=== PATIENT | male | born 1955 | race Caucasian/White ===

== ENCOUNTER 2019-12-06 22:35 | Emergency (ER) | payer MEDICARE, SELFPAY ==
[2019-12-06 22:43] VITALS: BP 150/79; PULSE 103; RESP 18; TEMP 36.8; O2SAT 95; BMI 44.3
--- NOTE | 2019-12-06 22:45 | ED_ITS ---
Entered by Melissa Carranza, acting as scribe for Jackie Chery HPI - General Adult General: Chief complaint: Recheck/Abnormal Lab/Rx Stated complaint: abnormal lab values Time Seen by Provider: 12/06/19 22:44 History of Present Illness: HPI narrative: 64 yo m came to the er for abd blood levels per doctor at a [facility]. Onset was today. Pt was went to go get his blood drawn at his clinic for an er follow and his labs came back abnormal per clinic Doc and she told him to come down to the er to get checked out. MD complaint: abnormal labs Onset (ago): day(s) (today) Associated symptoms: Reports no associated symptoms; Deny chest pain, confusion, diaphoresis, dyspnea, headache(s), malaise, nausea, rash, palpitations, syncope or vomiting Review of Systems General: Reports: other (negative unless marked) Const: Denies: fever, chills, body aches, fatigue, malaise or diaphoresis Eyes: Denies: change in vision or blurry vision ENMT: Denies: throat pain, painful swallowing, hoarseness, ear pain, ear discharge, Change in hearing or nasal discharge Card: Denies: chest pain, palpitations, irregular heart rhythm, syncope, pre- syncope, shortness of breath on exertion or shortness of breath when lying down Resp: Denies: shortness of breath, productive cough, non-productive cough, wheezing, coughing up blood or chest congestion GI: Denies: abdominal pain, nausea, vomiting, vomiting blood, coffee grounds in vomit, diarrhea, constipation, cramping, blood in stool or black tarry stool : Denies: flank pain, difficulty urinating, painful urination, urinary frequency, urinary urgency, decreased urine ouput, urinary incontinence or blood in urine Musc: Denies: neck pain, back pain, extremity pain, extremity swelling, joint pain, joint swelling, joint warmth or joint stiffness Skin/Breast: Denies: rash, skin tenderness or yellow skin Neuro: Denies: headache, numbness in extremities, weakness in extremities, changes in sensation, lack of coordination, difficulty walking, dizziness, vertigo or confusion Endo: Denies: excessive thirst, tired all the time, cold intolerance, excessive sweating, flushing or hot flashes Corey/Lymph: Denies: easy bruising, easy bleeding, petechiae or enlarged lymph nodes All/Imm: Denies: hives, throat swelling, tongue swelling, facial swelling or acute wheezing PFSH ED PFSH: Statuses (acute, chronic, etc) shown below reflect problem list status as previously entered and may not be historically accurate Medical History (Updated 12/06/19 @ 23:40 by Jackie Chery) Anemia (Acute) Arrhythmia (Acute) Arthritis (Acute) Atrial fibrillation (Acute) Atrial flutter (Acute) CAD (coronary artery disease) (Acute) Cellulitis (Acute) CHF (congestive heart failure) (Acute) COPD (chronic obstructive pulmonary disease) (Acute) Diabetes mellitus (Acute) DVT (deep venous thrombosis) (Acute) Hyperlipemia (Acute) Hypertension (Acute) Lung disease (Acute) Polycythemia (Acute) PVD (peripheral vascular disease) (Acute) Thyroid disease (Acute) Surgical History (Updated 12/06/19 @ 23:04 by Melissa Carranza) History of shoulder surgery (Acute) Social History Smoking and tobacco status: former smoker Physical Exam Const: COMMON NORMALS: no apparent distress, oriented x3, no limitations, healthy appearing and well nourished EXAM LIMITATIONS: no altered mental status GENERAL APPEARANCE: cooperative, well kempt and well developed ORIENTATION/CONSCIOUSNESS: Yes awake HENMT: COMMON NORMALS: normocephalic, head/scalp atraumatic, hearing grossly normal bilaterally, external ears normal, EAC's normal, external nose normal and moist oral mucous membranes HEAD & SCALP: normal to inspection, normocephalic and atraumatic FACE & SINUS: normal facial exam and face symmetric NOSE: external nose normal and nares normal EXTERNAL EAR: Yes external ears normal EXTERNAL AUDITORY CANAL: EAC's normal MOUTH: oral and palatal mucosa normal and tongue normal Eye: COMMON NORMALS: PERRL, EOMs intact bilaterally, conjunctivae normal and no scleral icterus GENERAL EYE: normal appearance of both eyes and normal light reflex CONJUNCTIVA: Yes conjunctivae normal SCLERA: sclerae normal CORNEA: Yes corneas normal PUPIL: Yes PERRL DIRECT OPHTHALMOSCOPY: Yes normal light reflex Neck/C-Spine: COMMON NORMALS: full ROM, no lymphadenopathy, supple, no meningeal signs and no JVD GENERAL: Yes normal visual inspection and Yes trachea midline CERVICAL SPINE: Yes cervical ROM normal Chest: COMMONS NORMALS: inspection of chest normal and palpation of chest normal Resp: COMMON NORMALS: normal respiratory effort, no retractions, no use of acc essory muscles and clear to auscultation bilaterally EFFORT & INSPECTION: Yes able to speak in complete sentences AUSCULTATION: clear to auscultation bilaterally Cardio: COMMON NORMALS: no JVD, regular rate, regular rhythm, S1 normal heart sound, S2 normal heart sound, no gallops, no clicks, no murmurs and no rub JUGULAR VENOUS DISTENTION: no JVD RATE: regular rate RHYTHM: regular rhy thm HEART SOUNDS: S1 normal and S2 normal GI: COMMON NORMALS: soft to palpation, non-tender, no hepatosplenomegaly and no masses INSPECTION: Yes normal to inspection PALPATION: Yes soft and Yes no hepatosplenomegaly : COMMON NORMALS: Yes no CVA tenderness BLADDER/KIDNEY EXAM: Yes no CVA tenderness Back/Pelvis: COMMON NORMALS: no CVA tenderness, thoracic and lumbar spine normal to inspection, no thoracic nor lumbar tenderness and thoraco-lumbar ROM normal Extremity: COMMON NORMALS: normal to inspection, full ROM, normal capillary refill, no joint enlargement, no clubbing, cyanosis or edema and no calf tenderness Neuro: COMMON NORMALS: oriented x3, CN's II-XII intact bilaterally, moves all extremities, no focal motor deficits and no sensory deficits noted MENINGEAL SIGNS: Yes no meningeal signs Psych: COMMON NORMALS: mental status grossly normal, thought process normal, cooperative, affect normal, speech normal and activity/motor behavior normal APPEARANCE: Yes well kempt SPEECH: Yes normal speech THOUGHT PROCESS: normal thought process Skin: COMMON NORMALS: no rashes or lesions noted, skin turgor normal, no jaundice, no petechiae and no mottling GENERAL SKIN EXAM: no rashes or lesions noted and turgor normal Course Vital Signs: Vital signs: Vital Signs Temperature 98.2 F 12/06/19 22:43 Pulse Rate 103 H 12/06/19 22:43 Respiratory Rate 18 12/06/19 22:43 Blood Pressure 150/79 12/06/19 22:43 Pulse Oximetry 95 12/06/19 22:43 MDM - General Adult MDM Narrative: Medical decision making narrative: The patient has no chest pain, shortness of breath or other complaints. He is here solely because he was told he had a potassium of 6 something. His potassium is slightly elevated at 5.3 which could even be from hemolysis still but his creatinine is also slightly elevated at 1.3. He has none of his medications with him so I am uncertain if this is a medication effect but I believe he may have been slightly over diuresed recently. He has no symptoms from this and his hyperkalemia is minimal. He wants to go home. He declines any further evaluation or care here. Because this is more complicated and I will need to review his medications he agrees to follow-up tomorrow with his primary care doctor. I did call Dr. Solano who is agreed to see the patient in his office for recheck and will be certain he is fit and to the schedule by him or 1 of his partners tomorrow. I reviewed this with the patient and he is in agreement. Lab Data: Attestation: I reviewed the patient's lab results. Labs: Lab Results 12/06/19 12/06/19 12/06/19 Range/Units 22:54 22:54 23:15 WBC 9.5 (4.0-10.0) 10^3/ uL RBC 7.64 H (4.1-5.3) 10^6/u L Hgb 15.0 (11.7-16.6) g/dL Hct 55.5 H (42.0-52.0) % MCV 72.6 L (80-94) fL MCH 19.6 L (28.0-34.0) pg MCHC 27.0 L (30.0-36.0) g/dL RDW 22.1 H (12.1-15.1) % Plt Count 252 (130-400) 10^3/c mm MPV 10.7 H (7.4-10.4) fL Neut % (Auto) 70.2 % Lymph % (Auto) 15.4 % Trinity % (Auto) 10.2 % Eos % (Auto) 2.7 % Baso % (Auto) 0.8 % Neut # (Auto) 6.6 (1.8-7.7) 10^3/u L Lymph # (Auto) 1.5 (0.8-4.8) 10^3/u L Trinity # (Auto) 1.0 H (0.2-0.9) 10^3/u L Eos # (Auto) 0.3 (0.0-0.8) 10^3/u L Baso # (Auto) 0.1 (0.0-0.1) 10^3/u L Nucleated RBC % (a uto) 0.2 % Nucleated RBCs # 0.0 /100WBC Sodium 131 L (136-145) mmol/L Potassium 5.3 H (3.5-5.1) mmol/L Chloride 92 L (98-107) mmol/L Carbon Dioxide 27 (22-29) mmol/L Anion Gap 17.3 (5-19) BUN 30 H (8-23) mg/dL Creatinine 1.3 H (0.7-1.2) mg/dL GFR Calculation 55.6 L (90-130) mL/min Glucose 252 H (74-106) mg/dL Calcium 9.7 (8.5-10.5) mg/dL Total Bilirubin 0.9 (0.15-1.2) mg/dL AST 21 (0-40) U/L ALT 23 (0-41) U/L Alkaline Phosphata se 66 (40-130) IU/L Total Protein 7.5 (6.6-8.7) g/dL Albumin 4.5 (3.5-5.2) g/dL Globulin 3.0 (1.3-4.6) g/dL Urine Color Yellow (Yellow) Urine Appearance Clear (CLEAR) Urine pH 5 (5-7) Ur Specific Gravit y 1.010 (1.005-1.030) Urine Protein Neg (Negative) Urine Glucose (UA) 4+ H (Normal) Urine Ketones Negative (Negative) Urine Occult Blood Neg (Negative) Urine Nitrate Negative (Negative) Urine Bilirubin Neg (NEGATIVE) Urine Urobilinogen Norm (Negative) mg/dL Ur Leukocyte Mari ase Negative (Negative) Urine RBC None (0-2) /hpf Urine WBC None (0-5) /hpf Ur Squamous Epith Cells None (0-5) Urine Bacteria None (NONE) Discharge Plan Discharge Patient Disposition: Home, Self-Care Clinical Impression: Acute hyperkalemia, Acute renal insufficiency Condition: Stable Discharge Orders: Discharge Order (Routine); Ordered 12/06/19 Ordered By: Jackie Chery Referrals: Hayden Solano Jr, MD [Staff Physician] - 12/07/19 (Be certain to call first thing in the morning is Dr. Solano has assured me he will see you in the office for recheck) Kelsey Burgos, [Primary Care Provider] - Discharge Diet: Advance as tolerated Discharge Activity: Increase activity as tolerated Patient Instructions: Hyperkalemia (ED), Impaired Kidney Function (ED) Activity Restrictions/Additional Instructions: Please return to the ER immediately for any of the signs or symptoms listed on your discharge instruction sheets, worsening/changing of your symptoms, you are not getting better as quickly as expected, or for ANY other cause or concerns. Be certain to follow-up with your doctors at your clinic tomorrow to review all of your blood pressure medications and diuretics. Continue oral fluids but hold off any of your diuretics or blood pressure medications until you see and review those with them. If for any reason you cannot be seen by your doctors tomorrow bring all of your medications with you to the ER and we will review them with you and recheck your potassium and kidney function. I have reviewed your case with Dr. Solano and he has assured me he or 1 of his partners will see you in the office tomorrow for recheck so be certain to call first thing in the morning and bring all of your medications with you so they can review this with you in the office. 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
[2019-12-06 23:04] LABS: Basophils # 0.1 10^3/uL (0.0-0.1); Basophils % 0.8 %; Eosinophils # 0.3 10^3/uL (0.0-0.8); Eosinophils % 2.7 %; Hematocrit 55.5 % (42.0-52.0); Lymphocytes # 1.5 10^3/uL (0.8-4.8); Lymphocytes % 15.4 %; Mean Corpuscular Hemoglobin 19.6 pg (28.0-34.0); Mean Corpuscular Volume 72.6 fL (80-94); Mean Platelet Volume 10.7 fL (7.4-10.4); Monocytes % 10.2 %; Neutrophils # 6.6 10^3/uL (1.8-7.7); Neutrophils % 70.2 %; Nucleated Red Blood Cells % 0.2 %; Platelet Count 252 10^3/cmm (130-400); Red Blood Count 7.64 10^6/uL (4.1-5.3); Red Cell Distribution Width 22.1 % (12.1-15.1); White Blood Count 9.5 10^3/uL (4.0-10.0)
[2019-12-06 23:14] LABS: Slide Review Slide Review Perform
[2019-12-06 23:23] LABS: Alanine Aminotransferase 23 U/L (0-41); Albumin Level 4.5 g/dL (3.5-5.2); Alkaline Phosphatase 66 IU/L (40-130); Anion Gap 17.3 (5-19); Aspartate Amino Transferase 21 U/L (0-40); Blood Urea Nitrogen 30 mg/dL (8-23); Calcium 9.7 mg/dL (8.5-10.5); Carbon Dioxide 27 mmol/L (22-29); Chloride 92 mmol/L (98-107); Glomerular Filtration Rate 55.6 mL/min (90-130); Glucose 252 mg/dL (74-106); Potassium 5.3 mmol/L (3.5-5.1); Sodium 131 mmol/L (136-145); Total Bilirubin 0.9 mg/dL (0.15-1.2); Total Protein 7.5 g/dL (6.6-8.7)
[2019-12-06 23:39] LABS: Bilirubin Urine Neg (NEGATIVE); Blood Urine Neg (Negative); Glucose Urine UA 4+ (Normal); Ketones Urine Negative (Negative); Leukocyte Esterase Urine Negative (Negative); Nitrate Urine Negative (Negative); Protein Urine Neg (Negative); Urine Appearance Clear (CLEAR); Urine Color Yellow (Yellow); Urobilinogen Urine Norm (Negative); pH Urine 5 (5-7)
[2019-12-06 23:49] VITALS: BP 118/72; PULSE 90; RESP 16; O2SAT 93
== END 2019-12-06 23:56 | disposition home or self-care (01) ==
PROVIDERS: Emergency Provider Emergency Medicine; Family Provider Family Medicine; PCP Family Medicine
DX: E87.5 Hyperkalemia (principal); N28.9 Disorder of kidney and ureter, unspecified; I48.91 Unspecified atrial fibrillation; I25.10 Atherosclerotic heart disease of native coronary artery without angina pectoris; I11.0 Hypertensive heart disease with heart failure; I50.9 Heart failure, unspecified; J44.9 Chronic obstructive pulmonary disease, unspecified; E11.9 Type 2 diabetes mellitus without complications; E78.5 Hyperlipidemia, unspecified; I73.9 Peripheral vascular disease, unspecified; Z87.891 Personal history of nicotine dependence
CPT/HCPCS: 80053; 81001; 85025; 99281

== ENCOUNTER 2020-02-29 09:26 | Outpatient (CLI) | payer MEDICARE, SELFPAY | END 2020-02-29 09:27 | disposition home or self-care (01) | LOC: ONCMED 09:32 | PROVIDERS: Family Provider Family Medicine; PCP Family Medicine; Visit Provider Internal Medicine Hematology & Oncology | DX: D75.1 Secondary polycythemia (principal) | CPT/HCPCS: 99195 ==

== ENCOUNTER 2020-03-31 08:03 | Emergency (ER) | payer MEDICARE, SELFPAY ==
[2020-03-31 08:07] VITALS: BP 153/74; PULSE 74; RESP 14; TEMP 36.4; O2SAT 96; BMI 42.7
--- NOTE | 2020-03-31 08:19 | XR_ITS ---
WS: [id number] Right hand, 3 views, 03/31/2020 Clinical Data: trauma Comparison: None. Findings: No new fractures or dislocations are seen. 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 Flexion deformity at the PIP joints of the right fourth and fifth finge rs is seen. There is an old fracture of the right fifth metacarpal. The soft tissues are unremarkabl e. The joint spaces are normal XR/XR hand RT min 3V* [id number] Impression: Negative for new fracture or dislocation.
--- NOTE | 2020-03-31 08:20 | ED_ITS ---
HPI - Extremity Problem General: Chief complaint: Extremity Injury, Upper Stated complaint: right hand injury Time Seen by Provider: 03/31/20 08:06 History of Present Illness: HPI Narrative: Patient comes in complaining about pain in his right hand and fever in it. Patient fell on Tuesday morning landing on the right hand on his concrete floor. Patient said it started hurting more yesterday and swelled up more during the night and began a fever. He did have some abrasions up by his elbow from when he got scratched. Has limited range of motion #4 and 5 fingers. MD Complaint: extremity pain and extremity swelling Onset (ago): day(s) Pain Consistency: constant Location: right and upper extremity Severity scale (1-10): 5 Quality: aching and dull Radiation: proximal Relieving factors: immobilization Exacerbating factors: range of motion Associated symptoms: Reports no associated symptoms; Deny chest pain, fever(s) or rash Review of Systems Const: Denies: fever(s), chills or body aches Eyes: Denies: change in vision or blurry vision ENMT: Denies: throat pain or nasal congestion Card: Denies: chest pain or dyspnea on exertion Resp: Denies: dyspnea, productive cough or non-productive cough GI: Denies: abdominal pain, nausea or vomiting : Denies: difficulty urinating Musc: Reports: extremity pain (Since Tuesday) and extremity swelling (Right hand since Tuesday) Skin/Breast: Reports: other (Fever and right hand); Denies: rash Neuro: Denies: headache(s) Psych: Denies: anxiety or depression Corey/Lymph: Denies: easy bruising [facility] ED PFSH: Medical History (Updated 12/14/19 @ 00:00 by ) Anemia Arrhythmia Arthritis Atrial fibrillation Atrial flutter CAD (coronary artery disease) Cellulitis CHF (congestive heart failure) COPD (chronic obstructive pulmonary disease) Diabetes mellitus DVT (deep venous thrombosis) Hyperlipemia Hypertension Lung disease Polycythemia PVD (peripheral vascular disease) Thyroid disease Surgical History (Updated 12/06/19 @ 23:04 by Melissa Carranza) History of shoulder surgery Social History Smoking and tobacco status: former smoker Physical Exam Const: COMMON NORMALS: no acute distress, average body habitus and patient oriented x3 HENMT: COMMON NORMALS: normocephalic HEAD & SCALP: normal to inspection and normocephalic FACE & SINUS: normal facial exam Eye: COMMON NORMALS: conjunctivae normal GENERAL EYE: appearance normal, both eyes and all related structures CONJUNCTIVA: Yes conjunctivae normal Neck/C-Spine: COMMON NORMALS: no JVD Chest: COMMONS NORMALS: normal inspection of the chest Resp: COMMON NORMALS: normal respiratory effort and clear to auscultation bilaterally AUSCULTATION: clear to auscultation bilaterally Cardio: COMMON NORMALS: no JVD, regular rate and regular rhythm RATE: regular rate RHYTHM: regular rhythm GI: COMMON NORMALS: Normal to inspection, nondistended, normoactive bowel sounds present Extremity: RIGHT UPPER EXTREMITY: Yes lower arm (There are abrasion present right near the elbow and slightly distal of it but there is no redness or swelling noted around these abrasions), Yes wrist (Tender) and Yes hand & digits (Right #4 and 5 digits are swelled has redness from those fingers up to about middle of the forearm has limited range of motion neurovascular status intact 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
--- NOTE | 2020-03-31 08:20 | XR_ITS ---
WS: [id number] Right wrist, 3 views, 03/31/2020 Clinical Data: trauma Comparison: None. Findings: No new fractures or dislocations are seen. The carpal bones are intact. There is no soft tissue swell ing. The distal radius and ulna are not remarkable. There is an old fracture of the right fifth metacarpal XR/XR wrist RT min 3V* [id number] Impression: Negative right wrist.
[2020-03-31 08:30] LABS: Basophils # 0.1 10^3/uL (0.0-0.1); Basophils % 0.7 %; Eosinophils # 0.2 10^3/uL (0.0-0.8); Eosinophils % 2.5 %; Hematocrit 50.5 % (42.0-52.0); Hemoglobin 13.5 g/dL (11.7-16.6); Lymphocytes # 0.8 10^3/uL (0.8-4.8); Lymphocytes % 11.3 %; Mean Corpuscular HGB Conc 26.7 g/dL (30.0-36.0); Mean Corpuscular Hemoglobin 19.7 pg (28.0-34.0); Mean Corpuscular Volume 73.5 fL (80-94); Mean Platelet Volume 9.5 fL (7.4-10.4); Monocytes # 0.7 10^3/uL (0.2-0.9); Neutrophils # 5.3 10^3/uL (1.8-7.7); Neutrophils % 75.1 %; Nucleated Red Blood Cells % 0 %; Platelet Count 218 10^3/cmm (130-400); Red Blood Count 6.87 10^6/uL (4.1-5.3); Red Cell Distribution Width 23.5 % (12.1-15.1); White Blood Count 7.1 10^3/uL (4.0-10.0)
[2020-03-31 08:48] LABS: Blood Urea Nitrogen 21 mg/dL (8-23); Calcium 9.4 mg/dL (8.5-10.5); Carbon Dioxide 27 mmol/L (22-29); Chloride 99 mmol/L (98-107); Glomerular Filtration Rate 67.4 mL/min (90-130); Glucose 249 mg/dL (65-115); Osmolality Calculated 287 mOsm/kg (285-295); Sodium 136 mmol/L (136-145); Uric Acid 6.1 mg/dL (3.4-7.0)
[2020-03-31] MEDS: tetanus-dipt-pertussis 0.5 mL SDV IM (08:55)
[2020-03-31 09:09] VITALS: BP 141/68; PULSE 82; RESP 18; O2SAT 98
== END 2020-03-31 09:10 | disposition home or self-care (01) ==
PROVIDERS: Emergency Provider Nurse Practitioner Family; PCP Family Medicine
DX: M79.641 Pain in right hand (principal); I48.91 Unspecified atrial fibrillation; I25.10 Atherosclerotic heart disease of native coronary artery without angina pectoris; I11.0 Hypertensive heart disease with heart failure; I50.9 Heart failure, unspecified; J44.9 Chronic obstructive pulmonary disease, unspecified; E11.9 Type 2 diabetes mellitus without complications; E78.5 Hyperlipidemia, unspecified; Z87.891 Personal history of nicotine dependence; Z23 Encounter for immunization; S50.311A Abrasion of right elbow, initial encounter; W22.09XA Striking against other stationary object, initial encounter
CPT/HCPCS: 12345; 36415; 73110; 73130; 80048; 84550; 85025; 90471; 90715; 99281; 99283

== ENCOUNTER 2020-04-03 11:46 | Outpatient (CLI) | payer MEDICARE, SELFPAY ==
[2020-04-03 12:13] LABS: Basophils # 0.1 10^3/uL (0.0-0.1); Basophils % 0.6 %; Eosinophils # 0.2 10^3/uL (0.0-0.8); Eosinophils % 2.3 %; Hematocrit 51.2 % (42.0-52.0); Hemoglobin 13.6 g/dL (11.7-16.6); Lymphocytes # 0.9 10^3/uL (0.8-4.8); Mean Corpuscular HGB Conc 26.6 g/dL (30.0-36.0); Mean Corpuscular Hemoglobin 19.6 pg (28.0-34.0); Mean Corpuscular Volume 73.7 fL (80-94); Mean Platelet Volume 9.2 fL (7.4-10.4); Monocytes # 0.8 10^3/uL (0.2-0.9); Monocytes % 10.7 %; Neutrophils # 5.9 10^3/uL (1.8-7.7); Nucleated Red Blood Cells % 0 %; Platelet Count 246 10^3/cmm (130-400); Red Blood Count 6.95 10^6/uL (4.1-5.3); Red Cell Distribution Width 23.9 % (12.1-15.1); White Blood Count 7.9 10^3/uL (4.0-10.0)
== END 2020-04-03 11:47 | disposition home or self-care (01) ==
LOC: ONCMED 11:50
PROVIDERS: PCP Family Medicine; Visit Provider Internal Medicine Medical Oncology
DX: D75.1 Secondary polycythemia (principal); E78.5 Hyperlipidemia, unspecified; I10 Essential (primary) hypertension; E03.9 Hypothyroidism, unspecified; J84.10 Pulmonary fibrosis, unspecified; E66.01 Morbid (severe) obesity due to excess calories; G47.33 Obstructive sleep apnea (adult) (pediatric); E11.42 Type 2 diabetes mellitus with diabetic polyneuropathy
CPT/HCPCS: 36415; 85025; 99195; 99211

== ENCOUNTER 2020-05-05 14:36 | Outpatient (CLI) | payer MEDICARE, SELFPAY ==
[2020-05-05 15:28] LABS: Basophils # 0.1 10^3/uL (0.0-0.1); Basophils % 0.7 %; Eosinophils # 0.2 10^3/uL (0.0-0.8); Eosinophils % 2.5 %; Hematocrit 52.1 % (42.0-52.0); Hemoglobin 14.1 g/dL (11.7-16.6); Lymphocytes # 1.1 10^3/uL (0.8-4.8); Lymphocytes % 12.5 %; Mean Corpuscular HGB Conc 27.1 g/dL (30.0-36.0); Mean Corpuscular Hemoglobin 19.7 pg (28.0-34.0); Mean Corpuscular Volume 72.7 fL (80-94); Mean Platelet Volume 9.8 fL (7.4-10.4); Monocytes # 0.9 10^3/uL (0.2-0.9); Monocytes % 10.3 %; Neutrophils # 6.3 10^3/uL (1.8-7.7); Neutrophils % 73.3 %; Nucleated Red Blood Cells # 0.1 /100WBC; Nucleated Red Blood Cells % 0.7 %; Platelet Count 274 10^3/cmm (130-400); Red Blood Count 7.17 10^6/uL (4.1-5.3); White Blood Count 8.5 10^3/uL (4.0-10.0)
[2020-05-05 15:57] LABS: Slide Review Slide Review Perform
== END 2020-05-05 14:37 | disposition home or self-care (01) ==
LOC: ONCMED 14:40
PROVIDERS: PCP Family Medicine; Visit Provider Internal Medicine Medical Oncology
DX: D75.1 Secondary polycythemia (principal)
CPT/HCPCS: 36415; 85025; 99195

== ENCOUNTER 2020-06-05 13:29 | Outpatient (CLI) | payer MEDICARE, SELFPAY ==
[2020-06-05 14:03] LABS: Basophils # 0.1 10^3/uL (0.0-0.1); Basophils % 0.9 %; Eosinophils # 0.2 10^3/uL (0.0-0.8); Eosinophils % 2.6 %; Hematocrit 45.7 % (42.0-52.0); Hemoglobin 11.8 g/dL (11.7-16.6); Lymphocytes # 0.8 10^3/uL (0.8-4.8); Lymphocytes % 10.4 %; Mean Corpuscular HGB Conc 25.8 g/dL (30.0-36.0); Mean Corpuscular Hemoglobin 18.5 pg (28.0-34.0); Mean Corpuscular Volume 71.6 fL (80-94); Monocytes # 0.7 10^3/uL (0.2-0.9); Monocytes % 9.1 %; Neutrophils # 5.83 10^3/uL (1.8-7.7); Neutrophils % 76.6 %; Nucleated Red Blood Cells % 0.3 %; Platelet Count 243 10^3/cmm (130-400); Red Blood Count 6.38 10^6/uL (4.1-5.3); Red Cell Distribution Width 22.2 % (12.1-15.1); White Blood Count 7.6 10^3/uL (4.0-10.0)
[2020-06-05 14:15] LABS: Slide Review Slide Review Perform
--- NOTE | 2020-06-06 07:18 | ONC FU_ITS ---
Dr. Petty Patient Follow-Up Note Patient: Everardo Londono Unit #: [id number]: 1955 Dicatated By: Landon Petty M.D.Date of Visit:Jun 05, 2020 Onc Med Follow-up/Prog Note Chief Complaint: Secondary polycythemia. History of Present Illness: This is a 64 year-old man with significantly elevated hemoglobin/hematocrit levels. His evaluation was consistent with secondary polycythemia. I had seen him initially on 12/02/2016 in regard to an elevated blood count. The available records included a CBC from 07/09/2016 which showed an elevated hemoglobin level at 17.9 g with hematocrit 58.8%. The WBC was 8200, and the platelet count was 145,000. The red cell indices were normal. A more recent CBC, from 10/15/2016 showed further increase in the hemoglobin to 19.2 g with hematocrit 61.7%. The WBC remained normal at 8700 with platelet count slightly low at 124,000. In reviewing his records in [facility], there were at least several previous blood counts which dated back to 2008. Most of these showed borderline high hemoglobin/hematocrit levels. However, in 2010 he actually was mildly anemic. In March 2011 he had an admission to the hospital for acute on chronic respiratory failure with hypoxia and hypercapnia. It was felt that he had a combination of obesity/hypoventilation syndrome and some restrictive airway disease. The record indicated a history of congestive heart failure. A CT pulmonary angiogram in April 2016 showed mild generalized pulmonary fibrosis. His subsequent evaluation revealed an erythropoietin level in the normal range at 38 mIU/mL. His serum iron studies show slightly low transferrin saturation at 18.9% with ferritin normal at 113 ng/mL. The JAK2 V617F and the LB 2 exon 12 mutation is were not detected. As such, he did appeared to have secondary polycythemia. At that time he had been receiving testosterone injections for androgen deficiency, and those were subsequently stopped. He had initially failed to return for followup. He then had admissions to the hospital for chest pain on 12/25/2016 and on 03/22/2017. With the latter admission his CBC showed hemoglobin 20.3 g with hematocrit 63%. The white blood cell count was 10,600 and the platelet count was 136,000. His chem profile showed BUN 17 and creatinine 1.2 mg/dL. Liver enzymes were normal. His echocardiogram showed moderate left ventricular hypertrophy with estimated left ventricular ejection fraction at 55%. The right atrial pressure was estimated at 5 mmHg. He has multiple medical illnesses including hypertension, hyperlipidemia, type II diabetes, hypothyroidism, peripheral neuropathy, pulmonary fibrosis, obesity/hypoventilation, and obstructive sleep apnea. He is on CPAP at home. He has had chronic back pain following a back injury about 15 years ago. He also has androgen deficiency. He has history of smoking 2 packs of cigarettes daily for 20 years, but he quit smoking approximately 2004. INTERIM HISTORY: I had seen him for a follow-up visit on 03/28/2017, and at that point he did start phlebotomies, initially at a weekly interval, later reduced to every 2 weeks. Those were stopped following his phlebotomy on 05/03/2017, as his hematocrit had subsequently had come down to under 50%. He is seen for a scheduled followup visit. He has limited activity. He is able to do some light work. ECOG is 1. He has good appetite, but he has lost weight. He has not had fever. He does report having bad night sweating. He has shortness of breath. He has cough in the mornings. He does not complain of chest pain. He has no GI complaints. He has urinary frequency and nocturia. He has pain in his shoulders and knees. He also has some pain in his neck and back. He has some staggering, but not as bad now. Medications: Atorvastatin Calcium 1 Tablet (of 40 mg) Oral daily, B Complex 1 Tablet Oral daily, Bydureon Subcutaneous q 1 week, CeleXA 1 (10 mg) Tablet Oral daily, Cetirizine HCl 1 (10 mg) Tablet Oral daily, [facility] Fish Oil 1 Capsule (of 1200 mg) Oral daily, [facility] Vitamin E 1 (400 Units) Capsule Oral daily, Furosemide 1 Tablet (of 40 mg) Oral daily, GlipiZIDE 1 Tablet (of 10 mg) Oral b.i.d., Glyxambi 1 Tablet (of 25-5 mg) Oral daily, Hydrocodone-Acetaminophen 1 Tablet (of 7.5-325 mg) Oral q 4 hours PRN, Klor-Con M20 1 Tablet (of 20 meq) Tablet, controlled release Oral b.i.d., Levo-T 1 Tablet (of 125 mcg) Oral daily, Lisinopril 1 Tablet (of 10 mg) Oral daily, MetFORMIN HCl 1 (1000 mg) Tablet Oral b.i.d., Metoprolol Tartrate 1 (50 mg) Tablet Oral daily, Mexiletine HCl 1 Capsule (of 150 mg) Oral t.i.d., Xarelto 1 (20 mg) Tablet Oral daily Allergies: Bactrim, Penicillins, and Tetracycline HCl. Review of Systems: Constitutional - He has limited activity but he is able to do some light work. His appetite is good. He has lost weight. No fever. He has bad night sweating. ECOG score is 1, ENMT - He has some alleregy related sinus symptoms. No mouth sores. No sore throat or difficulty swallowing, Hematologic/Lymphatic - He has easy bruising, Respiratory - He has shortness of breath. He has cough in the mornings. No pleuritic pain or hemoptysis, Cardiovascular - No angina pain. No palpitations, Gastrointestinal - He has nausea when it is really hot. No heartburn or acid reflux. No diarrhea or constipation. No blood in the stool or black stools, Genitourinary (M) - No dysuria or hematuria. He has urinary frequency and nocturia. No urgency or incontinence, Musculoskeletal - He has pain in his shoulders and knees. He has some pain in his neck and back, Integumentary - No skin complications, Neurologic - He has occasional headache. He was staggering a lot, but not as bad now. He has numbness in the index of middle fingers of his left hand, Psychiatric - He has anxiety and depression. No insomnia. Vital Signs: Performed on Jun 05, 2020 14:31 Height - 72.00 in Weight - 326.6 lbs (LOW) BSA - 2.62 sq.m BMI - 44.30 (HIGH) Temperature - 97.8 F (LOW) Pulse - 77 /min Respiration - 24 /min BP - 120/74 mm(hg) O2 Sat - 93 % (LOW) Pain - 0 Physical Examination: Constitutional - He looks pretty good generally, Eyes - Sclerae nonicteric. Conjunctivae clear, ENMT - No lesions noted in the oral cavity, Hematologic/Lymphatic - No cervical, clavicular, or axillary adenopathy, Respiratory - Lungs are clear with diminished air movement bilaterally, Cardiovascular - Heart rhythm is irregular. There is no murmur, gallop or rub noted, Abdomen - Distended. Liver and spleen are not enlarged. There is no abdominal mass or ascites noted and there is no inguinal adenopathy, Extremities - There are chronic venous stasis changes bilaterally. There is mild edema, Neurologic - No focal neurologic deficits noted. Lab/Imaging: Test performed on Jun 05, 2020 13:43 WBC 7.6 10 3/uL RBC 6.38 10 6/uL HGB 11.8 g/dL HCT 45.7 % MCV 71.6 fL MCH 18.5 pg MCHC 25.8 g/dL RDW 22.2 % Platelet Count 243 10 3/cmm MPV 10.0 fL Neutrophils 5.83 10 3/uL Lymphocytes 0.8 10 3/uL Monocytes 0.7 10 3/uL Eosinophils 0.2 10 3/uL Basophils 0.1 10 3/uL Neutrophil % 76.6 % Lymphocyte % 10.4 % Monocyte % 9.1 % Eosinophil % 2.6 % Basophils % 0.9 % NRBC % 0.3 % CBC Slide Review Slide Review Perform SLIDE REVIEW AGREES WITH AUTOMATED RESULTS Impression: 1. Patient with moderately elevated hemoglobin/hematocrit levels. His laboratory evaluation in November 2016 was consistent with secondary polycythemia. 2. He has a borderline low to mildly decreased platelet count. The cause/clinical significance is uncertain. His other medical illnesses include: 3. Hypertension. 4. Hyperlipidemia. 5. Type II diabetes with peripheral neuropathy. 6. Hypothyroidism. 7. Obesity/hypoventilation. 8. Obstructive sleep apnea. 9. There is CT evidence of mild, generalized pulmonary fibrosis. 10. Chronic back pain. 11. Androgen deficiency, previously on replacement therapy. As of his hospital admission in March 2017 his hemoglobin/hematocrit levels had become significantly elevated, to 20.3 g and 63%. I had seen him for a follow-up visit on 03/28/2017, and at that point he did start weekly phlebotomies. His blood counts then came down gradually, and the phlebotomies were reduced to every 2 weeks. During that time he had been showing some improvement in his activity tolerance. He was last phlebotomized on 05/03/2017, as his subsequent blood counts had shown his hematocrit level down to under 50%. During follow-up he had opted to resume his testosterone injections, and he subsequently did require some additional phlebotomies. His CBC now shows mild anemia, undoubtedly due to iron deficiency. Plan: He will be scheduled for a follow-up visit in 3 months. I will not plan any further phlebotomies unless his hematocrit increases to at least 53%. Signed By: Landon Petty M.D. <<Signature on File>>
== END 2020-06-05 13:30 | disposition home or self-care (01) ==
LOC: ONCMED 13:29
PROVIDERS: PCP Family Medicine; Visit Provider Internal Medicine Medical Oncology
DX: D75.1 Secondary polycythemia (principal); D50.9 Iron deficiency anemia, unspecified; I10 Essential (primary) hypertension; E78.5 Hyperlipidemia, unspecified; E11.42 Type 2 diabetes mellitus with diabetic polyneuropathy; E03.9 Hypothyroidism, unspecified; E66.9 Obesity, unspecified; G47.33 Obstructive sleep apnea (adult) (pediatric); Z68.41 Body mass index [BMI] 40.0-44.9, adult; J84.10 Pulmonary fibrosis, unspecified; G89.29 Other chronic pain; E29.1 Testicular hypofunction
CPT/HCPCS: 85025; 99214

== ENCOUNTER 2020-06-24 15:13 | Inpatient (IN) | payer MEDICARE, MEDICAID, SELFPAY ==
[2020-06-24] VITALS (7 sets, daily range): BP systolic 145–186; BP diastolic 79–103; PULSE 93–120; RESP 16–20; TEMP 36.2–36.6; O2SAT 87–98; BMI 43.5
--- NOTE | 2020-06-24 16:21 | ECG_ITS ---
[facility] Test Date: 2020-06-24 Pat Name: Everardo Londono Department: Room: Gender: Male [employer]: : 1955 Requested By: Harrison Parrish Order Number: [id number] Hipolito MD: John Rodney M.D. Measurements Intervals [place] Rate: 82 P: OR: -1 QRS: -64 QRSD: 110 T: 52 QT: 359 QTc: 420 Interpretive Statements ATRIAL FIBRILLATION LEFT ANTERIOR FASCICULAR BLOCK [QRS AXIS <= -45, QR IN I, RS IN II] POSSIBLE ANTERIOR MYOCARDIAL INFARCTION , OF INDETERMINATE AGE [30 ms Q WAVE IN V3/V4, OR R < 0.2 mV IN V4] Compared to ECG 11/07/2019 04:55:07 No significant changes Electronically Signed On 06-25-2020 0:30:24 CDT by John Rodney M.D. [email or web address].[address] [id number]
--- NOTE | 2020-06-24 16:21 | XRR_ITS ---
PROCEDURE INFORMATION: Exam: XR Chest, 1 View Exam date and time: 06/24/2020 4:22 PM Age: 64 years old Clinical indication: Cough and dyspnea; Smoker's cough; Additional info: Dyspnea/cough TECHNIQUE: Imaging protocol: XR of the chest Views: 1 view. COMPARISON: CR Chest 1 [place] [id number] 11/07/2019 3:24 AM FINDINGS: Lungs: There is unchanged bibasilar interstitial prominence and mild ground-glass opacity compatible with fibrosis or recurrent mild pneumonitis. No dense lobar consolidation. Pleural space: There is unchanged small right pleural effusion versus pleural thickening. No left pleural effusion. No pneumothorax. Heart/Mediastinum: The heart is enlarged. Bones/joints: No acute abnormality. XR/XR chest 1V portable [id number] IMPRESSION: There is unchanged bibasilar interstitial prominence and mild ground-glass opacity compatible with fibrosis or recurrent mild pneumonitis. Unchanged exam.
[2020-06-24 17:00] LABS: Basophils # 0.1 10^3/uL (0.0-0.1); Eosinophils # 0.2 10^3/uL (0.0-0.8); Eosinophils % 2.3 %; Hematocrit 47.9 % (42.0-52.0); Hemoglobin 12.3 g/dL (11.7-16.6); Lymphocytes # 0.9 10^3/uL (0.8-4.8); Lymphocytes % 10.5 %; Mean Corpuscular HGB Conc 25.7 g/dL (30.0-36.0); Mean Corpuscular Hemoglobin 18.2 pg (28.0-34.0); Monocytes # 0.8 10^3/uL (0.2-0.9); Neutrophils # 6.23 10^3/uL (1.8-7.7); Neutrophils % 75.7 %; Nucleated Red Blood Cells % 0.2 %; Platelet Count 214 10^3/cmm (130-400); Red Blood Count 6.75 10^6/uL (4.1-5.3); Red Cell Distribution Width 22.8 % (12.1-15.1); White Blood Count 8.2 10^3/uL (4.0-10.0)
[2020-06-24 17:12] LABS: Alanine Aminotransferase 13 U/L (0-41); Albumin Level 4.4 g/dL (3.5-5.2); Alkaline Phosphatase 57 IU/L (40-130); Anion Gap 13.7 (5-19); Aspartate Amino Transferase 19 U/L (0-40); Blood Urea Nitrogen 14 mg/dL (8-23); Carbon Dioxide 30 mmol/L (22-29); Chloride 97 mmol/L (98-107); Glucose 201 mg/dL (65-115); NT Pro B Type Natriuretic Pept 1072 pg/mL (0-125); Osmolality Calculated 284 mOsm/kg (285-295); Potassium 4.7 mmol/L (3.5-5.1); Sodium 136 mmol/L (136-145); Total Bilirubin 1.2 mg/dL (0.15-1.2); Total Protein 7.4 g/dL (6.6-8.7)
--- NOTE | 2020-06-24 17:12 | W.ED.GENADLT ---
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 instructed Patient Instructions: Carvedilol (By mouth), Heart Failure (DC), Atrial Fibrillation (DC), CHF Stoplight, Post Angiogram Home Care Instructions Additional Instructions: Please continue to wear your CPAP anytime you are asleep. Wear oxygen during the day at 2 L as instructed by respiratory therapy. Please follow-up with your primary care doctor with regards to multiple pulmonary conditions, please discuss referral for pulmonary function testing due to concern for possible pulmonary fibrosis, or other interstitial lung disease, to try to diagnose it early. Discussed also referral to a records and tape recordings engineer with a pulmonary function test results. Due to nonischemic cardiomyopathy leading to heart failure, continue Lasix 40 mg in the morning, 20 mg in the afternoon for now until reassessed by her primary care doctor, and boiler washer in office. If you experience worsening shortness of breath, significant weight gain, lower extremity swelling, more shortness of breath when lying flat, or other symptoms, please contact your primary care doctor or boiler washer office. If you experience severe shortness of breath, chest pain, fainting, or other abnormal symptoms, please seek medical attention without delay. Avandia (rosiglitazone), 1 of your diabetes medications, is discontinued as in some uncommon instances it can lead to heart failure, and other cardiac complications. Please consider and discuss with your doctor discontinuation of testosterone as it can sometimes worsen heart failure as well, and in your case also consider discontinuing it due to elevated red blood cell counts. Continue follow-up with Dr. Petty with regards to polycythemia (elevated red blood cell counts). Discussed also with him with regards to testosterone therapy. As your A1c is 9.6, your diabetes needs better control. Please discuss with your primary care doctor and again revisit starting on insulin to bring your A1c closer to 8 to avoid long-term complications associated with diabetes. Due to intermittently slow heart rates noted before metoprolol was discontinued, you are referred to be set up for an event monitor on Tuesday. Please follow-up with Dr. Elena in office regarding the results. At this time metoprolol has been discontinued, and instead carvedilol is started. Consider obtaining a blood pressure or pulse oximetry measuring device which can also measure your pulse if you are unable to measure it on your wrist. In case your pulse is persistently low, below 60 bpm, or persistently high above 110 bpm even at rest, please contact your doctor. Continue follow-up with your eye doctor after you recover to resume preparations for the other cataract surgery. DR ELENA'S (TERMITE CONTROL SERVICER)OFFICE SHOULD BE CALLING YOU WITH AN APPOINTMENT TO SCHEDULE THE INVESTOR RELATIONS COORDINATOR PLACEMENT AND AN APPOINTMENT WITH HIM.IF YOU HAVE NOT HEARD FROM THEM BY Tuesday..CALL [phone] Discharge Date/Time: 06/24/20 21:31 Sign Out Sign Out Data: Patient Sign Out occurred on 06/24/20 at 18:05. Patient's care was discussed, and care was transferred from to Jackie Gray Miri. Coding Level of Care Code ED Stationary Boiler Fireman for Talha Fwd Exam Comprehensive
[2020-06-24 17:17] LABS: Troponin(5th) Baseline 17 ng/L (0-15)
--- NOTE | 2020-06-24 17:31 | CTR_ITS ---
PROCEDURE INFORMATION: Exam: CT Angiography Chest With Contrast Exam date and time: 06/24/2020 5:54 PM Age: 64 years old Clinical indication: Shortness of breath; Additional info: Dyspnea/hypoxia TECHNIQUE: Imaging protocol: Computed tomographic angiography of the chest with intravenous contrast. 3D rendering: MIP and/or 3D reconstructed images were created by the technologist. Radiation optimization: All CT scans at this facility use at least one of these dose optimization techniques: automated exposure control; mA and/or kV adjustment per patient size (includes targeted exams where dose is matched to clinical indication); or iterative reconstruction. Contrast material: OMNI 350; Contrast volume: 83 ml; Contrast route: INTRAVENOUS (IV); COMPARISON: CTA Chest-Pulmonary Emb [id number] 02/08/2019 1:04 AM RADIATION DOSE METRICS: Total DLP (mGy-cm): 673.09 FINDINGS: Pulmonary arteries: There is no pulmonary embolus. A impression. Aorta: Unremarkable. No aortic aneurysm. No aortic dissection. Lungs: There is mild ground-glass opacity in the lungs compatible with mild pneumonitis and/or atelectasis greatest in the right lower lobe. No dense consolidation. Pleural space: There is a small right pleural effusion. Heart: The heart is enlarged. Mediastinal space: A small hiatal hernia is present. Lymph nodes: Unremarkable. No enlarged lymph nodes. Bones/joints: Unremarkable. No acute fracture. Soft tissues: Unremarkable. CT/CT angio chest PE protcl [id number] IMPRESSION: There is mild ground-glass opacity in the lungs compatible with mild pneumonitis and/or atelectasis greatest in the right lower lobe. There is a pleural effusion. Radiation Dose CTDIVOL = (mGy): DLP = 673.09 (mGy-cm)
[2020-06-24] MEDS: FUROsemide 10 mg/mL SDV 10mL 80 MG IVP (17:37)
--- NOTE | 2020-06-24 17:56 | ECG_ITS ---
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 Measurements Intervals [place] Rate: 83 P: LA: -1 QRS: -69 QRSD: 106 T: 65 QT: 353 QTc: 417 Interpretive Statements ATRIAL FIBRILLATION LEFT ANTERIOR FASCICULAR BLOCK [QRS AXIS <= -45, QR IN I, RS IN II] POSSIBLE ANTERIOR MYOCARDIAL INFARCTION , OF INDETERMINATE AGE [30 ms Q WAVE IN V3/V4, OR R < 0.2 mV IN V4] Compared to ECG 06/24/2020 18:16:16 No significant changes Electronically Signed On 06-25-2020 0:30:56 CDT by John Rodney M.D. [id number]
[2020-06-24] MEDS: iohexol 350 mg/mL 100 mL Btl IV (18:05)
--- NOTE | 2020-06-24 18:21 | ECG_ITS ---
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 Measurements Intervals [place] Rate: 91 P: IN: -1 QRS: -67 QRSD: 112 T: 73 QT: 355 QTc: 438 Interpretive Statements ATRIAL FIBRILLATION LEFT ANTERIOR FASCICULAR BLOCK [QRS AXIS <= -45, QR IN I, RS IN II] POSSIBLE ANTERIOR MYOCARDIAL INFARCTION , OF INDETERMINATE AGE [30 ms Q WAVE IN V3/V4, OR R < 0.2 mV IN V4] Compared to ECG 06/24/2020 16:36:07 No significant changes Electronically Signed On 06-25-2020 0:40:15 CDT by John Rodney M.D. [id number]
[2020-06-24 18:37] LABS: Slide Review Slide Review Perform
--- NOTE | 2020-06-24 18:51 | PC.NURSE ---
Covid-19 swab collected
[2020-06-24 18:53] LABS: Troponin 5 2HR 18.68 ng/L (0-15); Troponin 5 2HR Delta 1.68 ABS# (0-10)
[2020-06-24 19:14] LABS: SARS Covid-2 Antigen Negative (Negative)
[2020-06-24] MEDS: nitroglycerin 1 gm/inch oint Pkt 1 INCH TOPICAL (19:22)
[2020-06-24] MEDS: dilTIAZem 60 mg Tablet 30 MG PO (20:07)
[2020-06-24] MEDS: acetaminophen 500 mg Tablet 1000 MG PO (20:12)
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
--- NOTE | 2020-06-24 22:21 | ECG_ITS ---
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 Measurements Intervals [place] Rate: 102 P: [place]: -1 QRS: -80 QRSD: 100 T: 72 QT: 339 QTc: 442 Interpretive Statements ATRIAL FIBRILLATION WITH RAPID VENTRICULAR RESPONSE WITH ABERRANT CONDUCTION OR VENTRICULAR PREMATURE COMPLEXES MARKED LEFT AXIS DEVIATION [QRS AXIS < -30] LOW QRS VOLTAGE IN PRECORDIAL LEADS [QRS DEFLECTION < 1.0 mV IN CHEST LEADS] POSSIBLE ANTERIOR MYOCARDIAL INFARCTION [30 ms Q WAVE IN V3/V4, OR R < 0.2 mV IN V4], PROBABLY OLD Compared to ECG 06/24/2020 19:39:29 Ventricular premature complex(es) now present Aberrant conduction of supraventricular beat(s) now present Left-axis deviation now present Low QRS voltage now present Left anterior fascicular block no longer present Myocardial infarct finding still present Electronically Signed On 06-25-2020 0:42:14 CDT by John Rodney M.D. [id number]
[2020-06-24] MEDS: trazodone 50 mg Tablet PO (22:46)
[2020-06-24 23:12] LABS: Troponin 5 6HR 19.79 ng/L (0-15); Troponin 5 6HR Delta 2.79 ng/L (0-12)
[2020-06-25] VITALS (13 sets, daily range): BP systolic 112–160; BP diastolic 58–84; PULSE 74–115; RESP 16–20; TEMP 36.4–36.9; O2SAT 87–98
--- NOTE | 2020-06-25 06:00 | USCV_ITS ---
Everardo Londono Age: 64 Gender: M : 1955 Exam Date: 06/25/2020 05:58 Ordering Phys: Seema Frye MD Technologist: Bradly Garzon Exam Location: [facility] [place] Indication: ACUTE CFV BP: 131 / 75 HR: 47 Rhythm: Atrial fibrillation Technical Quality: Very technically difficult study MEASUREMENTS (Male / Female) Normal Values 2D ECHO LV Diastolic Diameter PLAX 4.6 cm 4.2 - 5.9 / 3.9 - 5.3 cm LV Systolic Diameter PLAX 2.9 cm IVS Diastolic Thickness 1.0 cm 0.6 - 1.0 / 0.6 - 0.9 cm IVS Systolic Thickness 1.6 cm LVPW Diastolic Thickness 1.0 cm 0.6 - 1.0 / 0.6 - 0.9 cm LVPW Systolic Thickness 1.3 cm LVOT Diameter 2.0 cm LV Ejection Fraction 2D Teich 66.4 % LV Ejection Fraction MOD 2C 52.0 % LV Ejection Fraction 2C AL 52.3 % LA Diameter 5.1 cm LA Width 5.4 cm LA Height 7.0 cm RA Width 4.1 cm RA Height 6.1 cm Aorta at Sinotubular Diameter 1.2 cm M-MODE LV Diastolic Diameter MM 5.3 cm 4.2 - 5.9 / 3.9 - 5.3 cm LV Systolic Diameter MM 2.9 cm LV Ejection Fraction MM Teich 75.2 % IVS Diastolic Thickness MM 1.3 cm 0.6 - 1.0 / 0.6 - 0.9 cm IVS Systolic Thickness MM 1.7 cm LVPW Diastolic Thickness MM 1.4 cm 0.6 - 1.0 / 0.6 - 0.9 cm LVPW Systolic Thickness MM 1.8 cm RV Diastolic Diameter MM 2.7 cm Aortic Annulus Diameter 3.9 cm LA Ao Ratio MM 1.3 MV E Point Septal Separation 0.8 cm DOPPLER AV Peak Velocity 166.0 cm/s LVOT Peak Velocity 94.0 cm/s AV Area Cont Eq vti 1.5 cm squared AV Area Cont Eq pk 1.8 cm squared MV Area PHT 5.0 cm squared Mitral E to A Ratio 2.5 MV E' Velocity 11.0 cm/s Mitral E to MV E' Ratio 13.3 Mitral E to LV E' Lateral Ratio 12.5 Mitral E to LV E' Septal Ratio 14.1 TR Peak Velocity 186.0 cm/s TR Peak Gradient 13.8 mmHg TV Peak E Velocity 104.0 cm/s Right Atrial Pressure 3.0 mmHg Pulmonary Artery Systolic Pressu 16.8 mmHg PV Peak Velocity 127.0 cm/s FINDINGS Left Ventricle Left ventricular cavity not well visualized. Probably mildly increased left ventricular cavity. Probably mildly decreased left ventricle systolic function. Left ventricular ejection fraction is estimated at 45-50 %. This study is inadequate for estimation of regional wall motion abnormality. Abnormal septal motion. Right Ventricle Right ventricle not well visualized. Probably mildly decreased right ventricular systolic function. Right ventricular systolic pressure 16.8 mmHg. Right Atrium Right atrium not well visualized. Left Atrium Probably mildly increased left atrial size. Mitral Valve Moderately thickened mitral valve. Aortic Valve Aortic valve not well visualized. No aortic valve stenosis. Tricuspid Valve Tricuspid valve not well visualized. Pulmonic Valve Pulmonic valve not well visualized. Pericardium No pericardial effusion. Aorta Normal-sized aortic root CONCLUSIONS 1. This is a technically very difficult study. 2. Probably mildly increased left ventricular cavity. Probably mildly decreased left ventricle systolic function. Left ventricular ejection fraction is estimated at 45-50 %. This study is inadequate for estimation of regional wall motion abnormality. Abnormal septal motion. 3. Repeat study with ultrasound enhancing agent is recommended. 4. Direct comparison to previous echocardiogram dated 03/24/2017 is not possible given technically difficult study., Kathryn Rich MD (Electronically Signed) Final Date: 25 June 2020 16:45 S
[2020-06-25 06:33] LABS: Glucose Point of Care 185 mg/dL (70-110)
[2020-06-25] MEDS: FUROsemide 10 mg/mL SDV 4mL 40 MG IVP ×2 (06:39→17:33)
[2020-06-25 06:48] LABS: Basophils # 0.1 10^3/uL (0.0-0.1); Eosinophils # 0.2 10^3/uL (0.0-0.8); Eosinophils % 2.9 %; Hematocrit 44.7 % (42.0-52.0); Hemoglobin 11.4 g/dL (11.7-16.6); Lymphocytes # 0.7 10^3/uL (0.8-4.8); Lymphocytes % 8.5 %; Mean Corpuscular HGB Conc 25.5 g/dL (30.0-36.0); Mean Corpuscular Hemoglobin 18.4 pg (28.0-34.0); Mean Platelet Volume 10.2 fL (7.4-10.4); Monocytes # 0.8 10^3/uL (0.2-0.9); Monocytes % 9.6 %; Neutrophils # 6.25 10^3/uL (1.8-7.7); Neutrophils % 77.6 %; Nucleated Red Blood Cells % 0.2 %; Platelet Count 189 10^3/cmm (130-400); Red Blood Count 6.21 10^6/uL (4.1-5.3); Red Cell Distribution Width 22.5 % (12.1-15.1)
[2020-06-25 06:51] LABS: Blood Urea Nitrogen 13 mg/dL (8-23); Calcium 9.5 mg/dL (8.5-10.5); Carbon Dioxide 32 mmol/L (22-29); Chloride 98 mmol/L (98-107); Glomerular Filtration Rate 75.2 mL/min (90-130); Glucose 200 mg/dL (65-115); Osmolality Calculated 286 mOsm/kg (285-295); Sodium 137 mmol/L (136-145)
[2020-06-25 06:58] LABS: Magnesium 1.8 mg/dL (1.7-2.3); Phosphorus 3.5 mg/dL (2.5-4.5)
[2020-06-25 06:59] LABS: Chol HDL Ratio 2.83 mg/dL (1.0-5.00); Cholesterol 85 mg/dL (0-200); HDL Cholesterol 30 mg/dL (60-100); LDL Cholesterol Calculated 42 mg/dL (50-129); Triglycerides 67 mg/dL (0-150)
[2020-06-25 07:13] LABS: Estmated Average Glucose 229; Hemoglobin A1C 9.6 % (4.0-6.0); Slide Review Slide Review Perform
[2020-06-25] MEDS: metoprolol succinate ER (24 HR) 100 mg Tablet PO (08:09)
[2020-06-25] MEDS: cetirizine 10 mg Tablet PO (08:09)
[2020-06-25] MEDS: atorvastatin 40 mg Tablet PO (08:09)
[2020-06-25] MEDS: rivaroxaban 10 mg Tablet 20 MG PO (08:09)
[2020-06-25] MEDS: potassium chloride ER 10 mEq Tablet 20 MEQ PO ×2 (08:09→18:24)
[2020-06-25] MEDS: pantoprazole DR 40 mg Tablet PO (08:09)
[2020-06-25] MEDS: lisinopril 10 mg Tablet PO (08:10)
[2020-06-25] MEDS: dicyclomine 10 mg Capsule PO (08:55)
[2020-06-25] MEDS: prednisoLONE 1% Op Susp 5 mL Btl 1 DROP EYE-LEFT ×2 (09:44→18:25)
[2020-06-25] MEDS: bisacodyl 5 mg Tablet 10 MG PO (09:45)
--- NOTE | 2020-06-25 10:56 | PC.CHAP ---
Pastoral Care Encounter/Spiritual Assessment Type of Contact [] Declined sexual abuse counsellor visit [] Patient/Family/Request visit [] Outpatient visit [] Follow-up visit [] Physician referral [] Code/Alert [x] Routine visit [] Staff referral [] Actively dying [x] Patient sleeping [] Family support [] [] Out of room [] Palliative care [] [] Receiving care in room [] Pre-surgical visit [] Trauma [] Long length of stay [] ICU visit [] Other: Relational/Emotional Strength [] Patient feels connected with others/family/visitors/staff [] Distress [] Loneliness/isolation [] Abandonment Spirituality of Patient [] Person of Keisha [] Attends Moravian of their Keisha [] Believes in Prayer [] Reads Bible or Yarsani materials [] There are Spiritual issues to be addressed Medical Records Manager Interventions [x] Prayer [] Active listening [] Non-anxious presence [] Spiritual/emotional support [] Crisis/trauma care [] Spiritual counseling [] Bereavement support [] Provided bereavement packet [] Provided Bible/devotional materials [] Provided toy/stuffed animal, coloring book to patient or family member [] Provided Communion [] Anointing/[place] [] Salvation [] Completed spiritual assessment [] Other: Impact on Illness or Injury [] Angry [] Fearful [] Anxious [] Often cries [] Exhaustion [] Unable to work [] Unable to attend sikhism [] Unable to walk/stand [] Unable to read [] Unable to drive [] Unable to eat/drink [] Unable to sleep [] Unable to be with family [] Patient intubated [] Other: Summary Time spent with patient
--- NOTE | 2020-06-25 11:07 | PC.NURSE ---
IV start Attempted IV start in right AC space without success x1 Attempted with 20G Jelco No bleeding at site at this time Primary care nurse notified of the unsuccessful attempt
[2020-06-25 11:09] LABS: Glucose Point of Care 201 mg/dL (70-110)
--- NOTE | 2020-06-25 14:28 | PC.RESP ---
Pulmonary Rehab information sent to patient.
--- NOTE | 2020-06-25 15:57 | P.PN_ITS ---
Subjective Subjective: Interval history: Compared to yesterday he is feeling better. He had not been wearing his CPAP at home since 06/19 after cataract surgery. Endorses orthopnea. [place] has been needing to sleep on at least several pillows. Vitals/I&O/Wt Last Vital Signs Temp 97.9 F 06/25/20 15:35 Pulse 76 06/25/20 15:35 Resp 18 06/25/20 15:35 BP 114/69 06/25/20 15:35 Pulse Ox 93 06/25/20 15:35 06/25/20 06/25/20 06/25/20 06:59 14:59 22:59 Intake Total 976 / 976 Output Total 400 / 750 1275 / 1275 Balance -400 / -750 -299 / -299 Weight last 48 hrs Weight 151.67 kg Weight 149.685 kg Physical Exam Const: COMMON NORMALS: no acute distress and patient oriented x3 GENERAL APPEARANCE: cooperative and comfortable NUTRITIONAL APPEARANCE: obese HENMT: COMMON NORMALS: oropharynx normal Neck/C-Spine: COMMON NORMALS: no JVD Resp: COMMON NORMALS: normal respiratory effort AUSCULTATION: diminished lung sounds Cardio: COMMON NORMALS: no JVD, regular rhythm, S1 normal heart sound present, S2 normal heart sound present and No murmurs present (Cardio) RHYTHM: regular rhythm HEART SOUNDS: S1 normal heart sound present and S2 normal heart sound present GI: COMMON NORMALS: Normal to inspection, nondistended, normoactive bowel sounds present, Soft to palpation and non-tender PALPATION: Yes Soft to palpation Extremity: COMMON NORMALS: no joint enlargement GENERAL: Yes edema Neuro: COMMON NORMALS: patient oriented x3 and moves all extremities Skin: COMMON NORMALS: no rashes or lesions noted GENERAL SKIN EXAM: no rash es or lesions noted Data : 06/25/20 05:10 06/25/20 05:10 A&P Assessment and plan (1) Acute exacerbation of CHF (congestive heart failure): Continue IV Lasix at this time. He is in negative balance. He reports th at he is feeling better than yesterday. Does endorse orthopnea. Peripheral edema. Follow-up echocardiogram. Previously grade 2 diastolic dysfunction. EF 55%. Study from 2017. Previously known coronary disease and thousand 11, not requiring intervention. Currently without chest pain. Troponin with mild elevation, without peak. EKG with atrial fibrillation, without markers of acute cardiac ischemia. Mild troponin elevation may be secondary to arrhythmia, CHF, hypoxia. Renal function so far is allowing for diuresis. Heart rates with atrial fibrillation for the most part appear to be controlled currently. Appreciate cardiology recommendations with regards to inpatient versus outpatient stress testing. Status: Acute Qualifiers: Heart failure type: diastolic Qualified Code(s): I50.33 - Acute on chronic diastolic (congestive) heart failure (2) Hypoxemia: Multifactorial from CHF, baseline hypoxemia from obesity hypoventilation, recently untreated sleep apnea and possibly impact pulmonary fibrosis/COPD related to former tobacco use. Doing well on 2 L currently. Continue attempt wean oxygen. Was recommended in the past apparently to wear oxygen. May require oxygen on discharge. No evidence of PE on CTA of the chest. COVID negative antigen testing in the emergency room. Status: Acute (3) Atrial fibrillation with RVR: Appreciate cardiology assessment with regards to atrial fibrillation and mexiletine. Continue metoprolol. Heart rates for the most part appear to be controlled, apart from this morning having several episodes of tachycardia. He does not remember whether he was getting up and about at that time, but thinks he was mostly just staying in bed. Continue telemetry monitoring. Has chronic atrial fibrillation that has been treated with beta-blockade and mexiletine in the past Appreciate cardiology recommendations with regards to mexiletine alternatives. Status: Acute (4) Chronic anticoagulation: Cont Xarelto Status: Chronic (5) Hypertension: Some hypertensive episodes last night, but subsequently mostly at goal. Status: Chronic Qualifiers: Hypertension type: other secondary hypertension Qualified Code(s): I15.8 - Other secondary hypertension (6) Obstructive sleep apnea: Appreciate social and political studies professor assistance. He states would like to switch provider company of his CPAP. While recovering from surgery may need full facemask to ensure compliance with CPAP therapy. Reports that he is typically compliant with CPAP but has not been able to wear his mask since his cataract surgery last week Status: Acute (7) Obesity hypoventilation syndrome: As above. Follow-up with PCP with regards to weight loss options. Status: Acute (8) Pulmonary fibrosis determined by high resolution computed tomography: Noted. Consider outpatient assessment by pulmonology. Status: Acute (9) Allergy to alpha-gal: Notated in primary care provider notes that were available within [employer]. He did not mention this but he has been instructed to avoid mammalian products. I am not sure about the details around this. Status: Acute (10) Hypothyroidism: Continue levothyroxine Status: Acute (11) Androgen deficiency: Continue testosterone replacement Status: Acute (12) Diabetes mellitus: Consider discontinuing rosiglitazone given cardiac history. With CHF may have to reevaluate home medications such as Avandia. Continue Jardiance and Ozempic. Consistent carbohydrate diet. Sliding scale insulin. Needs better control. A1c is 9.6. 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 Petty. Currently not polycythemic but that may be in part due to volume overload. He is typically phlebotomized if hematocrit is greater than 53 from what I can gather from Jovanny's notes. Status: Chronic (15) History of cataract surgery: Follow-up with ophthalmology. Had surgery last week on the left with a plan to have cataract surgery in a few weeks on the right. Status: Acute Qualifiers: Laterality: left Qualified Code(s): Z98.42 - Cataract extraction status, left eye Attestations Medical Necessity Statement*: Continue admission for assessment management of CHF, hypoxia in the setting of multiple respiratory chronic illnesses, recently inability to use CPAP following cataract surgery, optimization of medical treatment of atrial fibrillation, and other medical problems as above. Coding Level of Care Code Acute [facility] [employer] Helper for [facility] Fwd Diagnoses Acute exacerbation of CHF (congestive heart failure) I50.33 Heart failure type: diastolic Hypoxemia R09.02 Atrial fibrillation with RVR I48.91 Chronic anticoagulation Z79.01 Hypertension I15.8 Hypertension type: other secondary hypertension Obstructive sleep apnea G47.33 Obesity hypoventilation syndrome E66.2 Pulmonary fibrosis determined by high resolution computed tomography J84.10 Allergy to alpha-gal Z91.018 Hypothyroidism E03.9 Androgen deficiency E29.1 Diabetes mellitus E11.42 Diabetes mellitus type: type 2 Diabetes mellitus superintendent [employer] insulin use: without superintendent [employer] use Diabetes mellitus complication status: with neurologic complications Diabetes mellitus complication detail: with polyneuropathy Hyperlipemia E78.5 Polycythemia D75.1 History of cataract surgery Z98.42 Laterality: left
[2020-06-25 17:07] LABS: Glucose Point of Care 143 mg/dL (70-110)
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
[2020-06-25 20:53] LABS: Glucose Point of Care 184 mg/dL (70-110)
[2020-06-25] MEDS: trazodone 50 mg Tablet PO (21:05)
[2020-06-26] VITALS (7 sets, daily range): BP systolic 106–147; BP diastolic 63–82; PULSE 72–84; RESP 16–19; TEMP 36.4–36.9; O2SAT 92–96
[2020-06-26 03:58] LABS: Basophils # 0.1 10^3/uL (0.0-0.1); Basophils % 0.9 %; Eosinophils # 0.2 10^3/uL (0.0-0.8); Eosinophils % 2.9 %; Hematocrit 45.1 % (42.0-52.0); Hemoglobin 11.6 g/dL (11.7-16.6); Lymphocytes # 0.9 10^3/uL (0.8-4.8); Lymphocytes % 12.5 %; Mean Corpuscular HGB Conc 25.7 g/dL (30.0-36.0); Mean Corpuscular Hemoglobin 18.5 pg (28.0-34.0); Mean Platelet Volume 9.7 fL (7.4-10.4); Monocytes # 0.7 10^3/uL (0.2-0.9); Monocytes % 9.5 %; Neutrophils # 5.52 10^3/uL (1.8-7.7); Neutrophils % 73.7 %; Nucleated Red Blood Cells % 0.3 %; Platelet Count 198 10^3/cmm (130-400); Red Blood Count 6.26 10^6/uL (4.1-5.3); Red Cell Distribution Width 22.9 % (12.1-15.1); White Blood Count 7.5 10^3/uL (4.0-10.0)
[2020-06-26 04:11] LABS: Alanine Aminotransferase 13 U/L (0-41); Albumin Level 3.4 g/dL (3.5-5.2); Alkaline Phosphatase 51 IU/L (40-130); Blood Urea Nitrogen 20 mg/dL (8-23); Calcium 9.1 mg/dL (8.5-10.5); Carbon Dioxide 30 mmol/L (22-29); Chloride 98 mmol/L (98-107); Globulin 2.8 g/dL (1.3-4.6); Glomerular Filtration Rate 75.2 mL/min (90-130); Glucose 175 mg/dL (65-115); Osmolality Calculated 279 mOsm/kg (285-295); Sodium 134 mmol/L (136-145); Total Protein 6.2 g/dL (6.6-8.7)
[2020-06-26 04:24] LABS: Anion Gap 10.7 (5-19); Aspartate Amino Transferase 28 U/L (0-40); Potassium 4.7 mmol/L (3.5-5.1)
[2020-06-26 04:41] LABS: Slide Review Slide Review Perform
[2020-06-26] MEDS: FUROsemide 10 mg/mL SDV 4mL 40 MG IVP (05:47)
[2020-06-26 07:22] LABS: Glucose Point of Care 167 mg/dL (70-110)
[2020-06-26] MEDS: cetirizine 10 mg Tablet PO (08:32)
[2020-06-26] MEDS: bisacodyl 5 mg Tablet 10 MG PO (08:32)
[2020-06-26] MEDS: atorvastatin 40 mg Tablet PO (08:32)
[2020-06-26] MEDS: pantoprazole DR 40 mg Tablet PO (08:32)
[2020-06-26] MEDS: rivaroxaban 10 mg Tablet 20 MG PO (08:33)
[2020-06-26] MEDS: lisinopril 10 mg Tablet PO (08:33)
[2020-06-26] MEDS: potassium chloride ER 10 mEq Tablet 20 MEQ PO (08:34)
[2020-06-26] MEDS: metoprolol succinate ER (24 HR) 100 mg Tablet PO (08:34)
[2020-06-26] MEDS: dicyclomine 10 mg Capsule PO (08:52)
[2020-06-26] MEDS: prednisoLONE 1% Op Susp 5 mL Btl 1 DROP EYE-LEFT ×2 (08:54→18:20)
[2020-06-26 10:52] LABS: Glucose Point of Care 223 mg/dL (70-110)
--- NOTE | 2020-06-26 11:47 | PM.PN ---
Subjective Subjective: Interval history: Patient is feeling better he is less short of breath. He has -1 L out. Echocardiogram suggestive of mildly reduced LV function. Medications: Reviewed: Yes Vitals/I&O/Wt Last Vital Signs Temp 97.8 F 06/26/20 11:27 Pulse 84 06/26/20 11:27 Resp 17 06/26/20 11:27 BP 112/74 06/26/20 11:27 Pulse Ox 94 06/26/20 11:27 06/25/20 06/26/20 06/26/20 22:59 06:59 14:59 Intake Total 270 / 1246 200 / 1446 360 / 360 Output Total 700 / 1975 325 / 2300 625 / 625 Balance -430 / -729 -125 / -854 -265 / -265 Weight last 48 hrs Weight 307 lb 5 oz Weight 334 lb 6 oz Weight 330 lb Physical Exam Narrative: EXAM NARRATIVE: GENERAL: Patient is alert, awake and oriented x3. NECK: No jugular vein distension. HEENT: No cyanosis. No icterus. No pallor. HEART: Regular S1 and S2. No murmur, rub or gallop. LUNGS: Clear to auscultate bilaterally. ABDOMEN: Soft, nontender and nondistended. Positive bowel sounds. No guarding, rebound or tenderness. CENTRAL NERVOUS SYSTEM: Grossly nonfocal. EXTREMITIES: Lower extremities without edema bilaterally. Right groin wound looks good mild bruising no hematoma. Data : 06/26/20 03:09 06/26/20 03:09 A&P Assessment and plan (1) Acute exacerbation of CHF (congestive heart failure): Patient is in acute decompensated diastolic heart failure. He has started diuresing well we will increase IV diuresis with 60 mg of IV Lasix twice daily with a goal to achieve -1 to 1.5 L/day. Continue to reduce salt intake less than 2 g a day. Once euvolemic may require coronary angiogram per worsening of heart failure and history of nonobstructive coronary artery disease including 40% left main few years ago which may have worsen. Echocardiogram showed ejection fraction has mildly reduced 50%. We will schedule patient for left heart catheter tomorrow. I have spoken to the patient he agrees with it. Patient understand all risk benefit and alternative for the procedure. Status: Acute Qualifiers: Heart failure type: diastolic Qualified Code(s): I50.33 - Acute on chronic diastolic (congestive) heart failure (2) Hypertension: Well-controlled. Continue current regimen Status: Chronic Qualifiers: Hypertension type: other secondary hypertension Qualified Code(s): I15.8 - Other secondary hypertension (3) CAD (coronary artery disease): Patient has history of nonobstructive coronary disease including 40% left main 7 years ago. Due to worsening of heart failure shortness of breath may require coronary angiogram. We will proceed with left heart cath tomorrow. We will hold Xarelto he will be n.p.o. after midnight Status: Chronic (4) Atrial fibrillation with RVR: Rate controlled continue medicine but hold Xarelto for cath tomorrow Status: Acute (5) Pulmonary fibrosis determined by high resolution computed tomography: As per medicine. Status: Acute Attestations Medical Necessity Statement*: Patient require continuation hospitalization for above defined care Coding Level of Care Code Established Pt Acute Eight Arm Operator for Chg Fwd Patient Type Established History Detailed Exam Detailed Medical Decision Making Moderate Complexity Diagnoses Acute exacerbation of CHF (congestive heart failure) I50.33 Heart failure type: diastolic Hypertension I15.8 Hypertension type: other secondary hypertension CAD (coronary artery disease) I25.10 Atrial fibrillation with RVR I48.91 Pulmonary fibrosis determined by high resolution computed tomography J84.10
--- NOTE | 2020-06-26 13:17 | PM.PN ---
Subjective Subjective: Interval history: Overall he is improving. He is subjectively noticing that he has been losing quite a bit of water weight, especially around his pelvis/lower abdomen. He reports that he does occasionally urinate without output being recorded leg during a bowel movement, or when he went in the shower. He tolerated CPAP mask overnight. He reports that he did well with that. He denies chest pain or pressure. He has been adhering to fluid restriction. Vitals/I&O/Wt Last Vital Signs Temp 97.8 F 06/26/20 11:27 Pulse 84 06/26/20 11:27 Resp 17 06/26/20 11:27 BP 112/74 06/26/20 11:27 Pulse Ox 94 06/26/20 11:27 06/25/20 06/26/20 06/26/20 22:59 06:59 14:59 Intake Total 270 / 1246 200 / 1446 360 / 360 Output Total 700 / 1975 325 / 2300 625 / 625 Balance -430 / -729 -125 / -854 -265 / -265 Weight last 48 hrs Weight 139.395 kg Weight 151.67 kg Weight 149.685 kg Physical Exam Const: COMMON NORMALS: no acute distress and patient oriented x3 GENERAL APPEARANCE: cooperative and comfortable NUTRITIONAL APPEARANCE: obese OTHER: He is sitting up in chair. He is comfortable. He is in good spirits today. Happy with his improvement. HENMT: COMMON NORMALS: oropharynx normal Neck/C-Spine: COMMON NORMALS: no JVD Resp: COMMON NORMALS: normal respiratory effort AUSCULTATION: diminished lung sounds Cardio: COMMON NORMALS: no JVD, regular rhythm, S1 normal heart sound present, S2 normal heart sound present and No murmurs present (Cardio) RHYTHM: regular rhythm HEART SOUNDS: S1 normal heart sound present and S2 normal heart sound present GI: COMMON NORMALS: Normal to inspection, nondistended, normoactive bowel sounds present, Soft to palpation and non-tender PALPATION: Yes Soft to palpation Extremity: COMMON NORMALS: no joint enlargement GENERAL: Yes edema (1+) Neuro: COMMON NORMALS: patient oriented x3 and moves all extremities Skin: COMMON NORMALS: no rashes or lesions noted GENERAL SKIN EXAM: no rashes or lesions noted Data : 06/26/20 03:09 06/26/20 03:09 A&P Assessment and plan (1) Acute exacerbation of CHF (congestive heart failure): This is gradually improving. -800 mL over 24 hours, however, does report some unrecorded output. We did increase Lasix up to 60 mg IV as per cardiology recommendations. He is happy subjectively appears to be improving, losing water weight. He did tolerate CPAP overnight, and so hopefully should be able to continue this at home. He is working with discharge planners to see about switching providing company. Continue Lasix. Continue monitoring of intake and output. Due to prior known coronary disease, CHF, he is planned for coronary geography to exclude coronary artery disease progression as the contributing factor in his CHF. Echocardiogram with somewhat decreased ejection fraction, worse than prior at 45-50%. Technically difficult study. Previously grade 2 diastolic dysfunction. EF 55%. Study from 2017. Previously known coronary disease 2010, not requiring intervention. Currently without chest pain. Troponin with mild elevation, without peak. EKG with atrial fibrillation, without markers of acute cardiac ischemia. Mild troponin elevation may be secondary to arrhythmia, CHF, hypoxia. Renal function so far is allowing for diuresis. Heart rates with atrial fibrillation for the most part appear to be controlled currently. Appreciate cardiology recommendations. Status: Acute Qualifiers: Heart failure type: diastolic Qualified Code(s): I50.33 - Acute on chronic diastolic (congestive) heart failure (2) Hypoxemia: Improving. Multifactorial from CHF, baseline hypoxemia from obesity hypoventilation, recently untreated sleep apnea and possibly impact pulmonary fibrosis/COPD related to former tobacco use. He did tolerate CPAP overnight. Subjectively is feeling better. Evaluation for home oxygen on discharge. No evidence of PE on CTA of the chest. COVID negative antigen testing in the emergency room. Status: Acute (3) Atrial fibrillation with RVR: Appreciate cardiology assessment with regards to atrial fibrillation and mexiletine. Continue metoprolol. Heart rates for the most part appear to be controlled, apart from this morning having several episodes of tachycardia. He does not remember whether he was getting up and about at that time, but thinks he was mostly just staying in bed. Continue telemetry monitoring. Status: Acute (4) Chronic anticoagulation: Cont Xarelto. Currently held for coronary angiogram. Resume after it is safe. Status: Chronic (5) Hypertension: Some hypertensive episodes last night, but subsequently mostly at goal. Status: Chronic Qualifiers: Hypertension type: other secondary hypertension Qualified Code(s): I15.8 - Other secondary hypertension (6) Obstructive sleep apnea: Appreciate social service liaison assistance with CPAP provider company as he has been wanting to switch providers. Continue CPAP at home. Tolerated CPAP last night. Reports that he is typically compliant with CPAP but has not been able to wear his mask since his cataract surgery last week Status: Acute (7) Obesity hypoventilation syndrome: As above. Follow-up with PCP with regards to weight loss options. Status: Acute (8) Pulmonary fibrosis determined by high resolution computed tomography: Noted. Consider outpatient assessment by pulmonology. Status: Acute (9) Allergy to alpha-gal: Notated in primary care provider notes that were available within [facility]. Discussed this with him, he reports he kept having upset stomach, and so blood work was sent for allergy testing among other work-up, and was found to have allergy to beef products. Says that he has cut those out of his diet and has had no further issues. Status: Acute (10) Hypothyroidism: Continue levothyroxine Status: Acute (11) Androgen deficiency: Continue testosterone replacement Status: Acute (12) Diabetes mellitus: Consider discontinuing rosiglitazone given cardiac history. With CHF may have to reevaluate home medications such as Avandia. Continue Jardiance and Ozempic. Consistent carbohydrate diet. Sliding scale insulin. Needs better control. A1c is 9.6. Status: Chronic Qualifiers: Diabetes mellitus complication detail: with polyneuropathy Diabetes mellitus complication status: with neurologic complications Diabetes mellitus senior care insulin use: without terminal worker use Diabetes mellitus type: type 2 Qualified Code(s): E11.42 - Type 2 diabetes mellitus with diabetic polyneuropathy (13) Hyperlipemia: Continue statin Status: Chronic (14) Polycythemia: Continue follow-up with Dr. Petty. Currently not polycythemic but that may be in part due to volume overload. He is typically phlebotomized if hematocrit is greater than 53 from what I can gather from Jovanny's notes. Status: Chronic (15) History of cataract surgery: Follow-up with ophthalmology. Had surgery last week on the left with a plan to have cataract surgery in a few weeks on the right. Status: Acute Qualifiers: Laterality: left Qualified Code(s): Z98.42 - Cataract extraction status, left eye Attestations Medical Necessity Statement*: Continue admission for assessment of management of congestive heart failure with progression and exacerbation, coronary artery disease, and optimization of medical therapy for atrial fibrillation with RVR, in the setting of multiple respiratory problems including SHEYLA, and not tolerating CPAP at home. Coding Level of Care Code Acute Bank Operations Officer for Chg Fwd Exam Comprehensive Diagnoses Acute exacerbation of CHF (congestive heart failure) I50.33 Heart failure type: diastolic Hypoxemia R09.02 Atrial fibrillation with RVR I48.91 Chronic anticoagulation Z79.01 Hypertension I15.8 Hypertension type: other secondary hypertension Obstructive sleep apnea G47.33 Obesity hypoventilation syndrome E66.2 Pulmonary fibrosis determined by high resolution computed tomography J84.10 Allergy to alpha-gal Z91.018 Hypothyroidism E03.9 Androgen deficiency E29.1 Diabetes mellitus E11.42 Diabetes mellitus complication detail: with polyneuropathy Diabetes mellitus complication status: with neurologic complications Diabetes mellitus senior care insulin use: without senior care use Diabetes mellitus type: type 2 Hyperlipemia E78.5 Polycythemia D75.1 History of cataract surgery Z98.42 Laterality: left
[2020-06-26] MEDS: FUROsemide 10 mg/mL SDV 10mL 60 MG IVP (16:10)
[2020-06-26 16:56] LABS: Glucose Point of Care 141 mg/dL (70-110)
[2020-06-26] MEDS: potassium chloride ER 10 mEq Tablet 30 MEQ PO (18:17)
[2020-06-26 21:00] LABS: Glucose Point of Care 167 mg/dL (70-110)
[2020-06-26] MEDS: trazodone 50 mg Tablet PO (22:03)
[2020-06-27] VITALS (24 sets, daily range): BP systolic 97–152; BP diastolic 55–89; PULSE 56–81; RESP 13–26; TEMP 36.4–36.5; O2SAT 85–98
[2020-06-27 04:04] LABS: Basophils # 0.1 10^3/uL (0.0-0.1); Eosinophils # 0.2 10^3/uL (0.0-0.8); Eosinophils % 2.6 %; Hematocrit 46.4 % (42.0-52.0); Hemoglobin 11.9 g/dL (11.7-16.6); Lymphocytes # 1.1 10^3/uL (0.8-4.8); Lymphocytes % 13.5 %; Mean Corpuscular HGB Conc 25.6 g/dL (30.0-36.0); Mean Corpuscular Hemoglobin 18.3 pg (28.0-34.0); Mean Corpuscular Volume 71.4 fL (80-94); Mean Platelet Volume 9.8 fL (7.4-10.4); Monocytes # 0.9 10^3/uL (0.2-0.9); Monocytes % 10.2 %; Neutrophils # 6.05 10^3/uL (1.8-7.7); Neutrophils % 72.2 %; Nucleated Red Blood Cells % 0.4 %; Platelet Count 207 10^3/cmm (130-400); Red Cell Distribution Width 22.9 % (12.1-15.1); White Blood Count 8.4 10^3/uL (4.0-10.0)
[2020-06-27 04:28] LABS: Alanine Aminotransferase 14 U/L (0-41); Albumin Level 3.9 g/dL (3.5-5.2); Alkaline Phosphatase 49 IU/L (40-130); Anion Gap 9.3 (5-19); Aspartate Amino Transferase 18 U/L (0-40); Blood Urea Nitrogen 25 mg/dL (8-23); Calcium 8.9 mg/dL (8.5-10.5); Carbon Dioxide 33 mmol/L (22-29); Chloride 97 mmol/L (98-107); Glomerular Filtration Rate 75.2 mL/min (90-130); Glucose 173 mg/dL (65-115); Osmolality Calculated 281 mOsm/kg (285-295); Potassium 4.3 mmol/L (3.5-5.1); Sodium 135 mmol/L (136-145); Total Bilirubin 1.1 mg/dL (0.15-1.2); Total Protein 6.9 g/dL (6.6-8.7)
[2020-06-27] MEDS: FUROsemide 10 mg/mL SDV 10mL 60 MG IVP ×2 (04:46→17:44)
[2020-06-27 05:06] LABS: Slide Review Slide Review Perform
[2020-06-27 06:47] LABS: Glucose Point of Care 153 mg/dL (70-110)
--- NOTE | 2020-06-27 08:25 | PC.SOCIAL ---
IMM Page 2 of IMM explained to and signed by patient. Initialed, dated, and timed and placed in chart. Copy provided to patient.
[2020-06-27] MEDS: dicyclomine 10 mg Capsule PO (08:47)
[2020-06-27] MEDS: pantoprazole DR 40 mg Tablet PO (08:47)
[2020-06-27] MEDS: cetirizine 10 mg Tablet PO (08:47)
[2020-06-27] MEDS: atorvastatin 40 mg Tablet PO (08:47)
[2020-06-27] MEDS: metoprolol succinate ER (24 HR) 100 mg Tablet PO (08:48)
[2020-06-27] MEDS: prednisoLONE 1% Op Susp 5 mL Btl 1 DROP EYE-LEFT (08:48)
[2020-06-27] MEDS: sodium chloride 0.9% 1,000 ML 50 ML IV (08:48)
[2020-06-27] MEDS: lisinopril 10 mg Tablet PO (08:48)
[2020-06-27] MEDS: potassium chloride ER 10 mEq Tablet 30 MEQ PO ×2 (08:48→17:45)
[2020-06-27] MEDS: diphenhydrAMINE 50 mg Capsule PO (10:58)
[2020-06-27 11:01] LABS: Glucose Point of Care 156 mg/dL (70-110)
--- NOTE | 2020-06-27 11:45 | XACV_ITS ---
Exam Room: [facility] Ht: 180 cm Wt: 142 kg BSA: 2.73 m2 Gender: Male : 1955 Any Known Allergies: Other Exam Priority: Routine Procedure(s): Procedure Description: Diagnostic procedure Procedure Description: Left Heart Catheterization Diagnostic Cath Status: Elective Diagnostic Findings LM has 0% stenosis. LAD has 0% stenosis. CX has 0% stenosis. RCA has 0% stenosis. 1st Diag: Mild 30% stenosis, ELIDIA: 3 flow. Coronary angiography shows co-dominance. Conclusions No significant disease noted in the Left Main, LAD, Circumflex, or RCA coronary arteries. Indication: New onset of heart failure /worsening of her heart failure/decompensated heart failure. Recommendations Continue current medical management and risk factor modification. Diagnostic RX Recommendation: medical therapy and/or counseling Pressures Phase:Rest AO : 115 mmHg / 65 mmHg ( 80 mmHg ) @ 7:28:00 AM LV : 112 mmHg / 56 mmHg / @ 7:28:00 AM Clinical Evaluation EBL: 5mL-10mL Procedural Details Procedure Consent Obtained. Admit Source: In Patient. Pre-Procedure Time Out. Identified patient by full name and date of as verbalized by the patient/guarantor. Does the consent match the physician's order: Yes. Accurate & Complete Informed Consent: Yes. Inpatient/Outpatient History & Physical on Chart: Yes. If H&P is completed, is and addenduem needed: No; If yes, is the addendum complete: N /A. Visualize and Verify Site with Patient/Guarantor: N/A. Relevant Radiology Images available: N/A. Pre-op teaching completed and patient verbalized understanding. The risks, benefits, and alternatives of sedation and/or procedure were discussed by physician. The patient agrees to continue. Procedure started. Correct patient, site and procedure confirmed by cath team. PERRLA. Strong, equal hand picker/puller bilaterally. Lungs clear x 5 lobes. IV Site on Arrival: 20 gauge in the left wrist. Oxygen started at 2liters/min via nasal canula. bilateral groins was prepped with chloroprep then draped in the usual sterile fashion. right radial was prepped with chloroprep then draped in the usual sterile fashion. Physician notified. Baseline sample Acquired. HR: 60 BPM. Physician arrived. Physician scrubbed in. Immediate Pre-Procedure Time Out. Correct Patient: Yes; Correct Procedure: Yes; Correct Site: Yes; Correct Patient Position: Yes; Correct Supplies: Yes; Dried Flammable Prep: Yes; Blood Products Available: N/A;. Lidocaine 1% infiltrated to the right radial. Arterial access obtained with micropuncture set. A 5 libyan TIG catheter in over wire. Catheter out. EDP Sample taken: LV 112/56,51; HR: 66 BPM; SpO2: 91%. Pullback taken: LV Off; AO Off; Mean: , Peak to Peak: , SEP: ; HR: 67 BPM; SpO2: 92%. Multiple views taken of left coronary artery. Catheter redirected to the RCA. Multiple views taken of right coronary artery. TR band placed. Hemostasis obtained. Post Procedure: Pulses reassessed and unchanged. PERRLA. Strong, equal hand picker/puller bilaterally. No VTE prophylaxis required. Total IV fluids: 20 mL. Contrast type used: Omnipaque 300 mgI/mL, 500 mL bottle. Contrast Material : Omnipaque 53 ml. Medication's Wasted: Lidocaine 1% = 18 mL. Medication's Wasted: Nitro = 49.8 mg. Medication's Wasted: Heparin = 1000 units. Medication's Wasted: Other = versed 1 mg. Medication's Wasted: Other = fentanyl 50 mg. [facility] Clinical Fraility Score: 3: Managing Well. Kayaking Instructor Indications: Cardiomyopathy. Kayaking Instructor Indications: LV Dysfunction. Chest Pain Symptom Assessment: Atypical Angina. Cardiovascular Instability: no. Post-op diagnosis: non obstructive CAD. Complications: none. A TR Band was successful obtaining hemostatsis at the Right Radial artery insertion site. Estimated blood loss: 5mL-10mL. Procedure completed. Patient transferred by bed to ICU. Vital chart was stopped. Site: Right Radial artery Sheath Size: 6 Fr Hemostasis Method: TR Band Hemostasis Success: Successful Procedure Medications Start: 12:12 PM Stop: 12:12 PM Medication: Versed Amount: 1 mg Route: I.V. Start: 12:12 PM Stop: 12:12 PM Medication: Fentanyl Amount: 50 mcg Route: I.V. Start: 12:24 PM Stop: 12:24 PM Medication: Nitrogylcerin Amount: 200 mcg Route: I.A. Start: 12:29 PM Stop: 12:29 PM Medication: Heparin Amount: 5000 units Route: I.V. I, the attending physician, have reviewed and verified all procedure medications. Yes, all medications given per verbal order History/Risk Factors Hypertension: Yes Dyslipidemia: No Diabetic Therapy: Insulin Peripheral Arterial Disease (PAD): No Myocardial Infarction (AR): No Obesity: No Renal Disease: No Tobacco Use: Former Prior Interventions PCI: No CABG: No Valve Surgery: No Report Signatures Finalized by:Davin Elena MD on 07/12/2020 2:14:30 PM
--- NOTE | 2020-06-27 12:03 | PC.NURSE ---
pt left unit to go to wood preserving plant laborer at 1203
[2020-06-27 17:29] LABS: Glucose Point of Care 224 mg/dL (70-110)
--- NOTE | 2020-06-27 18:49 | P.PN_ITS ---
Subjective Subjective: Interval history: S/p coronary angiography, he states he is doing well. Denies any chest pain or pressure. Reports overall he has been improving. He is currently monitored in ICU, heart rates on the slow side in the 50s, occasional 2-second pauses on the monitor. He denies any symptoms. Vitals/I&O/Wt Last Vital Signs Temp 97.7 F 06/27/20 11:01 Pulse 59 L 06/27/20 15:48 Resp 18 06/27/20 15:48 BP 118/68 06/27/20 15:48 Pulse Ox 96 06/27/20 15:48 06/27/20 06/27/20 06/27/20 06:59 14:59 22:59 Intake Total 480 / 1680 360 / 360 Output Total 900 / 3475 2150 / 2150 Balance -420 / -1795 -2150 / -2150 360 / -1790 Weight last 48 hrs Weight 142.059 kg Weight 139.395 kg Physical Exam Const: COMMON NORMALS: no acute distress and patient oriented x3 GENERAL APPEARANCE: cooperative and comfortable NUTRITIONAL APPEARANCE: obese OTHER: Reclined in bed. Comfortable. HENMT: COMMON NORMALS: oropharynx normal Neck/C-Spine: COMMON NORMALS: no JVD Resp: COMMON NORMALS: normal respiratory effort AUSCULTATION: diminished lung sounds (But with improvement) Cardio: COMMON NORMALS: no JVD, regular rhythm, S1 normal heart sound present, S2 normal heart sound present and No murmurs present (Cardio) RHYTHM: regular rhythm HEART SOUNDS: S1 normal heart sound present and S2 normal heart sound present GI: COMMON NORMALS: Normal to inspection, nondistended, normoactive bowel sounds present, Soft to palpation and non-tender PALPATION: Yes Soft to palpation Extremity: COMMON NORMALS: no joint enlargement GENERAL: Yes edema (1+) Neuro: COMMON NORMALS: patient oriented x3 and moves all extremities Skin: COMMON NORMALS: no rashes or lesions noted GENERAL SKIN EXAM: no rashes or lesions noted Data : 06/27/20 03:47 06/27/20 03:47 A&P Assessment and plan (1) Bradycardia: Monitor heart rates. Currently in the 50s. Noted some recurrent 2-second pauses on telemetry. He is not symptomatic. Blood pressure is holding well. Discussed with cardiology, will decrease metoprolol dose down to 25 mg daily. Monitor on telemetry. No obstructive coronary disease noted on coronary angiogram. TSH Status: Acute (2) Acute exacerbation of CHF (congestive heart failure): He is responding well to diuresis. Weight appears to be coming down, although this is somewhat variable, not sure how reliable the measurements are. Decreasing edema. Subjectively he is feeling better. Less orthopnea. Monitor NONA, renal function. Coronary angiography today without obstructive CAD. He did tolerate CPAP so far, and so hopefully should be able to continue this at home. He is working with discharge planners to see about switching providing company. Continue Lasix. Continue monitoring of intake and output. Due to prior known coronary disease, CHF, he is planned for coronary geography to exclude coronary artery disease progression as the contributing factor in his CHF. Echocardiogram with somewhat decreased ejection fraction, worse than prior at 45-50%. Technically difficult study. Previously grade 2 diastolic dysfunction. EF 55%. Study from 2017. Previously known coronary disease 2010, not requiring intervention. Currently without chest pain. Troponin with mild elevation, without peak. EKG with atrial fibrillation, without markers of acute cardiac ischemia. Mild troponin elevation may be secondary to arrhythmia, CHF, hypoxia. Renal function so far is allowing for diuresis. Heart rates with atrial fibrillation for the most part appear to be controlled currently. Appreciate cardiology recommendations. Status: Acute Qualifiers: Heart failure type: diastolic Qualified Code(s): I50.33 - Acute on chronic diastolic (congestive) heart failure (3) Hypoxemia: Improving. Currently is down to room air at rest. Multifactorial from CHF, baseline hypoxemia from obesity hypoventilation, recently untreated sleep apnea and possibly impact pulmonary fibrosis/COPD related to former tobacco use. He did tolerate CPAP overnight. Subjectively is feeling better. Evaluation for home oxygen on discharge. No evidence of PE on CTA of the chest. COVID negative antigen testing in the emergency room. Status: Acute (4) Atrial fibrillation with RVR: For now metoprolol dose decreased down to 25 mg due to bradycardia. Pauses. Some of this may be related to sedation medications. Monitor. Appreciate cardiology assessment with regards to atrial fibrillation and mexiletine. Continue metoprolol. Heart rates for the most part appear to be controlled, apart from this morning having several episodes of tachycardia. He does not remember whether he was getting up and about at that time, but thinks he was mostly just staying in bed. Continue telemetry monitoring. Status: Acute (5) Chronic anticoagulation: Per discussion with cardiology safe to resume Xarelto. Status: Chronic (6) Hypertension: Some hypertensive episodes last night, but subsequently mostly at goal. Status: Chronic Qualifiers: Hypertension type: other secondary hypertension Qualified Code(s): I15.8 - Other secondary hypertension (7) Obstructive sleep apnea: Appreciate older adult social work specialist assistance with CPAP provider company as he has been wanting to switch providers. Continue CPAP at home. Tolerated CPAP so far. Reports that he is typically compliant with CPAP but has not been able to wear his mask since his cataract surgery last week Status: Acute (8) Obesity hypoventilation syndrome: As above. Follow-up with PCP with regards to weight loss options. Status: Acute (9) Pulmonary fibrosis determined by high resolution computed tomography: Noted. Consider outpatient assessment by pulmonology. Status: Acute (10) Allergy to alpha-gal: Notated in primary care provider notes that were available within [facility]. Discussed this with him, he reports he kept having upset stomach, and so blood work was sent for allergy testing among other work-up, and was found to have allergy to beef products. Says that he has cut those out of his diet and has had no further issues. Status: Acute (11) Hypothyroidism: Continue levothyroxine Status: Acute (12) Androgen deficiency: Continue testosterone replacement Status: Acute (13) Diabetes mellitus: Consider discontinuing rosiglitazone given cardiac history. With CHF may have to reevaluate home medications such as Avandia. Continue Jardiance and Ozempic. Consistent carbohydrate diet. Sliding scale insulin. Needs better control. A1c is 9.6. Status: Chronic Qualifiers: Diabetes mellitus complication detail: with polyneuropathy Diabetes mellitus complication status: with neurologic complications Diabetes mellitus termination clerk insulin use: without senior care use Diabetes mellitus type: type 2 Qualified Code(s): E11.42 - Type 2 diabetes mellitus with diabetic polyneuropathy (14) Hyperlipemia: Continue statin Status: Chronic (15) Polycythemia: Continue follow-up with Dr. Petty. Currently not polycythemic but that may be in part due to volume overload. He is typically phlebotomized if hematocrit is greater than 53 from what I can gather from Jovanny's notes. Status: Chronic (16) History of cataract surgery: Follow-up with ophthalmology. Had surgery last week on the left with a plan to have cataract surgery in a few weeks on the right. Status: Acute Qualifiers: Laterality: left Qualified Code(s): Z98.42 - Cataract extraction status, left eye Attestations Medical Necessity Statement*: Continue admission for assessment management of CHF exacerbation, optimization of medical treatment of atrial fibrillation, assessment and monitoring of bradycardia, pauses. Coding Level of Care Code Acute Oracle Database Manager for g Fwd Exam Comprehensive Diagnoses Bradycardia R00.1 Acute exacerbation of CHF (congestive heart failure) I50.33 Heart failure type: diastolic Hypoxemia R09.02 Atrial fibrillation with RVR I48.91 Chronic anticoagulation Z79.01 Hypertension I15.8 Hypertension type: other secondary hypertension Obstructive sleep apnea G47.33 Obesity hypoventilation syndrome E66.2 Pulmonary fibrosis determined by high resolution computed tomography J84.10 Allergy to alpha-gal Z91.018 Hypothyroidism E03.9 Androgen deficiency E29.1 Diabetes mellitus E11.42 Diabetes mellitus complication detail: with polyneuropathy Diabetes mellitus complication status: with neurologic complications Diabetes mellitus termination clerk insulin use: without senior care use Diabetes mellitus type: type 2 Hyperlipemia E78.5 Polycythemia D75.1 History of cataract surgery Z98.42 Laterality: left
--- NOTE | 2020-06-27 19:02 | PC.NURSE ---
RECEIVED PT FROM BRAKE LINING MAKER S/P RIGHT RADIAL. NO HEMATOMA, 16ML IN BAND. C/O HAND BEING NUMB 1ML AIR REMOVED. UP TO BSC. TOLERATED WELL. PLEASANT & TALKATIVE.
[2020-06-27 20:07] LABS: Thyroid Stimulating Hormone 1.79 uIU/mL (0.27-4.20)
--- NOTE | 2020-06-27 20:15 | PM.PN ---
Subjective Subjective: Interval history: Patient is status post coronary angiogram did not show any significant obstructive disease. Medications: Reviewed: Yes Vitals/I&O/Wt Last Vital Signs Temp 97.7 F 06/27/20 11:01 Pulse 67 06/27/20 18:50 Resp 16 06/27/20 18:50 BP 135/89 06/27/20 18:50 Pulse Ox 96 06/27/20 18:50 06/27/20 06/27/20 06/27/20 06:59 14:59 22:59 Intake Total 480 / 1680 360 / 360 Output Total 900 / 3475 2150 / 2150 Balance -420 / -1795 -2150 / -2150 360 / -1790 Weight last 48 hrs Weight 313 lb 3 oz Weight 307 lb 5 oz Physical Exam Narrative: EXAM NARRATIVE: GENERAL: Patient is alert, awake and oriented x3. NECK: No jugular vein distension. HEENT: No cyanosis. No icterus. No pallor. HEART: Regular S1 and S2. No murmur, rub or gallop. LUNGS: Clear to auscultate bilaterally. ABDOMEN: Soft, nontender and nondistended. Positive bowel sounds. No guarding, rebound or tenderness. CENTRAL NERVOUS SYSTEM: Grossly nonfocal. EXTREMITIES: Lower extremities without edema bilaterally. Right groin wound looks good mild bruising no hematoma. Data : 06/27/20 03:47 06/27/20 03:47 A&P Assessment and plan (1) Acute exacerbation of CHF (congestive heart failure): Appear to be euvolemic now. We will switch him from tomorrow with p.o. Lasix 40 mg in the morning and 20 mg at 1400 along with 20 mEq of potassium will. Today he underwent coronary angiogram which showed no significant coronary artery disease most likely CHF is from nonischemic cardiomyopathy Status: Acute Qualifiers: Heart failure type: diastolic Qualified Code(s): I50.33 - Acute on chronic diastolic (congestive) heart failure (2) Hypertension: Well-controlled. Continue current regimen Status: Chronic Qualifiers: Hypertension type: other secondary hypertension Qualified Code(s): I15.8 - Other secondary hypertension (3) CAD (coronary artery disease): Today patient underwent coronary angiogram did not show any significant coronary artery disease. His cardiomyopathy is nonischemic Status: Chronic (4) Atrial fibrillation with RVR: Rate controlled continue medicine but hold Xarelto for cath tomorrow Status: Acute (5) Pulmonary fibrosis determined by high resolution computed tomography: As per medicine. Status: Acute (6) Bradycardia: Intermittent 2-second multiple pauses. We will reduce metoprolol to 25 mg from 100 mg in the morning. Status: Acute Attestations Medical Necessity Statement*: Patient require continuation hospitalization for above defined care Coding Level of Care Code Established Pt Acute Open Hearth Door Liner for Chg Fwd Patient Type Established History Expanded Problem Focused Exam Expanded Problem Focused Medical Decision Making Moderate Complexity Diagnoses Acute exacerbation of CHF (congestive heart failure) I50.33 Heart failure type: diastolic Hypertension I15.8 Hypertension type: other secondary hypertension CAD (coronary artery disease) I25.10 Atrial fibrillation with RVR I48.91 Pulmonary fibrosis determined by high resolution computed tomography J84.10 Bradycardia R00.1
[2020-06-27] MEDS: trazodone 50 mg Tablet PO (20:56)
[2020-06-28] VITALS (15 sets, daily range): BP systolic 100–148; BP diastolic 52–86; PULSE 58–80; RESP 15–28; TEMP 36.3–36.8; O2SAT 87–98
[2020-06-28 01:41] LABS: Glucose Point of Care 144 mg/dL (70-110)
[2020-06-28] MEDS: FUROsemide 10 mg/mL SDV 10mL 60 MG IVP (03:40)
[2020-06-28 04:54] LABS: Basophils # 0.1 10^3/uL (0.0-0.1); Eosinophils # 0.2 10^3/uL (0.0-0.8); Eosinophils % 2.6 %; Hematocrit 47.1 % (42.0-52.0); Lymphocytes # 0.9 10^3/uL (0.8-4.8); Lymphocytes % 12.9 %; Mean Corpuscular HGB Conc 25.5 g/dL (30.0-36.0); Mean Corpuscular Hemoglobin 18.2 pg (28.0-34.0); Mean Corpuscular Volume 71.4 fL (80-94); Monocytes # 0.7 10^3/uL (0.2-0.9); Monocytes % 10.3 %; Neutrophils # 5.24 10^3/uL (1.8-7.7); Neutrophils % 72.8 %; Nucleated Red Blood Cells % 0 %; Platelet Count 179 10^3/cmm (130-400); Red Cell Distribution Width 22.8 % (12.1-15.1); White Blood Count 7.2 10^3/uL (4.0-10.0)
[2020-06-28 05:07] LABS: Alanine Aminotransferase 16 U/L (0-41); Albumin Level 3.8 g/dL (3.5-5.2); Alkaline Phosphatase 54 IU/L (40-130); Anion Gap 12.5 (5-19); Aspartate Amino Transferase 24 U/L (0-40); Blood Urea Nitrogen 25 mg/dL (8-23); Calcium 8.8 mg/dL (8.5-10.5); Carbon Dioxide 32 mmol/L (22-29); Chloride 97 mmol/L (98-107); Globulin 3.1 g/dL (1.3-4.6); Glucose 149 mg/dL (65-115); Osmolality Calculated 284 mOsm/kg (285-295); Potassium 4.5 mmol/L (3.5-5.1); Sodium 137 mmol/L (136-145); Total Bilirubin 1.3 mg/dL (0.15-1.2); Total Protein 6.9 g/dL (6.6-8.7)
--- NOTE | 2020-06-28 07:41 | PC.NURSE ---
up in room am brk served at this time wrist area no edema noted at this time
[2020-06-28] MEDS: FUROsemide 40 mg Tablet PO (09:12)
[2020-06-28] MEDS: atorvastatin 40 mg Tablet PO (09:12)
[2020-06-28] MEDS: cetirizine 10 mg Tablet PO (09:12)
[2020-06-28] MEDS: potassium chloride ER 10 mEq Tablet 30 MEQ PO ×2 (09:12→17:26)
[2020-06-28] MEDS: pantoprazole DR 40 mg Tablet PO (09:12)
[2020-06-28] MEDS: rivaroxaban 10 mg Tablet 20 MG PO (09:12)
[2020-06-28] MEDS: lisinopril 10 mg Tablet PO (09:12)
[2020-06-28] MEDS: prednisoLONE 1% Op Susp 5 mL Btl 1 DROP EYE-LEFT ×2 (09:13→17:27)
--- NOTE | 2020-06-28 10:40 | PC.NURSE ---
transfer to room 107 at this time no distress
--- NOTE | 2020-06-28 11:11 | PM.PN ---
Subjective Subjective: Interval history: Patient had shoulder today's feeling much better. He is not short of breath. He had few 1.5 to 2-second pauses but mostly have seen it from during sleep. He has a history of obstructive sleep apnea not using CPAP. Medications: Reviewed: Yes Vitals/I&O/Wt Last Vital Signs Temp 97.3 F L 06/28/20 10:27 Pulse 72 06/28/20 10:27 Resp 26 H 06/28/20 10:27 BP 126/64 06/28/20 10:27 Pulse Ox 98 06/28/20 10:27 06/27/20 06/28/20 06/28/20 22:59 06:59 14:59 Intake Total 360 / 360 400 / 400 Balance 360 / -1790 400 / 400 Weight last 48 hrs Weight 313 lb 3 oz Physical Exam Narrative: EXAM NARRATIVE: GENERAL: Patient is alert, awake and oriented x3. NECK: No jugular vein distension. HEENT: No cyanosis. No icterus. No pallor. HEART: Irregularly irregular S1 and S2. No murmur, rub or gallop. LUNGS: Clear to auscultate bilaterally. ABDOMEN: Soft, nontender and nondistended. Positive bowel sounds. No guarding, rebound or tenderness. CENTRAL NERVOUS SYSTEM: Grossly nonfocal. EXTREMITIES: Lower extremities without edema bilaterally. Data : 06/28/20 04:15 06/28/20 04:15 A&P Assessment and plan (1) Acute exacerbation of CHF (congestive heart failure): Patient is euvolemic now. He will be switched to p.o. Lasix 40 mg in the morning and 20 mg at 1400 along with 20 mEq of potassium will. Today he underwent coronary angiogram which showed no significant coronary artery disease most likely CHF is from nonischemic cardiomyopathy. I will discontinue metoprolol and start him on carvedilol 3.125 mg Status: Acute Qualifiers: Heart failure type: diastolic Qualified Code(s): I50.33 - Acute on chronic diastolic (congestive) heart failure (2) Hypertension: Well-controlled. Continue current regimen Status: Chronic Qualifiers: Hypertension type: other secondary hypertension Qualified Code(s): I15.8 - Other secondary hypertension (3) CAD (coronary artery disease): Patient does not have significant coronary artery disease . There is no significant eft main disease except luminal irregularity Status: Chronic (4) Pulmonary fibrosis determined by high resolution computed tomography: Treated as per medicine. Status: Acute (5) Bradycardia: Patient has intermittent 2-second pauses with bradycardia mostly when he is sleep or dozing off. He has history of obstructive sleep apnea he is not using CPAP. Recommend going back to CPAP and sleep study as an outpatient since it has been 7 and 8-year he used his machine. He is told me that was broken and he has never went back to it. Instead of metoprolol 100 mg we have dropped down the dose of beta-zachary and change it to Coreg 3.125 mg for his cardiomyopathy. He will be given event monitor upon discharge for 21 days he can pick it up on Tuesday. Over next 2-hour we will assess him if he continues to be in sinus rhythm he will be discharged. Status: Acute (6) Atrial fibrillation, chronic: He has A. fib with slow ventricular response. Metoprolol will be stopped. He will be switched to very small dose of Coreg monitored on event monitor. Status: Acute Attestations Medical Necessity Statement*: We will assess the patient today if he is doing fine from heart rate oakley we may can discharge him today otherwise he will be staying 1 more night depending upon what is his walking result. Coding Level of Care Code Established Pt Acute Railroad Dining Car Steward/Stewardess for Talha Ashley Patient Type Established History Detailed Exam Detailed Medical Decision Making Moderate Complexity Diagnoses Acute exacerbation of CHF (congestive heart failure) I50.33 Heart failure type: diastolic Hypertension I15.8 Hypertension type: other secondary hypertension CAD (coronary artery disease) I25.10 Pulmonary fibrosis determined by high resolution computed tomography J84.10 Bradycardia R00.1 Atrial fibrillation, chronic I48.20
[2020-06-28 11:23] LABS: Glucose Point of Care 166 mg/dL (70-110)
--- NOTE | 2020-06-28 12:37 | PC.NURSE ---
received from icu via w/c.report received.pt is alert and oriented x 4.sr on monitor.oriented to room environment.instructed to notify staff for any cp,dizziness,sob..or for any concerns at all.pt verb understanding of instructions
[2020-06-28] MEDS: FUROsemide 20 mg Tablet PO (14:20)
[2020-06-28] MEDS: dicyclomine 10 mg Capsule PO (14:21)
[2020-06-28] MEDS: ketorolac 0.5% Op 5 mL Btl 1 DROP EYE-LEFT ×2 (14:21→17:27)
[2020-06-28 16:29] LABS: Glucose Point of Care 131 mg/dL (70-110)
--- NOTE | 2020-06-28 16:31 | PM.DCS ---
Discharge Providers Date of Admission: 06/24/20 19:39 Date of Discharge: June 28, 2020 Attending Provider at Admission: Seema Frye MD Attending Provider at Discharge: Jesus Blanton Primary Care Provider: Kelsey Burgos DO Diagnoses at Discharge Discharge Diagnosis (1) Acute exacerbation of CHF (congestive heart failure): Status: Acute Problem details: Appears to be nonischemic cardiomyopathy, EF 45-50%. Etiology is not clear. Avandia is discontinued. Please discuss also risks and benefits of continuing testosterone, consider stopping given it may worsen symptoms of CHF. Qualifiers: Heart failure type: diastolic Qualified Code(s): I50.33 - Acute on chronic diastolic (congestive) heart failure (2) Hypertension: Status: Chronic Qualifiers: Hypertension type: other secondary hypertension Qualified Code(s): I15.8 - Other secondary hypertension (3) CAD (coronary artery disease): Status: Chronic Problem details: Please note that as per coronary angiogram June 27, 2020 there is no significant CAD luminal irregularity (4) Pulmonary fibrosis determined by high resolution computed tomography: Status: Acute Problem details: Given concern for possible pulmonary fibrosis, for pulmonary function testing, and follow-up with pulmonology. (5) Bradycardia: Status: Acute Problem details: Mexiletine discontinued. Metoprolol had to be discontinued as well due to bradycardia, intermittent 2-second pauses. This resolved, and he has tolerated carvedilol well so far. Additional assessment by event monitor and cardiac follow-up in office. (6) Atrial fibrillation, chronic: Status: Acute (7) Hypoxemia: Status: Acute (8) Atrial fibrillation: Status: Chronic (9) Chronic anticoagulation: Status: Chronic Problem details: Xarelto (10) Obstructive sleep apnea: Status: Acute Problem details: on cpap (11) Obesity hypoventilation syndrome: Status: Acute Problem details: Continue CPAP with sleep. Is set up with oxygen by nasal cannula. (12) Allergy to alpha-gal: Status: Acute Problem details: Reports allergy to beef products. (13) Hypothyroidism: Status: Acute (14) Androgen deficiency: Status: Acute Problem details: testosterone replacement (15) Diabetes mellitus: Status: Chronic Problem details: Poorly controlled, A1c 9.6. Please discuss with him transition to insulin. He would like to first touch base with his PCP. Avandia at this time discontinued due to risk of causing cardiac adverse effects. Qualifiers: Diabetes mellitus complication detail: with polyneuropathy Diabetes mellitus complication status: with neurologic complications Diabetes mellitus shelter insulin use: without meterman use Diabetes mellitus type: type 2 Qualified Code(s): E11.42 - Type 2 diabetes mellitus with diabetic polyneuropathy (16) Hyperlipemia: Status: Chronic (17) Polycythemia: Status: Chronic Problem details: secondary, follows with Dr Petty, requires intermittent phlebotomy for hct > 53%. Please discuss again regarding risks and benefits of testosterone therapy in the setting of polycythemia. 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 Noted hypoxic, saturating 87% on room air at rest. There was no evidence of PE on CT of the chest. It showed groundglass opacities, possibly secondary to edema, as well with possible underlying pulmonary fibrosis or other ILD. COVID-19 rapid antigen was negative in the ER. On presentation intermittently in atrial fibrillation with RVR. On presentation reported taking mexiletine and 100 mg long-acting metoprolol, as well as Xarelto for atrial fibrillation. Reports had difficulty getting mexiletine recently. In the hospital was treated with IV diuretics, cardiac diet (here requested for free of mammalian protein, he reports he is allergic to beef products), with good urine output, improvement in peripheral edema as well as symptoms of orthopnea and shortness of breath. Was set up with CPAP with sleep, which he tolerated well. His mexiletine was discontinued, with improvement in volume status, respiratory condition, his atrial fibrillation pretty much after admission was rate controlled, although subsequently with noted bradycardia, heart rates in the 50s-60s following coronary angiography. Some of that may have been secondary to sedation medications, with noted intermittent 2-second pauses, however, some persistence of bradycardia noted, and so metoprolol was discontinued, and instead was started on carvedilol by the automatic lump making machine tender. He tolerated this well, with heart rates remaining in good range, including with ambulation, and without any recurrence of pauses. Due to transient bradycardia, it is requested that he be set up with a event monitor as discussed with him, and follow-up with automatic lump making machine tender in office. Coronary angiography performed due to congestive heart failure, with decrease in ejection fraction noted during this hospitalization down to 45-50%, with finding of absence of any major coronary disease, and so suggestive of nonischemic cardiomyopathy. He will need additional cardiology follow-up due to this. As in some instances Avandia can produce some cardiac complications, this is currently discontinued. He is also encouraged to discuss again with his primary care doctor, as well as hydroelectric machinery mechanic with regards to whether it is safe to continue testosterone replacement. His diabetes is otherwise not well controlled, with A1c of 9.6. Discussed with him target A1c of 8, to avoid progression of diabetes complications. He requires insulin therapy due to uncontrolled diabetes on multiple oral hypoglycemics, with peripheral neuropathy, cataracts, other complications, but currently states that would like to hold off on starting insulin during this discharge until he can get in with his primary care provider in office and start there. States he understands risk of progression of complications. He declined needing additional assistance at home including home health. On discharge he is requiring 2 L of oxygen by nasal cannula during the day, and so this is set up for him. He will continue on 40 mg of Lasix in the morning and 20 in the afternoon per cardiology recommendations, with potassium supplementation and follow-up in office. Physical Exam Const: COMMON NORMALS: no acute distress and patient oriented x3 GENERAL APPEARANCE: cooperative and comfortable NUTRITIONAL APPEARANCE: obese OTHER: Reclined in bed. Comfortable. HENMT: COMMON NORMALS: oropharynx normal Neck/C-Spine: COMMON NORMALS: no JVD Resp: COMMON NORMALS: normal respiratory effort AUSCULTATION: diminished lung sounds (But with improvement) Cardio: COMMON NORMALS: no JVD, regular rhythm, S1 normal heart sound present, S2 normal heart sound present and No murmurs present (Cardio) RHYTHM: regular rhythm HEART SOUNDS: S1 normal heart sound present and S2 normal heart sound present GI: COMMON NORMALS: Normal to inspection, nondistended, normoactive bowel sounds present, Soft to palpation and non-tender PALPATION: Yes Soft to palpation Extremity: COMMON NORMALS: no joint enlargement GENERAL: Yes edema (1+) Neuro: COMMON NORMALS: patient oriented x3 and moves all extremities Skin: COMMON NORMALS: no rashes or lesions noted GENERAL SKIN EXAM: no rashes or lesions noted Discharge Data Data Completed and Pending: Completed Studies During Hospitalization Category Date Time Status CT angio chest PE protcl [id number] Stat Cat Scan 06/24/20 17:31 Completed XR chest 1V lenka ble [id number] Stat Exams 06/24/20 16:21 Completed CV echo complete* [id number] Routine Ultrasound 06/25/20 06:00 Completed Pending at discharge Category Date Time Status LOADER HELPER request for service Routin e Exams 06/27/20 11:45 Taken Labs from last 24 hours 06/28/20 06/28/20 06/28/20 16:25 11:14 04:15 WBC RBC Hgb Hct MCV MCH MCHC RDW Plt Count MPV Neut % (Auto) Lymph % (Auto) [place] % (Auto) Eos % (Auto) Baso % (Auto) Neut # (Auto) Lymph # (Auto) [place] # (Auto) Eos # (Auto) Baso # (Auto) Nucleated RBC % (a uto) Nucleated RBCs # Sodium 137 Potassium 4.5 Chloride 97 L Carbon Dioxide 32 H Anion Gap 12.5 BUN 25 H Creatinine 1.2 GFR Calculation 61.0 L Glucose 149 H POC Glucose 131 166 Calculated Osmolal ity 284 L Calcium 8.8 Total Bilirubin 1.3 H AST 24 ALT 16 Alkaline Phosphata se 54 Total Protein 6.9 Albumin 3.8 Globulin 3.1 TSH 06/28/20 06/27/20 06/27/20 04:15 20:52 17:25 WBC 7.2 RBC 6.60 H Hgb 12.0 Hct 47.1 MCV 71.4 L MCH 18.2 L MCHC 25.5 L RDW 22.8 H Plt Count 179 MPV 10.0 Neut % (Auto) 72.8 Lymph % (Auto) 12.9 [place] % (Auto) 10.3 Eos % (Auto) 2.6 Baso % (Auto) 1.0 Neut # (Auto) 5.24 Lymph # (Auto) 0.9 [place] # (Auto) 0.7 Eos # (Auto) 0.2 Baso # (Auto) 0.1 Nucleated RBC % (a uto) 0 Nucleated RBCs # 0.0 Sodium Potassium Chloride Carbon Dioxide Anion Gap BUN Creatinine GFR Calculation Glucose POC Glucose 144 224 Calculated Osmolal ity Calcium Total Bilirubin AST ALT Alkaline Phosphata se Total Protein Albumin Globulin TSH 06/27/20 03:47 WBC RBC Hgb Hct MCV MCH MCHC RDW Plt Count MPV Neut % (Auto) Lymph % (Auto) [place] % (Auto) Eos % (Auto) Baso % (Auto) Neut # (Auto) Lymph # (Auto) [place] # (Auto) Eos # (Auto) Baso # (Auto) Nucleated RBC % (a uto) Nucleated RBCs # Sodium Potassium Chloride Carbon Dioxide Anion Gap BUN Creatinine GFR Calculation Glucose POC Glucose Calculated Osmolal ity Calcium Total Bilirubin AST ALT Alkaline Phosphata se Total Protein Albumin Globulin TSH 1.79 Vitals: Last Vital Signs Temp 98.3 F 06/28/20 12:00 Pulse 79 06/28/20 12:00 Resp 19 H 06/28/20 12:00 BP 109/75 06/28/20 12:00 Pulse Ox 90 06/28/20 15:39 Discharge Plan Discharge Patient Disposition: Home Condition: Stable Prescriptions: New furosemide 20 mg Tablet 20 mg PO DAILY@1400 30 Days RF: 0 carvedilol 3.125 mg Tablet 3.125 mg PO BID Qty: 60 RF: 0 Continued furosemide 40 mg tablet 40 mg PO DAILY RF: 0 atorvastatin 40 mg tablet 40 mg PO DAILY RF: 0 levothyroxine 137 mcg tablet 137 mcg PO DAILY RF: 0 trazodone 50 mg tablet 50 mg PO BID RF: 0 cetirizine 10 mg tablet 10 mg PO DAILY RF: 0 ketorolac 0.5 % drops See Rx Instructions .ROUTE .COMPLEX RF: 0 potassium chloride 20 mEq tablet,ER particles/crystals 20 meq PO BID RF: 0 prednisolone acetate 1 % drops,suspension See Rx Instructions .ROUTE .COMPLEX RF: 0 lansoprazole 30 mg capsule,delayed release(DR/EC) 30 mg PO DAILY RF: 0 testosterone cypionate 200 mg/mL oil See Rx Instructions .ROUTE .COMPLEX RF: 0 dicyclomine 10 mg capsule 10 mg PO DAILY RF: 0 Xarelto 20 mg tablet 20 mg PO DAILY RF: 0 Jardiance 25 mg tablet 25 mg PO DAILY RF: 0 Ozempic 1 mg/dose (2 mg/1.5 mL) pen injector 1 mg SUBCUT Q7D RF: 0 Changed lisinopril 10 mg tablet 5 mg PO DAILY Qty: 0 RF: 0 Discontinued metoprolol succinate 100 mg tablet extended release 24 hr 100 mg PO DAILY RF: 0 mexiletine 150 mg capsule 150 mg PO TID RF: 0 Avandia 4 mg tablet 4 mg PO DAILY RF: 0 Discharge Orders: Discharge Order (Routine); Ordered 06/28/20 Ordered By: Jesus Blanton Other Ambulatory Orders: [place] cardiac event monitor (Routine) Timeframe: [id number] Facility: [facility] - Location: Cardiac Diagnostic Laboratory Ordered By: Jesus Blanton DME: Oxygen (Order) Location: None Selected Ordered By: Jesus Blanton Referrals: Davin Elena MD [Physician] - 1 month Landon Petty MD [Hospitalist] - (As previously) Kelsey Burgos DO [Primary Care Provider] - 4-7 days Discharge Diet: Cardiac and Diabetic Discharge Activity: Increase activity as tolerated, As per PT/OT instructions and Oxygen as instructed Activity Restrictions/Additional Instructions: Please continue to wear your CPAP anytime you are asleep. Wear oxygen during the day at 2 L as instructed by respiratory therapy. Please follow-up with your primary care doctor with regards to multiple pulmonary conditions, please discuss referral for pulmonary function testing due to concern for possible pulmonary fibrosis, or other interstitial lung disease, to try to diagnose it early. Discussed also referral to a candy depositing machine operator with a pulmonary function test results. Due to nonischemic cardiomyopathy leading to heart failure, continue Lasix 40 mg in the morning, 20 mg in the afternoon for now until reassessed by her primary care doctor, and automatic lump making machine tender in office. If you experience worsening shortness of breath, significant weight gain, lower extremity swelling, more shortness of breath when lying flat, or other symptoms, please contact your primary care doctor or automatic lump making machine tender office. If you experience severe shortness of breath, chest pain, fainting, or other abnormal symptoms, please seek medical attention without delay. Avandia (rosiglitazone), 1 of your diabetes medications, is discontinued as in some uncommon instances it can lead to heart failure, and other cardiac complications. Please consider and discuss with your doctor discontinuation of testosterone as it can sometimes worsen heart failure as well, and in your case also consider discontinuing it due to elevated red blood cell counts. Continue follow-up with Dr. Petty with regards to polycythemia (elevated red blood cell counts). Discussed also with him with regards to testosterone therapy. As your A1c is 9.6, your diabetes needs better control. Please discuss with your primary care doctor and again revisit starting on insulin to bring your A1c closer to 8 to avoid long-term complications associated with diabetes. Due to intermittently slow heart rates noted before metoprolol was discontinued, you are referred to be set up for an event monitor on Tuesday. Please follow-up with Dr. Elena in office regarding the results. At this time metoprolol has been discontinued, and instead carvedilol is started. Consider obtaining a blood pressure or pulse oximetry measuring device which can also measure your pulse if you are unable to measure it on your wrist. In case your pulse is persistently low, below 60 bpm, or persistently high above 110 bpm even at rest, please contact your doctor. Continue follow-up with your eye doctor after you recover to resume preparations for the other cataract surgery. Discharge Attestations Time Spent in Discharge Care*: greater than 30 min Quality Metrics Clinical Quality Measures During this hospital stay, did patient experience: None Coding Level of Care Code Acute Electronics Test Engineer for [facility] Fwd Diagnoses Acute exacerbation of CHF (congestive heart failure) I50.33 Heart failure type: diastolic Hypertension I15.8 Hypertension type: other secondary hypertension CAD (coronary artery disease) I25.10 Pulmonary fibrosis determined by high resolution computed tomography J84.10 Bradycardia R00.1 Atrial fibrillation, chronic I48.20 Hypoxemia R09.02 Atrial fibrillation I48.91 Chronic anticoagulation Z79.01 Obstructive sleep apnea G47.33 Obesity hypoventilation syndrome E66.2 Allergy to alpha-gal Z91.018 Hypothyroidism E03.9 Androgen deficiency E29.1 Diabetes mellitus E11.42 Diabetes mellitus complication detail: with polyneuropathy Diabetes mellitus complication status: with neurologic complications Diabetes mellitus shelter insulin use: without meterman use Diabetes mellitus type: type 2 Hyperlipemia E78.5 Polycythemia D75.1 History of cataract surgery Z98.42 Laterality: left
[2020-06-28] MEDS: carvedilol 3.125 mg Tablet PO (17:26)
--- NOTE | 2020-06-28 19:07 | PC.NURSE ---
discharge instructions given and explained.pt verb understanding of instructions.discharged via w/c to exit.son to drive pt home
[2020-06-29 17:38] LABS: Glucose Point of Care 138 mg/dL (70-110)
== END 2020-06-28 19:11 | disposition home or self-care (01) | DRG 287 ==
LOC: ER 19:44 → MEDSURG 06-25 06:10 → ICU 06-27 12:49 → CSU 06-28 10:16
PROVIDERS: Emergency Medicine; Family Medicine; Internal Medicine Cardiovascular Disease; Admitting Provider Hospitalist; PCP Family Medicine; Visit Provider Internal Medicine
PROC: B2111ZZ Fluoroscopy of Multiple Coronary Arteries using Low Osmolar Contrast (ICD-10-PCS; principal; 2020-06-27 12:00)
DX: I11.0 Hypertensive heart disease with heart failure (principal); E66.2 Morbid (severe) obesity with alveolar hypoventilation; Z68.41 Body mass index [BMI] 40.0-44.9, adult; I48.20 Chronic atrial fibrillation, unspecified; I50.33 Acute on chronic diastolic (congestive) heart failure; I25.10 Atherosclerotic heart disease of native coronary artery without angina pectoris; J84.10 Pulmonary fibrosis, unspecified; Z87.891 Personal history of nicotine dependence; Z79.01 Long term (current) use of anticoagulants; M19.90 Unspecified osteoarthritis, unspecified site; E11.65 Type 2 diabetes mellitus with hyperglycemia; E11.51 Type 2 diabetes mellitus with diabetic peripheral angiopathy without gangrene; E11.42 Type 2 diabetes mellitus with diabetic polyneuropathy; E78.5 Hyperlipidemia, unspecified; E03.9 Hypothyroidism, unspecified; D75.1 Secondary polycythemia; J44.9 Chronic obstructive pulmonary disease, unspecified; I27.20 Pulmonary hypertension, unspecified; Z98.42 Cataract extraction status, left eye; R00.1 Bradycardia, unspecified; I42.8 Other cardiomyopathies; Z79.84 Long term (current) use of oral hypoglycemic drugs
CPT/HCPCS: 12345; 36415; 36416; 71045; 71275; 80048; 80053; 80061; 82962; 83036; 83735; 83880; 84100; 84443; 84484; 85025; 87426; 93005; 93306; 93454; 94660; 96372; 96375; 99283; C1769; C1887; C1894; J1644; J1815; J1940; J2250; J3010; J3490; J7030; Q0163; Q9967

== ENCOUNTER → 2020-07-25 09:09 | Outpatient (BNVA) | payer MEDICARE, SELFPAY | PROVIDERS: PCP Family Medicine; Visit Provider Internal Medicine | DX: Z11.59 Encounter for screening for other viral diseases (principal) | CPT/HCPCS: 87635 ==

== ENCOUNTER 2020-07-29 06:45 | Outpatient (CLI) | payer MEDICARE, SELFPAY ==
--- NOTE | 2020-07-29 08:30 | PFTS_ITS ---
Date of Study:07/29/20 Date of Dictation: MECHANICS: Forced vital capacity (FVC) is reduced. Forced expiratory volume in one second (FEV1) is reduced. FEV1/FVC is normal. FLOW VOLUME LOOP: Reduced flow at all lung volumes. LUNG VOLUMES: Total lung capacity (TLC) is normal. Residual volume (RV) is normal. DIFFUSING CAPACITY FOR CARBON MONOXIDE: Normal. INTERPRETATION: The pulmonary function tests are consistent with nonspecific ventilatory limitation. The postbronchodilator spirometry is consistent with mild restriction. However, the lung volumes are normal. This is likely secondary to a combined obstructive and restrictive process. Lung volumes are normal. Gas exchange (DLCO) is normal. MTDD
== END 2020-07-29 06:46 | disposition home or self-care (01) ==
LOC: RT 06:46
PROVIDERS: PCP Family Medicine; Visit Provider Registered Nurse
DX: I10 Essential (primary) hypertension (principal); G47.33 Obstructive sleep apnea (adult) (pediatric); R06.02 Shortness of breath
CPT/HCPCS: 94060; 94726; 94729; J7611

== ENCOUNTER → 2020-08-13 10:08 | Outpatient (BNVA) | payer MEDICARE, SELFPAY | PROVIDERS: PCP Family Medicine; Visit Provider Nurse Practitioner Family | DX: I48.20 Chronic atrial fibrillation, unspecified (principal); I50.33 Acute on chronic diastolic (congestive) heart failure; I15.8 Other secondary hypertension | CPT/HCPCS: 80048 ==

== ENCOUNTER → 2020-08-19 11:00 | Outpatient (BNVA) | payer MEDICARE, SELFPAY | PROVIDERS: PCP Family Medicine; Visit Provider Internal Medicine Cardiovascular Disease | DX: I50.9 Heart failure, unspecified (principal) | CPT/HCPCS: 80048 ==

== ENCOUNTER 2020-09-04 13:39 | Outpatient (CLI) | payer MEDICARE, SELFPAY ==
[2020-09-04 14:05] LABS: Basophils # 0.1 10^3/uL (0.0-0.1); Basophils % 0.7 %; Eosinophils # 0.2 10^3/uL (0.0-0.8); Eosinophils % 2.3 %; Hematocrit 51.8 % (42.0-52.0); Hemoglobin 14.6 g/dL (11.7-16.6); Lymphocytes # 1.3 10^3/uL (0.8-4.8); Lymphocytes % 15.3 %; Mean Corpuscular HGB Conc 28.2 g/dL (30.0-36.0); Mean Corpuscular Hemoglobin 21.6 pg (28.0-34.0); Mean Corpuscular Volume 76.7 fL (80-94); Mean Platelet Volume 9.9 fL (7.4-10.4); Monocytes # 0.7 10^3/uL (0.2-0.9); Monocytes % 7.9 %; Neutrophils # 6.12 10^3/uL (1.8-7.7); Neutrophils % 73.6 %; Nucleated Red Blood Cells % 0 %; Platelet Count 236 10^3/cmm (130-400); Red Blood Count 6.75 10^6/uL (4.1-5.3); Red Cell Distribution Width 25.3 % (12.1-15.1); White Blood Count 8.3 10^3/uL (4.0-10.0)
[2020-09-04 15:05] LABS: Slide Review Slide Review Perform
== END 2020-09-04 13:40 | disposition home or self-care (01) ==
LOC: ONCMED 13:41
PROVIDERS: PCP Family Medicine; Visit Provider Internal Medicine Medical Oncology
DX: D75.1 Secondary polycythemia (principal)
CPT/HCPCS: 36415; 85025; 99195

== ENCOUNTER 2020-12-11 11:59 | Outpatient (CLI) | payer MEDICARE, MEDICAID, SELFPAY ==
[2020-12-11 12:49] LABS: Basophils # 0.1 10^3/uL (0.0-0.1); Basophils % 0.8 %; Eosinophils # 0.2 10^3/uL (0.0-0.8); Eosinophils % 2.6 %; Hematocrit 47.5 % (42.0-52.0); Hemoglobin 14.8 g/dL (11.7-16.6); Lymphocytes # 1.2 10^3/uL (0.8-4.8); Lymphocytes % 16.8 %; Mean Corpuscular HGB Conc 31.2 g/dL (30.0-36.0); Mean Corpuscular Hemoglobin 27.5 pg (28.0-34.0); Mean Corpuscular Volume 88.3 fL (80-94); Mean Platelet Volume 11.2 fL (7.4-10.4); Monocytes # 0.6 10^3/uL (0.2-0.9); Monocytes % 8.6 %; Neutrophils # 5.13 10^3/uL (1.8-7.7); Neutrophils % 70.8 %; Nucleated Red Blood Cells % 0 %; Platelet Count 205 10^3/cmm (130-400); Red Blood Count 5.38 10^6/uL (4.1-5.3); Red Cell Distribution Width 15.5 % (12.1-15.1); White Blood Count 7.3 10^3/uL (4.0-10.0)
[2020-12-11 13:12] LABS: Alanine Aminotransferase 22 U/L (0-41); Albumin Level 3.8 g/dL (3.5-5.2); Alkaline Phosphatase 78 IU/L (40-130); Anion Gap 16.2 (5-19); Aspartate Amino Transferase 19 U/L (0-40); Blood Urea Nitrogen 35 mg/dL (8-23); Calcium 9.5 mg/dL (8.5-10.5); Carbon Dioxide 27 mmol/L (22-29); Chloride 95 mmol/L (98-107); Globulin 3.7 g/dL (1.3-4.6); Glomerular Filtration Rate 55.4 mL/min (90-130); Glucose 299 mg/dL (65-115); Osmolality Calculated 295 mOsm/kg (285-295); Potassium 5.2 mmol/L (3.5-5.1); Sodium 133 mmol/L (136-145); Total Bilirubin 0.5 mg/dL (0.15-1.2); Total Protein 7.5 g/dL (6.6-8.7)
--- NOTE | 2020-12-11 19:09 | ONC FU_ITS ---
Dr. Petty Patient Follow-Up Note Patient: Everardo Londono Unit #: [id number]: 1955 Dicatated By: Landon Petty M.D.Date of Visit:Dec 11, 2020 Onc Med Follow-up/Prog Note Chief Complaint: Secondary polycythemia. History of Present Illness: This is a 65 year-old man with significantly elevated hemoglobin/hematocrit levels. His evaluation was consistent with secondary polycythemia. I had seen him initially on 12/02/2016 in regard to an elevated blood count. The available records included a CBC from 07/09/2016 which showed an elevated hemoglobin level at 17.9 g with hematocrit 58.8%. The WBC was 8200, and the platelet count was 145,000. The red cell indices were normal. A more recent CBC, from 10/15/2016 showed further increase in the hemoglobin to 19.2 g with hematocrit 61.7%. The WBC remained normal at 8700 with platelet count slightly low at 124,000. In reviewing his records in [facility], there were at least several previous blood counts which dated back to 2008. Most of these showed borderline high hemoglobin/hematocrit levels. However, in 2010 he actually was mildly anemic. In March 2011 he had an admission to the hospital for acute on chronic respiratory failure with hypoxia and hypercapnia. It was felt that he had a combination of obesity/hypoventilation syndrome and some restrictive airway disease. The record indicated a history of congestive heart failure. A CT pulmonary angiogram in April 2016 showed mild generalized pulmonary fibrosis. His subsequent evaluation revealed an erythropoietin level in the normal range at 38 mIU/mL. His serum iron studies show slightly low transferrin saturation at 18.9% with ferritin normal at 113 ng/mL. The JAK2 V617F and the LB 2 exon 12 mutation is were not detected. As such, he did appeared to have secondary polycythemia. At that time he had been receiving testosterone injections for androgen deficiency, and those were subsequently stopped. He had initially failed to return for followup. He then had admissions to the hospital for chest pain on 12/25/2016 and on 03/22/2017. With the latter admission his CBC showed hemoglobin 20.3 g with hematocrit 63%. The white blood cell count was 10,600 and the platelet count was 136,000. His chem profile showed BUN 17 and creatinine 1.2 mg/dL. Liver enzymes were normal. His echocardiogram showed moderate left ventricular hypertrophy with estimated left ventricular ejection fraction at 55%. The right atrial pressure was estimated at 5 mmHg. He has multiple medical illnesses including hypertension, hyperlipidemia, type II diabetes, hypothyroidism, peripheral neuropathy, pulmonary fibrosis, obesity/hypoventilation, and obstructive sleep apnea. He is on CPAP at home. He has had chronic back pain following a back injury about 15 years ago. He also has androgen deficiency. He has history of smoking 2 packs of cigarettes daily for 20 years, but he quit smoking approximately 2004. INTERIM HISTORY: I had seen him for a follow-up visit on 03/28/2017, and at that point he did start phlebotomies, initially at a weekly interval, later reduced to every 2 weeks. Those were stopped following his phlebotomy on 05/03/2017, as his hematocrit had subsequently had come down to under 50%. At his follow-up visit in May 2020 he had become mildly anemic with hemoglobin 11.8 g. At that point he was advised to start an oral iron supplement. His repeat CBC on 09/04/2020 showed hemoglobin back up to 14.6 g with hematocrit 51.8%. He is seen for a scheduled followup visit. He has been feeling okay. He says his energy is pretty good. His ECOG score is 1. His appetite is variable. He has been having problems controlling his blood sugar. He did start on a new injection, but he thinks it is making his sugar go higher. He does not have fever or night sweats. He has a little sinus drainage. He does not complain of cough and he is not having shortness of breath or chest pain. He has no GI complaints. He has frequent urination. He has joint pain, mainly in his shoulders. He occasionally has headache and he sometimes has dizziness. He has numbness in the median nerve distribution of both hands. Medications: Atorvastatin Calcium 1 Tablet (of 40 mg) Oral daily, B Complex 1 Tablet Oral daily, Bydureon Subcutaneous q 1 week, CeleXA 1 (10 mg) Tablet Oral daily, Cetirizine HCl 1 (10 mg) Tablet Oral daily, [facility] Fish Oil 1 Capsule (of 1200 mg) Oral daily, [facility] Vitamin E 1 (400 Units) Capsule Oral daily, Furosemide 1 Tablet (of 40 mg) Oral daily, GlipiZIDE 1 Tablet (of 10 mg) Oral b.i.d., Glyxambi 1 Tablet (of 25-5 mg) Oral daily, Hydrocodone-Acetaminophen 1 Tablet (of 7.5-325 mg) Oral q 4 hours PRN, Klor-Con M20 1 Tablet (of 20 meq) Tablet, controlled release Oral b.i.d., Levo-T 1 Tablet (of 125 mcg) Oral daily, Lisinopril 1 Tablet (of 10 mg) Oral daily, MetFORMIN HCl 1 (1000 mg) Tablet Oral b.i.d., Metoprolol Tartrate 1 (50 mg) Tablet Oral daily, Mexiletine HCl 1 Capsule (of 150 mg) Oral t.i.d., Xarelto 1 (20 mg) Tablet Oral daily Allergies: Bactrim, Penicillins, and Tetracycline HCl. Vital Signs: Performed on Dec 11, 2020 14:41 Height - 72.00 in Weight - 312.4 lbs (LOW) BSA - 2.57 sq.m BMI - 42.37 (HIGH) Temperature - 98.1 F (LOW) Pulse - 83 /min Respiration - 18 /min BP - 105/61 mm(hg) O2 Sat - 92 % (LOW) Pain - 0 Physical Examination: Constitutional - He looks pretty good generally, Eyes - Sclerae nonicteric. Conjunctivae clear, ENMT - No lesions noted in the oral cavity, Hematologic/Lymphatic - No cervical, clavicular, or axillary adenopathy, Respiratory - Lungs are clear with diminished air movement bilaterally, Cardiovascular - Heart rhythm is irregular. There is no murmur, gallop or rub noted, Abdomen - Distended. Liver and spleen are not enlarged. There is no abdominal mass or ascites noted and there is no inguinal adenopathy, Extremities - There are chronic venous stasis changes bilaterally. There is no edema, Integumentary - His skin is generally very dry, Neurologic - No focal neurologic deficits noted. Lab/Imaging: Test performed on Dec 11, 2020 12:23 Sodium 133 mmol/L Potassium 5.2 mmol/L Chloride 95 mmol/L CO2 27 mmol/L Anion Gap 16.2 BUN 35 mg/dL Creatinine 1.3 mg/dL Cr Clearance (Est) 113.55 mL/min eGFR 55.4 mL/min Glucose 299 mg/dL Osmolality - Calculated 295 mOsm/kg Calcium 9.5 mg/dL Protein, Total 7.5 g/dL Albumin 3.8 g/dL Globulin 3.7 g/dL Bilirubin, Total 0.5 mg/dL ALT (SGPT) 22 U/L AST (SGOT) 19 U/L Alkaline Phosphatase 78 IU/L WBC 7.3 10 3/uL RBC 5.38 10 6/uL HGB 14.8 g/dL HCT 47.5 % MCV 88.3 fL MCH 27.5 pg MCHC 31.2 g/dL RDW 15.5 % Platelet Count 205 10 3/cmm MPV 11.2 fL Neutrophils 5.13 10 3/uL Lymphocytes 1.2 10 3/uL Monocytes 0.6 10 3/uL Eosinophils 0.2 10 3/uL Basophils 0.1 10 3/uL Neutrophil % 70.8 % Lymphocyte % 16.8 % Monocyte % 8.6 % Eosinophil % 2.6 % Basophils % 0.8 % NRBC % 0 % Problem List: 1. Patient with moderately elevated hemoglobin/hematocrit levels. His laboratory evaluation in November 2016 was consistent with secondary polycythemia. 2. He has a borderline low to mildly decreased platelet count. The cause/clinical significance is uncertain. 3. Hypertension. 4. Hyperlipidemia. 5. Type II diabetes with peripheral neuropathy. 6. Hypothyroidism. 7. Obesity/hypoventilation. 8. Obstructive sleep apnea. 9. There is CT evidence of mild, generalized pulmonary fibrosis. 10. Chronic back pain. 11. Androgen deficiency, previously on replacement therapy. Problems Addressed with this Encounter and Plan: 1. Secondary polycythemia. He has been managed with phlebotomy as needed. As of May 2020 he had become mildly anemic, but that did resolve with oral iron supplementation. His hemoglobin/hematocrit levels have since then been within target range. His overall clinical status has been stable. He is advised now to stop the oral iron supplement. I will just plan to see him again in 6 months. 2. Mild hyperkalemia. He is advised to stop his potassium supplement. 3. He has numbness in the median nerve distribution of both hands suggestive of carpal tunnel syndrome. He is given the option to have further evaluation with nerve conduction studies. He is to let us now if he wants those to be scheduled. Signed By: Landon Petty M.D. <<Signature on File>>
== END 2020-12-11 12:00 | disposition home or self-care (01) ==
LOC: ONCMED 12:02
PROVIDERS: PCP Family Medicine; Visit Provider Internal Medicine Medical Oncology
DX: D75.1 Secondary polycythemia (principal); E87.5 Hyperkalemia; R20.0 Anesthesia of skin
CPT/HCPCS: 36415; 80053; 85025; 99214

== ENCOUNTER 2021-01-20 11:22 | Observation (INO) | payer MEDICARE, SELFPAY ==
[2021-01-20] VITALS (10 sets, daily range): BP systolic 88–134; BP diastolic 50–73; PULSE 71–103; RESP 17–21; TEMP 35.6–36.6; O2SAT 92–97; BMI 42.8
--- NOTE | 2021-01-20 11:44 | XRR_ITS ---
PROCEDURE INFORMATION: Exam: XR Chest Exam date and time: 01/20/2021 12:16 PM Age: 65 years old Clinical indication: Cardiovascular condition or disease; Congestive heart failure (chf); Cause unknown; Type unknown; Additional info: Hypotension/chf TECHNIQUE: Imaging protocol: XR of the chest Views: 1 view. COMPARISON: CR XR chest 1V portable [id number] 06/24/2020 4:24 PM FINDINGS: Lungs: The pulmonary vascularity is normal. The lungs are clear. Pleural spaces: Unremarkable. No pleural effusion. No pneumothorax. Heart/Mediastinum: The cardiac silhouette is enlarged but unchanged. Bones/joints: Unremarkable. XR/XR chest 1V portable [id number] IMPRESSION: 1. Stable cardiomegaly. 2. No acute abnormality.
--- NOTE | 2021-01-20 11:44 | ECG_ITS ---
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 Measurements Intervals Ona Rate: 98 P: TX: QRS: -62 QRSD: 100 T: 73 QT: 317 QTc: 406 Interpretive Statements ATRIAL FIBRILLATION LEFT AXIS DEVIATION [QRS AXIS < -30] POSSIBLE ANTERIOR MYOCARDIAL INFARCTION , PROBABLY OLD [30 ms Q WAVE IN V3/V4, OR R < 0.2 mV IN V4] Compared to ECG 06/24/2020 23:24:27 Aberrant conduction of supraventricular beat(s) no longer present Ventricular premature complex(es) no longer present Myocardial infarct finding still present Electronically Signed On 01-21-2021 0:01:18 APPLIANCE TECHNICIAN by John Rodney M.D. [id number]
[2021-01-20 13:28] LABS: Basophils % 0.5 %; Eosinophils # 0.2 10^3/uL (0.0-0.8); Hematocrit 47.7 % (42.0-52.0); Hemoglobin 14.7 g/dL (11.7-16.6); Lymphocytes # 0.9 10^3/uL (0.8-4.8); Lymphocytes % 11.9 %; Mean Corpuscular HGB Conc 30.8 g/dL (30.0-36.0); Mean Corpuscular Hemoglobin 27.1 pg (28.0-34.0); Mean Corpuscular Volume 87.8 fL (80-94); Mean Platelet Volume 11.5 fL (7.4-10.4); Monocytes # 0.6 10^3/uL (0.2-0.9); Neutrophils # 5.69 10^3/uL (1.8-7.7); Neutrophils % 77.3 %; Nucleated Red Blood Cells % 0 %; Platelet Count 190 10^3/cmm (130-400); Red Blood Count 5.43 10^6/uL (4.1-5.3); Red Cell Distribution Width 14.5 % (12.1-15.1); White Blood Count 7.4 10^3/uL (4.0-10.0)
[2021-01-20 13:33] LABS: Add Urine Microscopic? NO
[2021-01-20 13:40] LABS: Bilirubin Urine Neg (Negative); Blood Urine Neg (Negative); Glucose Urine UA 4+ (Normal); Ketones Urine Negative (Negative); Leukocyte Esterase Urine Negative (Negative); Nitrate Urine Negative (Negative); Protein Urine Neg (Negative); Urine Appearance Clear (CLEAR); Urine Color Straw (Yellow); Urobilinogen Urine Norm (Negative); pH Urine 5 (5-7)
[2021-01-20] MEDS: sodium chloride 0.9% 500 ML IV (13:47)
[2021-01-20 13:48] LABS: Alanine Aminotransferase 22 U/L (0-41); Albumin Level 3.8 g/dL (3.5-5.2); Alkaline Phosphatase 77 IU/L (40-130); Anion Gap 15.8 (5-19); Aspartate Amino Transferase 17 U/L (0-40); Blood Urea Nitrogen 50 mg/dL (8-23); Calcium 9.2 mg/dL (8.5-10.5); Carbon Dioxide 24 mmol/L (22-29); Chloride 93 mmol/L (98-107); Globulin 3.6 g/dL (1.3-4.6); Glomerular Filtration Rate 50.9 mL/min (90-130); Glucose 346 mg/dL (65-115); NT Pro B Type Natriuretic Pept 334 pg/mL (0-125); Osmolality Calculated 291 mOsm/kg (285-295); Potassium 5.8 mmol/L (3.5-5.1); Sodium 127 mmol/L (136-145); Total Bilirubin 0.4 mg/dL (0.15-1.2); Total Protein 7.4 g/dL (6.6-8.7)
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
--- NOTE | 2021-01-20 16:46 | PC.NURSE ---
ADMIT NOTE UP VIA W/C - ASSIST TO BED - SEE PHYSICAL ADMISSION ASSESSMENT FOR DETAILS - PT NOTED SMALL SCABBED AREAS SCATTERED OVER ENTIRE BODY - DAYO LOWER LEGS NOTED TO HAVE DARKENED SKIN AREAS WITH FLAKING SKIN - NO OPEN AREAS NOTED - ORIENTATION TO ROOM PROVIDED PER THIS NURSE
[2021-01-20 17:01] LABS: Glucose Point of Care 267 mg/dL (70-110)
--- NOTE | 2021-01-20 18:15 | CTR_ITS ---
PROCEDURE INFORMATION: Exam: CT Head Without Contrast Exam date and time: 01/20/2021 6:29 PM Age: 65 years old Clinical indication: Dizziness; Additional info: Dizziness, headache, evalute for CVA TECHNIQUE: Imaging protocol: Computed tomography of the head without contrast. Radiation optimization: All CT scans at this facility use at least one of these dose optimization techniques: automated exposure control; mA and/or kV adjustment per patient size (includes targeted exams where dose is matched to clinical indication); or iterative reconstruction. COMPARISON: CT head wo con* [id number] 04/07/2019 6:32 PM RADIATION DOSE METRICS: Total DLP (mGy-cm): 1011.85 FINDINGS: Brain: Mild parenchymal volume loss noted. There is decreased attenuation of the periventricular white matter, consistent with mild chronic microangiopathic white matter disease. No intracranial hemorrhage noted. No parenchymal edema identified. Cerebral ventricles: The ventricles are proportional to the sulci. No hydrocephalus is noted. Bones/joints: Unremarkable. No acute fracture. Paranasal sinuses: Visualized sinuses are unremarkable. No fluid levels. Mastoid air cells: Unremarkable as visualized. No mastoid effusion. Soft tissues: Unremarkable. CT/CT head wo con* [id number] IMPRESSION: 1. No acute intracranial abnormality demonstrated. 2. There is no interval change from the prior examination. Radiation Dose CTDIVOL = (mGy): DLP = 1011.85 (mGy-cm)
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
--- NOTE | 2021-01-20 18:40 | PC.NURSE ---
OFF UNIT TAKEN VIA W/C TO CT SCAN WITH STAFF AT SIDE
[2021-01-20] MEDS: trazodone 50 mg Tablet PO (21:14)
[2021-01-20] MEDS: gabapentin 100 mg Capsule PO (21:14)
[2021-01-20] MEDS: buPROPion SR (12 HR) 150 mg Tablet PO (21:14)
[2021-01-20 21:41] LABS: Glucose Point of Care 322 mg/dL (70-110)
[2021-01-21] VITALS (8 sets, daily range): BP systolic 104–127; BP diastolic 64–74; PULSE 61–84; RESP 17–18; TEMP 36.1–36.9; O2SAT 90–95
[2021-01-21 05:04] LABS: Basophils % 0.7 %; Eosinophils # 0.2 10^3/uL (0.0-0.8); Hematocrit 45.8 % (42.0-52.0); Hemoglobin 14.2 g/dL (11.7-16.6); Lymphocytes # 1.1 10^3/uL (0.8-4.8); Lymphocytes % 18.2 %; Mean Corpuscular Hemoglobin 27.2 pg (28.0-34.0); Mean Corpuscular Volume 87.6 fL (80-94); Mean Platelet Volume 11.5 fL (7.4-10.4); Monocytes # 0.5 10^3/uL (0.2-0.9); Monocytes % 8.7 %; Neutrophils # 4.14 10^3/uL (1.8-7.7); Neutrophils % 68.9 %; Nucleated Red Blood Cells % 0 %; Platelet Count 177 10^3/cmm (130-400); Red Blood Count 5.23 10^6/uL (4.1-5.3); Red Cell Distribution Width 14.6 % (12.1-15.1)
[2021-01-21 05:39] LABS: Alanine Aminotransferase 20 U/L (0-41); Albumin Level 3.7 g/dL (3.5-5.2); Alkaline Phosphatase 73 IU/L (40-130); Anion Gap 12.8 (5-19); Aspartate Amino Transferase 17 U/L (0-40); Blood Urea Nitrogen 39 mg/dL (8-23); Calcium 9.4 mg/dL (8.5-10.5); Carbon Dioxide 26 mmol/L (22-29); Chloride 99 mmol/L (98-107); Creatinine Clr Calc Pharmacy 98.3845; Globulin 3.4 g/dL (1.3-4.6); Glomerular Filtration Rate 67.2 mL/min (90-130); Glucose 224 mg/dL (65-115); Osmolality Calculated 292 mOsm/kg (285-295); Potassium 4.8 mmol/L (3.5-5.1); Sodium 133 mmol/L (136-145); Thyroid Stimulating Hormone 2.49 uIU/mL (0.27-4.20); Total Bilirubin 0.5 mg/dL (0.15-1.2); Total Protein 7.1 g/dL (6.6-8.7)
[2021-01-21 05:55] LABS: Estmated Average Glucose 295; Hemoglobin A1C 11.9 % (4.0-6.0)
[2021-01-21 06:18] LABS: Glucose Point of Care 243 mg/dL (70-110)
--- NOTE | 2021-01-21 07:47 | PC.NURSE ---
Patient was not willing to get up to a chair for breakfast but was willing to set on the side of the bed.
[2021-01-21] MEDS: levothyroxine 150 mcg Tablet PO (08:32)
[2021-01-21] MEDS: pantoprazole DR 40 mg Tablet PO (08:32)
[2021-01-21] MEDS: rivaroxaban 10 mg Tablet 20 MG PO (08:33)
[2021-01-21] MEDS: gabapentin 100 mg Capsule PO ×3 (08:33→21:14)
[2021-01-21] MEDS: buPROPion SR (12 HR) 150 mg Tablet PO ×2 (08:38→21:14)
--- NOTE | 2021-01-21 09:36 | PC.CHAP ---
Pastoral Care Encounter/Spiritual Assessment Type of Contact [] Declined head of drama visit [] Patient/Family/Request visit [] Outpatient visit [] Follow-up visit [] Physician referral [] Code/Alert [x] Routine visit [] Staff referral [] Actively dying [] Patient sleeping [] Family support [] [] Out of room [] Palliative care [] [] Receiving care in room [] Pre-surgical visit [] Trauma [] Long length of stay [] ICU visit [] Other: Relational/Emotional Strength [] Patient feels connected with others/family/visitors/staff [] Distress [] Loneliness/isolation [] Abandonment Spirituality of Patient [x Person of Keisha [] Attends Alevism of their Keisha [x] Believes in Prayer [] Reads Bible or Holiness materials [] There are Spiritual issues to be addressed Computer Systems Technician Interventions [x] Prayer [x] Active listening [x] Non-anxious presence [x] Spiritual/emotional support [] Crisis/trauma care [] Spiritual counseling [] Bereavement support [] Provided bereavement packet [] Provided Bible/devotional materials [] Provided toy/stuffed animal, coloring book to patient or family member [] Provided Communion [] Anointing/War [] Salvation [x] Completed spiritual assessment [] Other: Impact on Illness or Injury [] Angry [] Fearful [] Anxious [] Often cries [] Exhaustion [] Unable to work [] Unable to attend judaism [] Unable to walk/stand [] Unable to read [] Unable to drive [] Unable to eat/drink [] Unable to sleep [] Unable to be with family [] Patient intubated [] Other: Summary patient loves jaya carrillo he is receiving Time spent with patient 10 min
[2021-01-21] MEDS: metoprolol tartrate 25 mg Tablet PO ×2 (10:35→21:14)
[2021-01-21 11:06] LABS: Glucose Point of Care 272 mg/dL (70-110)
--- NOTE | 2021-01-21 14:08 | PC.NURSE ---
DR HARI NORIEGA PREVIOUSLY IN ROOM TO DISCUSS PLAN OF CARE
[2021-01-21 15:58] LABS: Glucose Point of Care 190 mg/dL (70-110)
--- NOTE | 2021-01-21 16:00 | PM.PN ---
Subjective Subjective: Interval history: Blood pressure is improved today after holding antihypertensives, he did receive metoprolol this morning. Heart rate has ranged between 61-89. Systolic blood pressure between 100-1 20 this morning. His dizziness is not significantly improved even with correction of his blood pressure. Orthostatic drop from 122 100 systolic. No concomitant tachycardia. This patient states dizziness not significantly different with positional changes. Renal function improving today, hyperkalemia resolved. Medications: Reviewed: Yes Vitals/I&O/Wt Last Vital Signs Temp 97.1 F L 01/21/21 14:51 Pulse 61 01/21/21 14:51 Resp 17 01/21/21 14:51 BP 107/64 01/21/21 14:51 Pulse Ox 95 01/21/21 14:51 01/21/21 01/21/21 01/21/21 06:59 14:59 22:59 Intake Total 840 / 840 Output Total 1650 / 2150 Balance -1650 / -1530 840 / 840 Weight last 48 hrs Weight 141.657 kg Weight 143.335 kg Physical Exam Narrative: EXAM NARRATIVE: GEN: Awake, alert and oriented, no acute distress CVS: S1S2 N RS: CTA B/L Abd: Soft, nt/nd , bs+ DISINTEGRATOR FEEDER: no focal neuro deficits , no nystagmus Data : 01/21/21 04:22 01/21/21 04:22 A&P Assessment and plan (1) Hypotension: Status: Acute Qualifiers: Hypotension type: unspecified hypotension type Qualified Code(s): I95.9 - Hypotension, unspecified (2) Atrial fibrillation, chronic: Status: Acute (3) Dizziness: Status: Acute (4) Obesity hypoventilation syndrome: Status: Acute (5) Chronic anticoagulation: Status: Chronic (6) Diabetes mellitus: Status: Chronic Qualifiers: Diabetes mellitus type: type 2 Diabetes mellitus chcf insulin use: without intermediate school teacher use Diabetes mellitus complication status: with neurologic complications Diabetes mellitus complication detail: with polyneuropathy Qualified Code(s): E11.42 - Type 2 diabetes mellitus with diabetic polyneuropathy (7) Hyperkalemia: Status: Acute (8) DOLORES (acute kidney injury): Status: Acute Additional A&P Information 65 M with multiple comorbidities p/w dizziness and hypotension Differentials include hypotension as a result of medciation use, this is nearly resolved after holding antihypertensives. Patient states that he has lost about 50 pounds since September of last year and this might be a possible explanation that his blood pressure is currently controlled off of antihypertensives. However even with improvement in his baseline blood pressure, his dizziness is not resolved. Orthostatic drop from 1 2200 systolic noted. However patient states he does not feel any different whether in the sitting or standing position. No nystagmus noted on physical exam. Trial of meclizine today if dizziness improves. Alternate possibilities may include autonomic dysfunction from uncontrolled diabetes, HbA1c is at 11.9. Will benefit from endocrinology referral as outpatient and the same will be provided to him. Currently saturating 95% on room air, unlikely that hypoxia is contributing, however hypercapnia cannot be excluded. Will check ABG and also check carbon monoxide level. CT head was performed yesterday as patient also complaining of headache over the same timeframe, did not show any masses or past CVA. No noted events on telemetry. TSH within range of 2.49 Could not participate with PT due to dizziness Attestations Medical Necessity Statement*: persistent dizziness, symptoms not controlled, trial of meclizine, evaluate for hypercapnea & CO level Coding Level of Care Code Acute Conciliator for Chg Fwd Diagnoses Hypotension I95.9 Hypotension type: unspecified hypotension type Atrial fibrillation, chronic I48.20 Dizziness R42 Obesity hypoventilation syndrome E66.2 Chronic anticoagulation Z79.01 Diabetes mellitus E11.42 Diabetes mellitus type: type 2 Diabetes mellitus intermediate school teacher insulin use: without intermediate school teacher use Diabetes mellitus complication status: with neurologic complications Diabetes mellitus complication detail: with polyneuropathy Hyperkalemia E87.5 DOLORES (acute kidney injury) N17.9
[2021-01-21] MEDS: meclizine 25 mg tablet PO (16:28)
[2021-01-21 17:12] LABS: ABG PCO2 40.5 mmHg (35-45); ABG PH Result 7.41 (7.35-7.45); Arterial Blood Gas Hematocrit 47.2 % (42-52); Base Excess ABG 1.1 mmol/L (-2.0-2.0); Blood Gas Allen Test Pos; Blood Gas Sample Type Arterial; Carboxyhemoglobin 1.2 %THgb (0.4-20.1); HCO3 ABG 25.8 mmol/L (22-26); HGB O2 Sat 93.9 % (95-100); Ionized Calcium Level - ABG 1.3 mmol/L (1.1-1.4); Methemoglobin 0.7 % (0.4-1.5); Oxygen Saturation ABG 95.7; PO2 ABG 76.1 mmHg (80.0-100.0); Potassium Level - ABG 4.9 mmol/L (3.5-5.0); Total Hemoglobin 15.4 g/dL (14-18)
[2021-01-21 17:13] LABS: Blood Gas Operator Identificat ED; Blood Gas Sample Site Radial, left; Oxygen Device ROOM AIR
[2021-01-21 20:32] LABS: Glucose Point of Care 207 mg/dL (70-110)
[2021-01-21] MEDS: trazodone 50 mg Tablet PO (21:14)
[2021-01-22 04:00] VITALS: BP 137/72; PULSE 66; RESP 18; TEMP 36.7; O2SAT 90
[2021-01-22 05:20] LABS: Basophils # 0.1 10^3/uL (0.0-0.1); Eosinophils # 0.2 10^3/uL (0.0-0.8); Eosinophils % 2.7 %; Hematocrit 49.3 % (42.0-52.0); Hemoglobin 15.4 g/dL (11.7-16.6); Lymphocytes # 1.2 10^3/uL (0.8-4.8); Lymphocytes % 19.2 %; Mean Corpuscular HGB Conc 31.2 g/dL (30.0-36.0); Mean Corpuscular Hemoglobin 27.6 pg (28.0-34.0); Mean Corpuscular Volume 88.5 fL (80-94); Mean Platelet Volume 10.9 fL (7.4-10.4); Monocytes # 0.6 10^3/uL (0.2-0.9); Monocytes % 9.1 %; Neutrophils # 4.23 10^3/uL (1.8-7.7); Neutrophils % 67.5 %; Nucleated Red Blood Cells % 0 %; Platelet Count 188 10^3/cmm (130-400); Red Blood Count 5.57 10^6/uL (4.1-5.3); Red Cell Distribution Width 14.5 % (12.1-15.1); White Blood Count 6.3 10^3/uL (4.0-10.0)
[2021-01-22 05:43] LABS: Add RBC Morph No
[2021-01-22 06:23] LABS: Glucose Point of Care 220 mg/dL (70-110)
[2021-01-22 06:24] LABS: Alanine Aminotransferase 26 U/L (0-41); Albumin Level 3.8 g/dL (3.5-5.2); Alkaline Phosphatase 74 IU/L (40-130); Anion Gap 15.8 (5-19); Aspartate Amino Transferase 25 U/L (0-40); Blood Urea Nitrogen 29 mg/dL (8-23); Calcium 9.8 mg/dL (8.5-10.5); Carbon Dioxide 24 mmol/L (22-29); Chloride 101 mmol/L (98-107); Globulin 3.5 g/dL (1.3-4.6); Glomerular Filtration Rate 67.2 mL/min (90-130); Glucose 196 mg/dL (65-115); Osmolality Calculated 293 mOsm/kg (285-295); Potassium 4.8 mmol/L (3.5-5.1); Sodium 136 mmol/L (136-145); Total Bilirubin 0.5 mg/dL (0.15-1.2); Total Protein 7.3 g/dL (6.6-8.7)
[2021-01-22 07:32] VITALS: BP 101/63; PULSE 61; RESP 17; TEMP 36.1; O2SAT 95
[2021-01-22 10:57] VITALS: BP 107/67; PULSE 81; RESP 17; TEMP 36.6; O2SAT 95
[2021-01-22] MEDS: pantoprazole DR 40 mg Tablet PO (11:08)
[2021-01-22] MEDS: gabapentin 100 mg Capsule PO ×2 (11:08→14:06)
[2021-01-22] MEDS: buPROPion SR (12 HR) 150 mg Tablet PO (11:08)
[2021-01-22] MEDS: alfuzosin 10 mg ER Tablet PO (11:08)
[2021-01-22] MEDS: levothyroxine 150 mcg Tablet PO (11:08)
[2021-01-22] MEDS: metoprolol tartrate 25 mg Tablet PO (11:09)
[2021-01-22] MEDS: rivaroxaban 10 mg Tablet 20 MG PO (11:09)
[2021-01-22] MEDS: atorvastatin 40 mg Tablet PO (11:09)
[2021-01-22 11:19] LABS: Glucose Point of Care 309 mg/dL (70-110)
[2021-01-22 15:06] VITALS: BP 107/67; PULSE 81; RESP 17; TEMP 36.6; O2SAT 95
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
--- NOTE | 2021-01-22 16:18 | P.DS_ITS ---
Discharge Providers Date of Admission: 01/20/21 15:30 Date of Discharge: January 22, 2021 Attending Provider at Admission: Leticia Lane MD Attending Provider at Discharge: Leticia Lane MD Primary Care Provider: Kelsey Burgos DO Diagnoses at Discharge Discharge Diagnosis (1) Hypotension: Status: Acute Qualifiers: Hypotension type: unspecified hypotension type Qualified Code(s): I95.9 - Hypotension, unspecified (2) Atrial fibrillation, chronic: Status: Acute (3) Dizziness: Status: Acute (4) Obesity hypoventilation syndrome: Status: Acute Permanent problem details: Continue CPAP with sleep. Is set up with oxygen by nasal cannula. (5) Chronic anticoagulation: Status: Chronic Permanent problem details: Xarelto (6) Diabetes mellitus: Status: Chronic Permanent problem details: Poorly controlled, A1c 9.6. Please discuss with him transition to insulin. He would like to first touch base with his PCP. Avandia at this time discontinued due to risk of causing cardiac adverse effects. 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 He had been complaining of intermittent dizziness since at least November of this year described as a sensation of having unsteady gait without any apparent triggering factors. Over the past week prior to presentation episodes increased in frequency and he went to his primary care physician for evaluation. He was noted to have hypotension with systolic blood pressure ranging between 50-80. Upon presentation to the ER SBP was ranging between 99-1 06 with orthostatic drop to systolic of 80. He also reported some syncopal events in the past though none over the last week. ROS was positive for headaches over the same timeframe. For this reason a CAT scan of the head was performed to exclude any posterior circulation CVA versus masses and was negative for the same. His antihypertensives were held, systolic blood pressure remained within range during the course of admission, however even with correction of blood pressure his sensation of dizziness does not change significantly. There was no nystagmus noted on physical exam. There were no noted events on telemetry, patient does have a history of A. fib, denied any chest pain or palpitations. TSH was within range. Trial of meclizine was given on January 20, 2021 and on day of discharge patient reports significantly improved symptoms. States he has not been dizzy today and ambulated in the hallway. Prescription provided for meclizine at discharge. Noted to have uncontrolled blood sugar, also reports fingersticks ranging between 3 80-500 at home. Provided with a referral to see fire protection fabricator as outpatient. Antihypertensives remain on hold at discharge. He has been asked to resume Lasix 20 mg daily if he sees increasing pedal edema. Also recommended follow-up with cardiology within 1 week to reassess need for Lasix. 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 % (Auto) Eos % (Auto) Baso % (Auto) Neut # (Auto) Lymph # (Auto) [place] # (Auto) Eos # (Auto) Baso # (Auto) Nucleated RBC % (a uto) Nucleated RBCs # Specimen Type Sample Site ABG pH ABG pCO2 ABG pO2 ABG HCO3 ABG O2 Saturation ABG Base Excess Master Test A-a O2 Gradient Hematocrit Hgb O2 Saturation Carboxyhemoglobin Methemoglobin Total Hemoglobin Sodium 136 Potassium 4.8 Glucose 196 H Ionized Calcium O2 Delivery Device FiO2 Division Order Technician ID Chloride 101 Carbon Dioxide 24 Anion Gap 15.8 BUN 29 H Creatinine 1.1 GFR Calculation 67.2 L POC Glucose 309 H 220 H Calculated Osmolal ity 293 Calcium 9.8 Total Bilirubin 0.5 AST 25 ALT 26 Alkaline Phosphata se 74 Total Protein 7.3 Albumin 3.8 Globulin 3.5 01/22/21 01/21/21 01/21/21 04:18 20:17 17:02 WBC 6.3 RBC 5.57 H Hgb 15.4 Hct 49.3 MCV 88.5 MCH 27.6 L MCHC 31.2 RDW 14.5 Plt Count 188 MPV 10.9 H Neut % (Auto) 67.5 Lymph % (Auto) 19.2 [place] % (Auto) 9.1 Eos % (Auto) 2.7 Baso % (Auto) 1.0 Neut # (Auto) 4.23 Lymph # (Auto) 1.2 [place] # (Auto) 0.6 Eos # (Auto) 0.2 Baso # (Auto) 0.1 Nucleated RBC % (a uto) 0 Nucleated RBCs # 0.0 Specimen Type Arterial Sample Site Radial, left ABG pH 7.41 ABG pCO2 40.5 ABG pO2 76.1 L ABG HCO3 25.8 ABG O2 Saturation 95.7 ABG Base Excess 1.1 Master Test Pos A-a O2 Gradient 3.0 L Hematocrit 47.2 Hgb O2 Saturation 93.9 L Carboxyhemoglobin 1.2 Methemoglobin 0.7 Total Hemoglobin 15.4 Sodium 134.0 Potassium 4.9 Glucose 171.0 H Ionized Calcium 1.3 O2 Delivery Device Room air FiO2 21.0 Division Order Technician ID Ed Chloride Carbon Dioxide Anion Gap BUN Creatinine GFR Calculation POC Glucose 207 H Calculated Osmolal ity Calcium Total Bilirubin AST ALT Alkaline Phosphata se Total Protein Albumin Globulin Vitals: Last Vital Signs Temp 97.8 F 01/22/21 15:06 Pulse 81 01/22/21 15:06 Resp 17 01/22/21 15:06 BP 107/67 01/22/21 15:06 Pulse Ox 95 01/22/21 15:06 Discharge Plan Discharge Patient Disposition: Home Condition: Stable Prescriptions: New meclizine 25 mg Tablet 25 mg PO TID PRN (Reason: Dizziness) 15 Days Qty: 45 RF: 0 Continued docusate sodium [Dulcolax Stool Softener (dss)] 100 mg capsule 100 mg PO DAILY RF: 0 metoprolol tartrate 25 mg tablet 25 mg PO BID Qty: 180 RF: 3 atorvastatin 40 mg tablet 40 mg PO DAILY RF: 0 trazodone 50 mg tablet 50 mg PO BID RF: 0 Xarelto 20 mg tablet 20 mg PO DAILY RF: 0 Jardiance 25 mg tablet 25 mg PO DAILY RF: 0 lansoprazole 30 mg capsule,delayed release(DR/EC) 30 mg PO DAILY RF: 0 metformin 500 mg tablet 500 mg PO BID RF: 0 bupropion HCl 150 mg tablet sustained-release 12 hr 150 mg PO Q12H RF: 0 levothyroxine 150 mcg tablet 150 mcg PO DAILY RF: 0 gabapentin 100 mg capsule 100 mg PO TID RF: 0 albuterol sulfate 90 mcg/actuation HFA aerosol inhaler 2 puff INHALATION Q6H PRN (Reason: Shortness Of Breath) RF: 0 alfuzosin 10 mg tablet extended release 24 hr 10 mg PO DAILY RF: 0 Soliqua 100/33 100 unit-33 mcg/mL insulin pen See Rx Instructions .ROUTE .COMPLEX RF: 0 Calcium + Vitamin D 1 tab PO DAILY RF: 0 Fish Oil 1 cap PO DAILY RF: 0 Changed furosemide 40 mg tablet 20 mg PO DAILY Qty: 180 RF: 3 Discontinued lisinopril 20 mg tablet 20 mg PO DAILY Qty: 90 RF: 3 spironolactone 25 mg tablet 25 mg PO DAILY Qty: 90 RF: 3 cetirizine 10 mg tablet 10 mg PO DAILY PRN (Reason: Allergy Symptoms) RF: 0 potassium chloride 20 mEq tablet,ER particles/crystals 20 meq PO BID RF: 0 dicyclomine 10 mg capsule 10 mg PO QID RF: 0 Discharge Orders: Discharge Order (Routine); Ordered 01/22/21 Ordered By: Leticia Lane Referrals: Katrina Espino FNP [Nurse Practitioner] - 02/04/21 9:00 am Vianey Cordova MD [Physician] - 02/04/21 10:00 am Patient Instructions: Dizziness, Meclizine (By mouth), Acute Kidney Injury (DC), Hypotension (GEN) Discharge Attestations Time Spent in Discharge Care*: less than 30 min Quality Metrics Clinical Quality Measures During this hospital stay, did patient experience: None
== END 2021-01-22 15:07 | disposition home or self-care (01) ==
LOC: ER 12:35 → MEDSURG 15:53
PROVIDERS: Nurse Practitioner Family; Admitting Provider Student in an Organized Health Care Education/Training Program; Emergency Provider Family Medicine; PCP Family Medicine; Visit Provider Student in an Organized Health Care Education/Training Program
DX: I95.9 Hypotension, unspecified (principal); I48.20 Chronic atrial fibrillation, unspecified; R42 Dizziness and giddiness; E66.2 Morbid (severe) obesity with alveolar hypoventilation; Z68.41 Body mass index [BMI] 40.0-44.9, adult; Z79.01 Long term (current) use of anticoagulants; E11.42 Type 2 diabetes mellitus with diabetic polyneuropathy; E87.5 Hyperkalemia; N17.9 Acute kidney failure, unspecified; M19.90 Unspecified osteoarthritis, unspecified site; I50.9 Heart failure, unspecified; Z86.73 Personal history of transient ischemic attack (TIA), and cerebral infarction without residual deficits; E03.9 Hypothyroidism, unspecified; Z87.891 Personal history of nicotine dependence
CPT/HCPCS: 36415; 36416; 36600; 70450; 71045; 80051; 80053; 81003; 82330; 82805; 82962; 83036; 83880; 84443; 85025; 93005; 96360; 96361; 96372; 97116; 97161; 97530; 99285; G0378; J1815; J7040; J8597

== ENCOUNTER → 2021-02-02 14:01 | Outpatient (BNVA) | payer MEDICARE, MEDICAID, SELFPAY | PROVIDERS: PCP Family Medicine; Visit Provider Specialist | DX: R20.0 Anesthesia of skin (principal); G56.02 Carpal tunnel syndrome, left upper limb; Z87.891 Personal history of nicotine dependence | CPT/HCPCS: 95885; 95908 ==

== ENCOUNTER → 2021-02-04 10:01 | Outpatient (BNVA) | payer MEDICARE, MEDICAID, SELFPAY | PROVIDERS: PCP Family Medicine; Referring Provider Student in an Organized Health Care Education/Training Program; Visit Provider Internal Medicine | DX: E03.9 Hypothyroidism, unspecified (principal); E11.42 Type 2 diabetes mellitus with diabetic polyneuropathy | CPT/HCPCS: 99204 ==

== ENCOUNTER → 2021-03-06 11:26 | Outpatient (BNVA) | payer MEDICARE, MEDICAID, SELFPAY | PROVIDERS: PCP Family Medicine; Visit Provider Surgery | DX: Z01.812 Encounter for preprocedural laboratory examination (principal); Z20.822 Contact with and (suspected) exposure to COVID-19 | CPT/HCPCS: 87635 ==

== ENCOUNTER 2021-06-17 09:14 | Emergency (ER) | payer MEDICARE, MEDICAID, SELFPAY ==
[2021-06-17 09:46] VITALS: BP 125/61; PULSE 62; RESP 15; TEMP 36.9; O2SAT 95; BMI 42.8
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
--- NOTE | 2021-06-17 10:10 | XR_ITS ---
WS: [id number] Lumbar spine, 3 views, 06/17/2021 Clinical Data: fall with lumbar pain Comparison: None. Findings: No compression fractures or subluxation is seen. There is degenerative disc narrowing at L4-L5. There is minimal osteoarthritic change of the lower thoracic vertebral bodies and of L4 and L5. The transv erse processes and SI joints are normal. XR/XR lumbar spine 2-3V* 50664 Impression: 1. Negative for compression fracture. 2. Degenerative disc narrowing at L4-L5 with osteoarthritis at that level.
--- NOTE | 2021-06-17 10:10 | XR_ITS ---
WS: [id number] Right hip, AP and frog leg views, 06/17/2021 Clinical Data: fall with hip pain Comparison: None. Findings: No fractures or dislocations are seen. The hip joint is intact. The soft tissues are not remarkable. The adjacent pelvis is normal. There is an acetabular spur. XR/XR hip RT 2-3V wo/w pel* 39387 Impression: 1. Negative for right hip fracture. 2. Minimal osteoarthritis of the right hip. Tonnis classification: grade 1: sclerosis of femoral head and acetabulum or sli ght joint space narrowing or slight lipping at joint margins
--- NOTE | 2021-06-17 10:10 | XR_ITS ---
WS: [id number] Thoracic spine, 4 views, 06/17/2021 Clinical Data: fall with mid back pain Comparison: None. Findings: No compression fractures are seen. The disc heights are normal. There is diffuse osteoarthritis and osteoporosis. The paravertebral regions are normal. XR/XR thoracic spine 3V* 71832 Impression: Osteoporosis and osteoarthritis of the thoracic vertebral bodies
[2021-06-17 11:22] VITALS: RESP 18; O2SAT 97
[2021-06-17] MEDS: morphine 4 mg/mL SDV 1 mL IM (11:22)
[2021-06-17 11:45] VITALS: BP 114/71; PULSE 57; RESP 16; O2SAT 95
== END 2021-06-17 11:56 | disposition home or self-care (01) ==
PROVIDERS: Emergency Provider Physician Assistant; PCP Family Medicine
DX: M16.11 Unilateral primary osteoarthritis, right hip (principal); M47.815 Spondylosis without myelopathy or radiculopathy, thoracolumbar region; Z79.4 Long term (current) use of insulin; I11.0 Hypertensive heart disease with heart failure; I50.9 Heart failure, unspecified; E11.9 Type 2 diabetes mellitus without complications; Z86.73 Personal history of transient ischemic attack (TIA), and cerebral infarction without residual deficits; E78.5 Hyperlipidemia, unspecified; Z87.891 Personal history of nicotine dependence
CPT/HCPCS: 72072; 72100; 73502; 96372; 99283; J2270

== ENCOUNTER 2021-06-24 00:19 | Emergency (ER) | payer MEDICARE, MEDICAID, SELFPAY ==
[2021-06-24 00:34] VITALS: BP 136/72; PULSE 69; RESP 16; TEMP 36.1; O2SAT 95; BMI 43.4
[2021-06-24 01:12] LABS: Add Urine Microscopic? NO; Charge for UA Resulting for Rev
[2021-06-24 01:22] LABS: Bilirubin Urine Neg (Negative); Blood Urine Neg (Negative); Glucose Urine UA 4+ (Normal); Ketones Urine Negative (Negative); Leukocyte Esterase Urine Negative (Negative); Nitrate Urine Negative (Negative); Protein Urine Neg (Negative); Specific Gravity, Urine 1.005 (1.005-1.030); Urine Appearance Clear (CLEAR); Urine Color Yellow (Yellow); Urobilinogen Urine Norm (Negative); pH Urine 5 (5-7)
[2021-06-24 01:38] VITALS: BP 127/68; PULSE 74; TEMP 36.6; O2SAT 96
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
[2021-06-24 02:44] LABS: Basophils # 0.1 10^3/uL (0.0-0.1); Basophils % 0.7 %; Eosinophils # 0.1 10^3/uL (0.0-0.8); Eosinophils % 1.9 %; Hematocrit 50.1 % (42.0-52.0); Hemoglobin 15.2 g/dL (11.7-16.6); Lymphocytes # 1.4 10^3/uL (0.8-4.8); Mean Corpuscular HGB Conc 30.3 g/dL (30.0-36.0); Mean Corpuscular Hemoglobin 25.5 pg (28.0-34.0); Mean Corpuscular Volume 84.2 fL (80-94); Mean Platelet Volume 10.9 fL (7.4-10.4); Monocytes # 0.8 10^3/uL (0.2-0.9); Monocytes % 10.4 %; Neutrophils # 4.97 10^3/uL (1.8-7.7); Neutrophils % 67.5 %; Nucleated Red Blood Cells % 0 %; Platelet Count 223 10^3/cmm (130-400); Red Blood Count 5.95 10^6/uL (4.1-5.3); Red Cell Distribution Width 17.2 % (12.1-15.1); White Blood Count 7.4 10^3/uL (4.0-10.0)
[2021-06-24 03:05] LABS: Alanine Aminotransferase 18 U/L (0-41); Albumin Level 4.1 g/dL (3.5-5.2); Alkaline Phosphatase 95 IU/L (40-130); Anion Gap 17.5 (5-19); Aspartate Amino Transferase 17 U/L (0-40); Blood Urea Nitrogen 34 mg/dL (8-23); Calcium 8.9 mg/dL (8.5-10.5); Carbon Dioxide 24 mmol/L (22-29); Chloride 94 mmol/L (98-107); Globulin 3.6 g/dL (1.3-4.6); Glomerular Filtration Rate 67.2 mL/min (90-130); Glucose 369 mg/dL (65-115); Osmolality Calculated 295 mOsm/kg (285-295); Potassium 4.5 mmol/L (3.5-5.1); Sodium 131 mmol/L (136-145); Total Bilirubin 0.6 mg/dL (0.15-1.2); Total Protein 7.7 g/dL (6.6-8.7)
[2021-06-24 03:46] VITALS: BP 127/68; PULSE 74; RESP 18; O2SAT 96
== END 2021-06-24 03:40 | disposition home or self-care (01) ==
PROVIDERS: Emergency Medicine; Emergency Provider Physician Assistant
DX: M54.5 Low back pain (principal); I11.0 Hypertensive heart disease with heart failure; I50.9 Heart failure, unspecified; E11.65 Type 2 diabetes mellitus with hyperglycemia; I48.20 Chronic atrial fibrillation, unspecified; E78.5 Hyperlipidemia, unspecified; E03.9 Hypothyroidism, unspecified; E66.9 Obesity, unspecified; Z68.41 Body mass index [BMI] 40.0-44.9, adult; Z79.4 Long term (current) use of insulin; Z79.01 Long term (current) use of anticoagulants; Z87.891 Personal history of nicotine dependence
CPT/HCPCS: 80053; 81003; 85025; 99282

== ENCOUNTER → 2021-07-24 12:00 | Outpatient (BNVA) | payer MEDICARE, MEDICAID, SELFPAY | PROVIDERS: Visit Provider Surgery | DX: Z20.822 Contact with and (suspected) exposure to COVID-19 (principal); Z11.52 Encounter for screening for COVID-19 | CPT/HCPCS: 87635 ==

== ENCOUNTER → 2021-08-21 16:41 | Outpatient (BNVA) | payer MEDICARE, MEDICAID, SELFPAY | PROVIDERS: PCP Family Medicine; Visit Provider Surgery | DX: Z01.812 Encounter for preprocedural laboratory examination (principal); Z20.822 Contact with and (suspected) exposure to COVID-19 | CPT/HCPCS: 87635 ==

== ENCOUNTER 2021-08-26 08:24 | Day surgery (SDC) | payer MEDICARE, MEDICAID, SELFPAY ==
[2021-08-21 14:59] VITALS: BMI 44.0
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
[2021-08-26 09:46] VITALS: BP 141/86; PULSE 74; RESP 16; TEMP 36.1; O2SAT 96
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
[2021-08-26 10:52] LABS: Glucose Point of Care 178 mg/dL (70-110)
[2021-08-26] MEDS: sodium chloride 0.9% 1,000 ML 30 ML IV (10:53)
[2021-08-26 13:22] VITALS: BP 127/75; PULSE 77; RESP 16; TEMP 36.7; O2SAT 97
[2021-08-26 13:29] VITALS: BP 125/83; PULSE 65; RESP 16; O2SAT 96
--- NOTE | 2021-08-26 15:01 | ANE.PACU2 ---
Inpatient post-anesthesia follow up: Airway intact: Yes Vital signs: Temperature 98.1 F Pulse Rate 65 Respiratory Rate 16 Blood Pressure 125/83 Pulse Oximetry 96 Oxygen Delivery Me thod Room Air Oxygen Flow Rate Fraction of Inspir ed Oxygen Hydration adequate: Yes Nausea and vomiting: No Pain level: 1 Mental status: Baseline
== END 2021-08-26 13:40 | disposition home or self-care (01) ==
PROVIDERS: PCP Family Medicine; Visit Provider Surgery
PROC: 0DJD8ZZ Inspection of Lower Intestinal Tract, Via Natural or Artificial Opening Endoscopic (ICD-10-PCS; CPT 45378; principal; 2021-08-26 10:15)
DX: Z12.11 Encounter for screening for malignant neoplasm of colon (principal); Z79.01 Long term (current) use of anticoagulants; Z79.84 Long term (current) use of oral hypoglycemic drugs; Z79.4 Long term (current) use of insulin; M19.90 Unspecified osteoarthritis, unspecified site; E11.9 Type 2 diabetes mellitus without complications; I11.0 Hypertensive heart disease with heart failure; I50.9 Heart failure, unspecified; Z86.73 Personal history of transient ischemic attack (TIA), and cerebral infarction without residual deficits; E78.5 Hyperlipidemia, unspecified; E03.9 Hypothyroidism, unspecified; Z87.891 Personal history of nicotine dependence; I48.91 Unspecified atrial fibrillation; G47.30 Sleep apnea, unspecified
CPT/HCPCS: 36416; 82962; 96360; 96361; G0121; J2704; J7030

== ENCOUNTER → 2021-09-08 10:56 | Outpatient (BNVA) | payer MEDICARE, MEDICAID, SELFPAY | PROVIDERS: PCP Family Medicine; Visit Provider Internal Medicine | DX: E11.42 Type 2 diabetes mellitus with diabetic polyneuropathy (principal); E11.40 Type 2 diabetes mellitus with diabetic neuropathy, unspecified; E66.9 Obesity, unspecified; I73.9 Peripheral vascular disease, unspecified; Z79.4 Long term (current) use of insulin | CPT/HCPCS: 99214 ==

== ENCOUNTER → 2021-09-24 14:10 | Outpatient (BNVA) | payer MEDICARE, MEDICAID, SELFPAY | PROVIDERS: PCP Family Medicine; Visit Provider Nurse Practitioner Family | DX: N39.46 Mixed incontinence (principal); N40.1 Benign prostatic hyperplasia with lower urinary tract symptoms | CPT/HCPCS: 81003 ==

== ENCOUNTER 2021-10-12 08:39 | Outpatient (CLI) | payer MEDICARE, MEDICAID, SELFPAY ==
[2021-10-12 09:42] LABS: Basophils # 0.1 10^3/uL (0.0-0.1); Basophils % 0.8 %; Eosinophils # 0.2 10^3/uL (0.0-0.8); Eosinophils % 3.3 %; Hematocrit 50.3 % (42.0-52.0); Hemoglobin 15.4 g/dL (11.7-16.6); Lymphocytes # 1.1 10^3/uL (0.8-4.8); Lymphocytes % 16.9 %; Mean Corpuscular HGB Conc 30.6 g/dL (30.0-36.0); Mean Corpuscular Hemoglobin 26.3 pg (28.0-34.0); Mean Corpuscular Volume 85.8 fl (80-94); Mean Platelet Volume 10.5 fL (7.4-10.4); Monocytes # 0.6 10^3/uL (0.2-0.9); Monocytes % 8.6 %; Neutrophils # 4.61 10^3/uL (1.8-7.7); Neutrophils % 69.6 %; Nucleated Red Blood Cells % 0 %; Platelet Count 186 10^3/cmm (130-400); Red Blood Count 5.86 10^6/uL (4.1-5.3); Red Cell Distribution Width 16.1 % (12.1-15.1); White Blood Count 6.6 10^3/uL (4.0-10.0)
[2021-10-12 10:03] LABS: Alanine Aminotransferase 26 U/L (0-41); Albumin Level 4.1 g/dL (3.5-5.2); Alkaline Phosphatase 78 IU/L (40-130); Anion Gap 15.6 (5-19); Aspartate Amino Transferase 22 U/L (0-40); Blood Urea Nitrogen 23 mg/dL (8-23); Calcium 8.9 mg/dL (8.5-10.5); Carbon Dioxide 27 mmol/L (22-29); Chloride 102 mmol/L (98-107); Globulin 2.9 g/dL (1.3-4.6); Glomerular Filtration Rate 74.8 mL/min (90-130); Glucose 191 mg/dL (65-115); Osmolality Calculated 299 mOsm/kg (285-295); Potassium 4.6 mmol/L (3.5-5.1); Sodium 140 mmol/L (136-145); Total Bilirubin 0.3 mg/dL (0.15-1.2)
== END 2021-10-12 08:40 | disposition home or self-care (01) ==
LOC: ONCMED 08:43
PROVIDERS: PCP Family Medicine; Visit Provider Internal Medicine Medical Oncology
DX: D75.1 Secondary polycythemia (principal)
CPT/HCPCS: 36415; 80053; 85025

== ENCOUNTER 2021-10-13 06:41 | Outpatient (CLI) | payer MEDICARE, MEDICAID, SELFPAY ==
--- NOTE | 2021-10-13 09:03 | ONC FU_ITS ---
Dr. Petty Patient Follow-Up Note Patient: Everardo Londono Unit #: [id number]: 1955 Dicatated By: Landon Petty M.D.Date of Visit:Oct 13, 2021 Onc Med Follow-up/Prog Note Chief Complaint: Secondary polycythemia. History of Present Illness: This is a 66 year-old man with significantly elevated hemoglobin/hematocrit levels. His evaluation was consistent with secondary polycythemia. I had seen him initially on 12/02/2016 in regard to an elevated blood count. The available records included a CBC from 07/09/2016 which showed an elevated hemoglobin level at 17.9 g with hematocrit 58.8%. The WBC was 8200, and the platelet count was 145,000. The red cell indices were normal. A more recent CBC, from 10/15/2016 showed further increase in the hemoglobin to 19.2 g with hematocrit 61.7%. The WBC remained normal at 8700 with platelet count slightly low at 124,000. In reviewing his records in [facility], there were at least several previous blood counts which dated back to 2008. Most of these showed borderline high hemoglobin/hematocrit levels. However, in 2010 he actually was mildly anemic. In March 2011 he had an admission to the hospital for acute on chronic respiratory failure with hypoxia and hypercapnia. It was felt that he had a combination of obesity/hypoventilation syndrome and some restrictive airway disease. The record indicated a history of congestive heart failure. A CT pulmonary angiogram in April 2016 showed mild generalized pulmonary fibrosis. His subsequent evaluation revealed an erythropoietin level in the normal range at 38 mIU/mL. His serum iron studies show slightly low transferrin saturation at 18.9% with ferritin normal at 113 ng/mL. The JAK2 V617F and the LB 2 exon 12 mutation is were not detected. As such, he did appeared to have secondary polycythemia. At that time he had been receiving testosterone injections for androgen deficiency, and those were subsequently stopped. He had initially failed to return for followup. He then had admissions to the hospital for chest pain on 12/25/2016 and on 03/22/2017. With the latter admission his CBC showed hemoglobin 20.3 g with hematocrit 63%. The white blood cell count was 10,600 and the platelet count was 136,000. His chem profile showed BUN 17 and creatinine 1.2 mg/dL. Liver enzymes were normal. His echocardiogram showed moderate left ventricular hypertrophy with estimated left ventricular ejection fraction at 55%. The right atrial pressure was estimated at 5 mmHg. He has multiple medical illnesses including hypertension, hyperlipidemia, type II diabetes, hypothyroidism, peripheral neuropathy, pulmonary fibrosis, obesity/hypoventilation, and obstructive sleep apnea. He is on CPAP at home. He has had chronic back pain following a back injury about 15 years ago. He also has androgen deficiency. He has history of smoking 2 packs of cigarettes daily for 20 years, but he quit smoking approximately 2004. INTERIM HISTORY: I had seen him for a follow-up visit on 03/28/2017, and at that point he did start phlebotomies, initially at a weekly interval, later reduced to every 2 weeks. Those were stopped following his phlebotomy on 05/03/2017, as his hematocrit had subsequently had come down to under 50%. At his follow-up visit in May 2020 he had become mildly anemic with hemoglobin 11.8 g. At that point he was advised to start an oral iron supplement. His repeat CBC on 09/04/2020 showed hemoglobin back up to 14.6 g with hematocrit 51.8%. He is seen for a scheduled followup visit. He has been feeling pretty good generally. He still has limited activity, but he is able to do some light work. ECOG score is 1. His appetite has been okay. He says his blood sugar control has been better with addition of sliding scale insulin coverage. He has not had fever or night sweats. He does have some sinus drainage, occasionally with sore throat. He does not complain of cough. He says his breathing has been okay. He has not been having chest pain. He has no GI complaints other than he occasionally gets plugged up. Bladder function is not any better. He is seeing Dr. Wheat. He has been having quite a bit of arthritis pain, especially in the shoulders, elbows, and right hip. He does not complain of headache. He sometimes has dizziness. He has carpal tunnel symptoms in the left hand. He opted not to attempt surgery for it. Medications: Atorvastatin Calcium 1 Tablet (of 40 mg) Oral daily, B Complex 1 Tablet Oral daily, Bydureon Subcutaneous q 1 week, CeleXA 1 (10 mg) Tablet Oral daily, Cetirizine HCl 1 (10 mg) Tablet Oral daily, [facility] Fish Oil 1 Capsule (of 1200 mg) Oral daily, [facility] Vitamin E 1 (400 Units) Capsule Oral daily, Furosemide 1 Tablet (of 40 mg) Oral daily, GlipiZIDE 1 Tablet (of 10 mg) Oral b.i.d., Glyxambi 1 Tablet (of 25-5 mg) Oral daily, Hydrocodone-Acetaminophen 1 Tablet (of 7.5-325 mg) Oral q 4 hours PRN, Klor-Con M20 1 Tablet (of 20 meq) Tablet, controlled release Oral b.i.d., Levo-T 1 Tablet (of 125 mcg) Oral daily, Lisinopril 1 Tablet (of 10 mg) Oral daily, MetFORMIN HCl 1 (1000 mg) Tablet Oral b.i.d., Metoprolol Tartrate 1 (50 mg) Tablet Oral daily, Mexiletine HCl 1 Capsule (of 150 mg) Oral t.i.d., Xarelto 1 (20 mg) Tablet Oral daily Allergies: Bactrim, Penicillins, and Tetracycline HCl. Vital Signs: Physical Examination: Constitutional - He has limited mobility. He otherwise looks pretty good generally, Eyes - Sclerae nonicteric. Conjunctivae clear, ENMT - No lesions noted in the oral cavity, Hematologic/Lymphatic - No cervical, clavicular, or axillary adenopathy, Respiratory - Lungs sound clear with some decrease in air movement bilaterally, Cardiovascular - Heart rhythm is a little irregular. There is no murmur, gallop or rub noted, Abdomen - Distended. Liver and spleen are not enlarged. There is no abdominal mass or ascites noted and there is no inguinal adenopathy, Extremities - There are chronic venous stasis changes bilaterally. There is no edema, Integumentary - There is a small actinic lesion on the helix of the right ear, Neurologic - No focal neurologic deficits noted. Lab/Imaging: Test performed on Oct 12, 2021 08:55 Sodium 140 mmol/L Potassium 4.6 mmol/L Chloride 102 mmol/L CO2 27 mmol/L Anion Gap 15.6 BUN 23 mg/dL Creatinine 1.0 mg/dL Cr Clearance (Est) 145.6400 mL/min eGFR 74.8 mL/min Glucose 191 mg/dL Osmolality - Calculated 299 mOsm/kg Calcium 8.9 mg/dL Protein, Total 7.0 g/dL Albumin 4.1 g/dL Globulin 2.9 g/dL Bilirubin, Total 0.3 mg/dL ALT (SGPT) 26 U/L AST (SGOT) 22 U/L Alkaline Phosphatase 78 IU/L WBC 6.6 10 3/uL RBC 5.86 10 6/uL HGB 15.4 g/dL HCT 50.3 % MCV 85.8 fl MCH 26.3 pg MCHC 30.6 g/dL RDW 16.1 % Platelet Count 186 10 3/cmm MPV 10.5 fL Neutrophils 4.61 10 3/uL Lymphocytes 1.1 10 3/uL Monocytes 0.6 10 3/uL Eosinophils 0.2 10 3/uL Basophils 0.1 10 3/uL Neutrophil % 69.6 % Lymphocyte % 16.9 % Monocyte % 8.6 % Eosinophil % 3.3 % Basophils % 0.8 % NRBC % 0 % Problem List: 1. Secondary polycythemia. 2. Borderline low to mildly decreased platelet count. The cause/clinical significance is uncertain. 3. Hypertension. 4. Hyperlipidemia. 5. Type II diabetes with peripheral neuropathy. 6. Hypothyroidism. 7. Obesity/hypoventilation. 8. Obstructive sleep apnea. 9. There is CT evidence of mild, generalized pulmonary fibrosis. 10. Chronic back pain. 11. Androgen deficiency, previously on replacement therapy. Problems Addressed with this Encounter and Plan: Patient with moderately elevated hemoglobin/hematocrit levels. His laboratory evaluation in November 2016 was consistent with secondary polycythemia. He also had a borderline low to mildly decreased platelet count, cause/clinical significance uncertain. He was managed with phlebotomy as needed. As of May 2020 he had become mildly anemic, but that resolved with oral iron supplementation. His hemoglobin/hematocrit levels have since then remained within target range, and his overall clinical status has been stable. At this point he is recommended to just continue his regular follow-up with Dr. Burgos. Blood counts should be rechecked at 3 to 6-month intervals. He can be seen here again to restart phlebotomies if his blood count increases significantly, hemoglobin up to 18 g or higher and/or hematocrit 55% or higher. Signed By: Landon Petty M.D. <<Signature on File>>
== END 2021-10-13 06:42 | disposition home or self-care (01) ==
LOC: ONCMED 06:41
PROVIDERS: PCP Family Medicine; Visit Provider Internal Medicine Medical Oncology
DX: D75.1 Secondary polycythemia (principal); D69.1 Qualitative platelet defects; I10 Essential (primary) hypertension; E78.5 Hyperlipidemia, unspecified; E11.42 Type 2 diabetes mellitus with diabetic polyneuropathy; E03.9 Hypothyroidism, unspecified; E66.9 Obesity, unspecified; R06.89 Other abnormalities of breathing; G47.33 Obstructive sleep apnea (adult) (pediatric); J84.10 Pulmonary fibrosis, unspecified; M54.50 Low back pain, unspecified; G89.29 Other chronic pain; Z79.899 Other long term (current) drug therapy
CPT/HCPCS: 99214

== ENCOUNTER → 2021-11-11 13:55 | Outpatient (BNVA) | payer MEDICARE, MEDICAID, SELFPAY | PROVIDERS: PCP Family Medicine; Visit Provider Urology | DX: N40.1 Benign prostatic hyperplasia with lower urinary tract symptoms (principal); R35.89 Other polyuria | CPT/HCPCS: 81003 ==

== ENCOUNTER → 2021-12-07 09:45 | Outpatient (BNVA) | payer MEDICARE, MEDICAID, SELFPAY | PROVIDERS: PCP Family Medicine; Visit Provider Internal Medicine | DX: E11.40 Type 2 diabetes mellitus with diabetic neuropathy, unspecified (principal); E11.65 Type 2 diabetes mellitus with hyperglycemia; I73.9 Peripheral vascular disease, unspecified; E66.9 Obesity, unspecified; I50.9 Heart failure, unspecified; E78.2 Mixed hyperlipidemia; Z68.41 Body mass index [BMI] 40.0-44.9, adult; Z79.84 Long term (current) use of oral hypoglycemic drugs | CPT/HCPCS: 99214 ==

== ENCOUNTER → 2022-02-09 13:29 | Outpatient (BNVA) | payer MEDICARE, MEDICAID, SELFPAY | PROVIDERS: PCP Family Medicine; Visit Provider Urology | DX: N40.1 Benign prostatic hyperplasia with lower urinary tract symptoms (principal) | CPT/HCPCS: 81003 ==

== ENCOUNTER 2022-04-06 12:28 | Outpatient (CLI) | payer MEDICARE, MEDICAID, SELFPAY ==
--- NOTE | 2022-04-06 12:48 | XR_ITS ---
WS: [id number] Exam: XR lumbar spine 2-3V* [id number] Date/Time of Exam: 04/06/2022 12:53 PM Reason For Exam: ACUTE R SIDED LOW BACK PAIN W/O SCIATICA Comparison 06/17/2021. No fracture or dislocation. Degenerative vacuum disc at L4-5. Facet DJD at L4-5 and L5-S1. Mild spond ylosis. No change. XR/XR lumbar spine 2-3V* [id number] IMPRESSION: 1. Degenerative changes as detailed above. 2. No fracture or malalignment.
--- NOTE | 2022-04-06 12:57 | XR_ITS ---
WS: [id number] Exam: XR hip RT 2-3V wo/w pel* [id number] Date/Time of Exam: 04/06/2022 12:57 PM Reason For Exam: PAIN Comparison 06/17/2021. No fracture or dislocation. Mild DJD of the acetabulum. The joint compartments are relatively well ma intained. Normal soft tissues. XR/XR hip RT 2-3V wo/w pel* [id number] IMPRESSION: 1. Mild degenerative changes of the acetabulum. 2. No fracture or other significant finding.
== END 2022-04-06 12:29 | disposition home or self-care (01) ==
LOC: RAD 12:32
PROVIDERS: PCP Family Medicine; Visit Provider Nurse Practitioner Family
DX: M47.896 Other spondylosis, lumbar region (principal); M16.11 Unilateral primary osteoarthritis, right hip; M25.551 Pain in right hip; M54.50 Low back pain, unspecified
CPT/HCPCS: 72100; 73502

== ENCOUNTER → 2022-08-09 09:54 | Outpatient (BNVA) | payer MEDICARE, MEDICAID, SELFPAY | PROVIDERS: PCP Family Medicine; Visit Provider Internal Medicine Cardiovascular Disease | DX: R42 Dizziness and giddiness (principal); R55 Syncope and collapse; I48.91 Unspecified atrial fibrillation; I11.0 Hypertensive heart disease with heart failure; I50.30 Unspecified diastolic (congestive) heart failure | CPT/HCPCS: 93246; 99214 ==

== ENCOUNTER 2022-09-30 16:29 | Emergency (ER) | payer MEDICARE, MEDICAID, SELFPAY ==
[2022-09-30 16:48] VITALS: BMI 43.4
[2022-09-30 16:51] VITALS: BP 128/77; PULSE 63; RESP 18; TEMP 36.3; O2SAT 97
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
[2022-09-30] MEDS: clindamycin 150 mg Capsule 300 MG PO (18:05)
[2022-09-30] MEDS: lidocaine 1% INJ 20 mL MDV (mL) 3 ML INJECTION (18:06)
== END 2022-09-30 18:49 | disposition home or self-care (01) ==
PROVIDERS: Emergency Provider Nurse Practitioner Family; PCP Family Medicine
DX: S62.631B Displaced fracture of distal phalanx of left index finger, initial encounter for open fracture (principal); W31.89XA Contact with other specified machinery, initial encounter; I11.0 Hypertensive heart disease with heart failure; I50.9 Heart failure, unspecified; E11.9 Type 2 diabetes mellitus without complications; Z86.73 Personal history of transient ischemic attack (TIA), and cerebral infarction without residual deficits; E78.5 Hyperlipidemia, unspecified; Z79.84 Long term (current) use of oral hypoglycemic drugs; Z79.4 Long term (current) use of insulin
CPT/HCPCS: 12001; 73140; 99283

== ENCOUNTER 2022-10-06 06:45 | Outpatient (CLI) | payer MEDICARE, MEDICAID, SELFPAY ==
--- NOTE | 2022-10-06 07:15 | USCV_ITS ---
Everardo Londono Age: 67 Gender: M : 1955 Exam Date: 10/06/2022 07:16 Ordering Phys: Kathryn Rich MD ([email or web address]) Technologist: Karsten Carver [place] [facility] [place]: SOB, Heart failure BP: 110 / 64 HR: 60 Rhythm: Atrial fibrillation Technical Quality: Very technically difficult study MEASUREMENTS (Male / Female) Normal Values 2D ECHO LV Diastolic Diameter PLAX 4.6 cm 4.2 - 5.9 / 3.9 - 5.3 cm LV Systolic Diameter PLAX 3.4 cm IVS Diastolic Thickness 0.9 cm 0.6 - 1.0 / 0.6 - 0.9 cm IVS Systolic Thickness 1.1 cm LVPW Diastolic Thickness 1.2 cm 0.6 - 1.0 / 0.6 - 0.9 cm LVPW Systolic Thickness 1.8 cm LVOT Diameter 2.0 cm LV Ejection Fraction 2D Teich 50.9 % LV Ejection Fraction MOD 2C 46.3 % LV Ejection Fraction 2C AL 48.2 % LA Diameter 4.0 cm LA Width 3.6 cm LA Height 6.3 cm RA Width 4.1 cm RA Height 6.0 cm Aorta at Sinotubular Diameter 2.2 cm IVC Diameter 2.0 cm M-MODE Aortic Annulus Diameter 2.8 cm LA Ao Ratio MM 1.6 MV E Point Septal Separation 0.7 cm DOPPLER AV Peak Velocity 153.0 cm/s LVOT Peak Velocity 70.0 cm/s AV Area Cont Eq vti 1.4 cm squared AV Area Cont Eq pk 1.5 cm squared MV Peak Velocity 136.0 cm/s MV Area PHT 5.0 cm squared MV E' Velocity 69.0 cm/s TR Peak Velocity 302.9 cm/s TR Peak Gradient 36.7 mmHg TR Mean Velocity 229.9 cm/s TR Mean Gradient 24.5 mmHg TR Velocity Time Integral 87.5 cm Right Atrial Pressure 8.0 mmHg Pulmonary Artery Systolic Pressu 44.7 mmHg PV Peak Velocity 84.0 cm/s RV Acceleration Time 0.1 s RV Ejection Time 0.2 s RV AcT/ET 0.4 FINDINGS Left Ventricle Normal LV size with a slightly diminished ejection fraction of around 50%(visual). Study is of suboptimal quality because of poor ultrasonic windows. Echo contrast was not used because of the patient's history of allergy to contrast agents. Right Ventricle Possibly of normal size Right Atrium Appears to be mildly dilated Left Atrium Mildly increased left atrial size. Mitral Valve Thickened mitral valve. Trace to mild mitral valve regurgitation. Aortic Valve No gross abnormalities noted Tricuspid Valve Trace tricuspid valve regurgitation. Estimated pulmonary artery peak systolic pressure 45 mmHg Pulmonic Valve Pulmonic valve not well visualized. Pericardium Normal pericardium without effusion. Aorta Normal aortic annulus size. IVC Normal IVC dimension with <50% respiratory change of the inferior vena cava. CONCLUSIONS Normal LV size with a slightly diminished ejection fraction of around 50%(visual). Mild biatrial enlargementThickened mitral valve. Trace to mild mitral valve regurgitation. Trace tricuspid valve regurgitation. Mild pulmonary hypertension with an estimated pulmonary artery peak systolic pressure of 45 mmHg There is no pericardial effusion. Echo contrast was not used because of the patient's history of allergy to contrast agents. Study is of suboptimal quality because of poor ultrasonic windows. Dr John Rodney MD FAC (Electronically Signed) Final Date: 07 October 2022 07:56 S
== END 2022-10-06 06:46 | disposition home or self-care (01) ==
LOC: RAD 06:48
PROVIDERS: PCP Family Medicine; Visit Provider Internal Medicine Cardiovascular Disease
DX: I08.1 Rheumatic disorders of both mitral and tricuspid valves (principal); R06.02 Shortness of breath; I50.9 Heart failure, unspecified
CPT/HCPCS: 93306

== ENCOUNTER → 2023-03-28 07:58 | Outpatient (BNVA) | payer MEDICARE, MEDICAID, SELFPAY | PROVIDERS: PCP Family Medicine; Visit Provider Thoracic Surgery (Cardiothoracic Vascular Surgery) | DX: E11.622 Type 2 diabetes mellitus with other skin ulcer (principal); I87.2 Venous insufficiency (chronic) (peripheral); I96 Gangrene, not elsewhere classified; L97.812 Non-pressure chronic ulcer of other part of right lower leg with fat layer exposed | CPT/HCPCS: 97597; 99213; A6021 ==

== ENCOUNTER → 2023-04-04 08:47 | Outpatient (BNVA) | payer MEDICARE, MEDICAID, SELFPAY | PROVIDERS: PCP Family Medicine; Visit Provider Thoracic Surgery (Cardiothoracic Vascular Surgery) | DX: Z09 Encounter for follow-up examination after completed treatment for conditions other than malignant neoplasm (principal); Z87.2 Personal history of diseases of the skin and subcutaneous tissue | CPT/HCPCS: 99212 ==

== ENCOUNTER 2023-04-08 14:53 | Emergency (ER) | payer MEDICARE, MEDICAID, SELFPAY ==
[2023-04-08 15:05] VITALS: BP 123/63; PULSE 70; RESP 18; TEMP 36.6; O2SAT 94; BMI 44.7
[2023-04-08 15:27] LABS: Add Urine Microscopic? NO; Charge for UA Resulting for Rev
[2023-04-08 16:00] LABS: Bilirubin Urine Neg (Negative); Blood Urine Neg (Negative); Glucose Urine UA Norm (Normal); Ketones Urine Negative (Negative); Leukocyte Esterase Urine Negative (Negative); Nitrate Urine Negative (Negative); Protein Urine Neg (Negative); Specific Gravity, Urine 1.015 (1.005-1.030); Urine Appearance Clear (CLEAR); Urine Color Yellow (Yellow); Urobilinogen Urine Norm (Negative); pH Urine 5 (5-7)
[2023-04-08 16:38] VITALS: BP 116/66; PULSE 75; RESP 17; TEMP 36.6; O2SAT 94
[2023-04-08 17:30] VITALS: BP 122/67; PULSE 68; RESP 17; TEMP 36.8; O2SAT 94
--- NOTE | 2023-04-08 18:10 | CTR_ITS ---
PROCEDURE INFORMATION: Exam: CT Head Without Contrast Exam date and time: 04/08/2023 6:21 PM Age: 67 years old Clinical indication: Dizziness and weakness, extremity; Bilateral TECHNIQUE: Imaging protocol: Computed tomography of the head without contrast. Radiation optimization: All CT scans at this facility use at least one of these dose optimization techniques: automated exposure control; mA and/or kV adjustment per patient size (includes targeted exams where dose is matched to clinical indication); or iterative reconstruction. REPORTING DATA: Count of CT and Cardiac NM exams in prior 12 months: This patient has received 0 known CTs and 0 known cardiac nuclear medicine studies in the 12 months prior to the current study. COMPARISON: CT head wo con* [id number] 01/20/2021 6:48 PM RADIATION DOSE METRICS: Total DLP (mGy-cm): 1256.59 FINDINGS: Brain: Moderate diffuse white matter disease likely reflecting chronic microvascular ischemic changes. Cerebral ventricles: No ventriculomegaly. Paranasal sinuses: Visualized sinuses are unremarkable. No fluid levels. Mastoid air cells: Visualized mastoid air cells are well aerated. Bones/joints: Unremarkable. No acute fracture. Soft tissues: Unremarkable. CT/CT head wo con* [id number] IMPRESSION: 1. Negative for intracranial hemorrhage or mass effect. 2. Moderate diffuse white matter disease likely reflecting chronic microvascular ischemic changes.
--- NOTE | 2023-04-08 18:10 | XRR_ITS ---
PROCEDURE INFORMATION: Exam: XR Chest Exam date and time: 04/08/2023 6:58 PM Age: 67 years old Clinical indication: Other: Weakness TECHNIQUE: Imaging protocol: Radiologic exam of the chest. Views: 1 view. COMPARISON: CR XR chest 1V portable [id number] 01/20/2021 12:06 PM FINDINGS: Lungs: Right hilar to lower lobe atelectasis versus minimal infiltrate. Pleural spaces: Unremarkable. No pleural effusion. No pneumothorax. Heart/Mediastinum: Cardiomegaly. Bones/joints: Unremarkable. XR/XR chest 1V portable [id number] IMPRESSION: 1. Cardiomegaly. 2. Right hilar to lower lobe atelectasis versus minimal infiltrate.
[2023-04-08 18:17] VITALS: BP 127/74; PULSE 58; O2SAT 97
[2023-04-08] MEDS: sodium chloride 0.9% 500 ML IV (18:54)
--- NOTE | 2023-04-08 19:03 | ECG_ITS ---
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 Measurements Intervals [place] Rate: 57 P: 115 LA: 226 QRS: -58 QRSD: 103 T: 41 QT: 421 QTc: 411 Interpretive Statements ELECTRONIC ATRIAL PACEMAKER LEFT AXIS DEVIATION [QRS AXIS < -30] ANTEROSEPTAL MYOCARDIAL INFARCTION , PROBABLY OLD [40+ ms Q WAVE IN V1-V4] Compared to ECG 01/20/2021 12:35:00 Atrial fibrillation no longer present Myocardial infarct finding still present Electronically Signed On 04-09-2023 6:52:20 CDT by Chintan Iglesias M.D. [email or web address]
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
[2023-04-08 19:25] LABS: Basophils % 0.5 %; Eosinophils # 0.2 10^3/uL (0.0-0.8); Eosinophils % 2.8 %; Hematocrit 45.1 % (42.0-52.0); Hemoglobin 13.7 g/dL (11.7-16.6); Lymphocytes # 1.3 10^3/uL (0.8-4.8); Lymphocytes % 15.6 %; Mean Corpuscular HGB Conc 30.4 g/dL (30.0-36.0); Mean Corpuscular Volume 92.2 fl (80-94); Mean Platelet Volume 10.6 fL (7.4-10.4); Monocytes # 0.7 10^3/uL (0.2-0.9); Neutrophils # 5.86 10^3/uL (1.8-7.7); Neutrophils % 71.6 %; Nucleated Red Blood Cells % 0 %; Platelet Count 167 10^3/cmm (130-400); Red Blood Count 4.89 10^6/uL (4.1-5.3); White Blood Count 8.2 10^3/uL (4.0-10.0)
[2023-04-08 19:28] LABS: INR 1.01 (0.8-1.2)
[2023-04-08 19:47] LABS: Alanine Aminotransferase 23 U/L (0-41); Alkaline Phosphatase 76 U/L (40-130); Anion Gap 15.4 (5-19); Aspartate Amino Transferase 19 U/L (0-40); Blood Urea Nitrogen 28 mg/dL (8-23); Calcium 8.7 mg/dL (8.5-10.5); Carbon Dioxide 27 mmol/L (22-29); Chloride 102 mmol/L (98-107); Globulin 3.1 g/dL (1.3-4.6); Glomerular Filtration Rate 60.4 mL/min (90-130); Glucose 136 mg/dL (65-115); Magnesium 2.4 mg/dL (1.7-2.3); Osmolality Calculated 298 mOsm/kg (285-295); Potassium 4.4 mmol/L (3.5-5.1); Sodium 140 mmol/L (136-145); Thyroid Stimulating Hormone 1.65 uIU/mL (0.27-4.20); Total Bilirubin 0.3 mg/dL (0.15-1.2); Total Protein 7.1 g/dL (6.6-8.7)
[2023-04-08 20:09] VITALS: BP 126/66; PULSE 66; RESP 16; O2SAT 95
== END 2023-04-08 20:07 | disposition home or self-care (01) ==
PROVIDERS: Emergency Medicine; Emergency Provider Emergency Medicine; PCP Family Medicine
DX: R53.1 Weakness (principal); Z79.4 Long term (current) use of insulin; Z79.84 Long term (current) use of oral hypoglycemic drugs; I11.0 Hypertensive heart disease with heart failure; I50.9 Heart failure, unspecified; E11.9 Type 2 diabetes mellitus without complications; Z86.73 Personal history of transient ischemic attack (TIA), and cerebral infarction without residual deficits; E78.5 Hyperlipidemia, unspecified
CPT/HCPCS: 70450; 71045; 80053; 81003; 83735; 84443; 85025; 85610; 93005; 96365; 99285; J7040

== ENCOUNTER → 2023-05-09 10:36 | Outpatient (BNVA) | payer MEDICARE, MEDICAID, SELFPAY | PROVIDERS: PCP Family Medicine; Visit Provider Internal Medicine Cardiovascular Disease | DX: R42 Dizziness and giddiness (principal); I11.0 Hypertensive heart disease with heart failure; I50.20 Unspecified systolic (congestive) heart failure | CPT/HCPCS: 99214 ==

== ENCOUNTER → 2024-02-14 10:53 | Outpatient (BNVA) | payer MEDICAID, SELFPAY | PROVIDERS: PCP Family Medicine; Visit Provider Podiatrist Foot & Ankle Surgery | DX: M25.571 Pain in right ankle and joints of right foot (principal); E11.42 Type 2 diabetes mellitus with diabetic polyneuropathy; M19.171 Post-traumatic osteoarthritis, right ankle and foot; M21.371 Foot drop, right foot; G62.9 Polyneuropathy, unspecified; Z79.4 Long term (current) use of insulin; Z79.84 Long term (current) use of oral hypoglycemic drugs | CPT/HCPCS: 73610; 99203 ==

== ENCOUNTER → 2024-03-12 10:02 | Outpatient (BNVA) | payer MEDICARE, MEDICAID, SELFPAY | PROVIDERS: PCP Family Medicine; Referring Provider Family Medicine; Visit Provider Nurse Practitioner Family | DX: I50.32 Chronic diastolic (congestive) heart failure (principal); I15.8 Other secondary hypertension; I48.20 Chronic atrial fibrillation, unspecified; Z79.01 Long term (current) use of anticoagulants; Z79.82 Long term (current) use of aspirin | CPT/HCPCS: 99214 ==

== ENCOUNTER → 2024-04-17 10:56 | Outpatient (BNVA) | payer MEDICARE, MEDICAID, SELFPAY | PROVIDERS: PCP Family Medicine; Visit Provider Podiatrist Foot & Ankle Surgery | DX: L60.3 Nail dystrophy (principal); E11.42 Type 2 diabetes mellitus with diabetic polyneuropathy; M21.371 Foot drop, right foot; G62.9 Polyneuropathy, unspecified; Z79.4 Long term (current) use of insulin; Z79.84 Long term (current) use of oral hypoglycemic drugs | CPT/HCPCS: 11721 ==

== ENCOUNTER → 2024-06-19 10:32 | Outpatient (BNVA) | payer MEDICARE, MEDICAID, SELFPAY | PROVIDERS: PCP Family Medicine; Visit Provider Podiatrist Foot & Ankle Surgery | DX: L60.3 Nail dystrophy (principal); E11.42 Type 2 diabetes mellitus with diabetic polyneuropathy; M21.371 Foot drop, right foot; G62.9 Polyneuropathy, unspecified; L03.031 Cellulitis of right toe; Z79.4 Long term (current) use of insulin; Z79.84 Long term (current) use of oral hypoglycemic drugs | CPT/HCPCS: 11721; 99213 ==

== ENCOUNTER 2024-06-26 09:12 | Outpatient (RCR) | payer MEDICARE, MEDICAID, SELFPAY | END 2024-07-14 23:59 | disposition home or self-care (01) | LOC: SPT 09:12 | PROVIDERS: PCP Family Medicine | DX: M50.30 Other cervical disc degeneration, unspecified cervical region (principal) | CPT/HCPCS: 97161 ==

== ENCOUNTER 2024-08-05 13:48 | Emergency (ER) | payer MEDICARE, MEDICAID, SELFPAY ==
--- NOTE | 2024-08-05 13:53 | ECG_ITS ---
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 Measurements Intervals [place] Rate: 64 P: 0 WA: 0 QRS: 258 QRSD: 110 T: 55 QT: 419 QTc: 433 Interpretive Statements ATRIAL FIBRILLATION WITH ABERRANT CONDUCTION OR VENTRICULAR PREMATURE COMPLEXES INDETERMINATE AXIS LOW QRS VOLTAGE IN PRECORDIAL LEADS [QRS DEFLECTION < 1.0 mV IN CHEST LEADS] POSSIBLE ANTERIOR MYOCARDIAL INFARCTION , PROBABLY OLD [30 ms Q WAVE IN V3/V4, OR R < 0.2 mV IN V4] Compared to ECG 04/08/2023 19:03:58 Ventricular premature complex(es) now present Aberrant conduction of supraventricular beat(s) now present Indeterminate axis now present. Low QRS voltage now present Atrial-paced complex(es) or rhythm no longer present Left-axis deviation no longer present. Myocardial infarct finding still present Electronically Signed On 08-05-2024 19:23:02 CDT by John Rodney M.D. [email or web address]
--- NOTE | 2024-08-05 13:56 | XRR_ITS ---
PROCEDURE INFORMATION: Exam: XR Chest Exam date and time: 08/05/2024 2:12 PM Age: 69 years old Clinical indication: Dyspnea TECHNIQUE: Imaging protocol: Radiologic exam of the chest. Views: 1 view. COMPARISON: CR XR chest 1V portable [id number] 04/08/2023 6:58 PM FINDINGS: Lungs: Unremarkable. No consolidation. Pleural spaces: Unremarkable. No pleural effusion. No pneumothorax. Heart/Mediastinum: Unremarkable. No cardiomegaly. Bones/joints: Unremarkable. XR/XR chest 1V portable [id number] IMPRESSION: No acute findings.
[2024-08-05 14:00] VITALS: BP 146/74; PULSE 64; RESP 18; TEMP 36.9; O2SAT 92
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
[2024-08-05 14:32] LABS: Basophils # 0.1 10^3/uL (0.0-0.1); Basophils % 0.7 %; Eosinophils # 0.2 10^3/uL (0.0-0.8); Eosinophils % 2.6 %; Hematocrit 43.8 % (37-53); Lymphocytes % 13.3 %; Mean Corpuscular HGB Conc 30.1 g/dL (30-55); Mean Corpuscular Hemoglobin 25.9 pg (27-33); Mean Corpuscular Volume 85.9 fl (82-101); Mean Platelet Volume 10.3 fL (7.4-10.4); Monocytes # 0.6 10^3/uL (0.2-0.9); Monocytes % 8.4 %; Neutrophils # 5.49 10^3/uL (1.8-7.7); Neutrophils % 74.7 %; Nucleated Red Blood Cells % 0 %; Platelet Count 161 10^3/cmm (157-399); Red Cell Distribution Width 17.5 % (12.1-15.1); White Blood Count 7.35 10^3/uL (3.29-11.43)
[2024-08-05 14:34] VITALS: PULSE 59; RESP 18; O2SAT 89
[2024-08-05 14:47] LABS: Troponin(5th) Baseline 22 ng/L (0-15)
[2024-08-05 14:48] LABS: Lactic Sepsis W/Reflex 1.1 mmol/L (0.5-2.2)
[2024-08-05 14:57] LABS: Alanine Aminotransferase 17 U/L (0-41); Albumin Level 3.9 g/dL (3.5-5.2); Alkaline Phosphatase 67 U/L (40-130); Anion Gap 14.2 (5-19); Aspartate Amino Transferase 18 U/L (0-40); Blood Urea Nitrogen 21 mg/dL (8-23); Carbon Dioxide 27 mmol/L (22-29); Chloride 100 mmol/L (98-107); Creatinine Clr Calc Pharmacy 114.6299; Globulin 3.1 g/dL (1.3-4.6); Glomerular Filtration Rate 83.7 mL/min (90-130); Glucose 145 mg/dL (65-115); NT Pro B Type Natriuretic Pept 990 pg/mL (0-125); Osmolality Calculated 290 mOsm/kg (285-295); Potassium 4.2 mmol/L (3.5-5.1); Sodium 137 mmol/L (136-145); Total Bilirubin 0.7 mg/dL (0.15-1.2)
[2024-08-05 15:04] VITALS: PULSE 55; RESP 22; O2SAT 84
[2024-08-05 15:32] LABS: ABG PCO2 45.1 mmHg (35-45); ABG PH Result 7.41 (7.35-7.45); Arterial Blood Gas Hematocrit 40.9 % (42-52); Blood Gas Allen Test Pos; Blood Gas Operator Identificat CAK; Blood Gas Sample Site Brachial, left; Blood Gas Sample Type Arterial; Carboxyhemoglobin 1.6 %THgb (0.4-20.1); HCO3 ABG 28.3 mmol/L (22-26); HGB O2 Sat 89.3 % (95-100); Ionized Calcium Level - ABG 1.2 mmol/L (1.1-1.4); Methemoglobin 0.8 % (0.4-1.5); Oxygen Device ROOM AIR; Oxygen Saturation ABG 91.4; PO2 ABG 62.6 mmHg (80.0-100.0); PO2 FiO2 Ratio Arterial Blood 298; Potassium Level - ABG 4.2 mmol/L (3.5-5.0); Total Hemoglobin 13.3 g/dL (14-18)
[2024-08-05 15:34] VITALS: PULSE 56; RESP 22; O2SAT 91
[2024-08-05 15:53] LABS: Covid PCR NEGATIVE (Negative); Influenza A NEGATIVE (Negative); Influenza B NEGATIVE (Negative); Respiratory Syncytial Virus Ce NEGATIVE (Negative)
[2024-08-05] MEDS: FUROsemide 10 mg/mL SDV 10mL 80 MG IVP (15:54)
[2024-08-05 16:04] VITALS: BP 145/70; PULSE 54; O2SAT 93
[2024-08-05 16:40] LABS: Troponin 5 2HR 26.23 ng/L (0-15); Troponin 5 2HR Delta 4.23 ABS# (0-10)
--- NOTE | 2024-08-05 16:51 | ECG_ITS ---
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 Measurements Intervals [place] Rate: 57 P: 0 MI: 0 QRS: -70 QRSD: 94 T: 130 QT: 393 QTc: 383 Interpretive Statements ATRIAL FIBRILLATION WITH SLOW VENTRICULAR RESPONSE WITH ABERRANT CONDUCTION OR VENTRICULAR PREMATURE COMPLEXES LOW QRS VOLTAGE IN PRECORDIAL LEADS [QRS DEFLECTION < 1.0 mV IN CHEST LEADS] INFERIOR MYOCARDIAL INFARCTION , PROBABLY OLD [40+ ms Q WAVE AND/OR ST/T ABNORMALITY IN II/aVF] ANTEROSEPTAL MYOCARDIAL INFARCTION , PROBABLY OLD [40+ ms Q WAVE IN V1-V4] Compared to ECG 08/05/2024 13:56:35 Indeterminate axis no longer present Myocardial infarct finding still present Electronically Signed On 08-05-2024 19:29:44 CDT by John Rodney M.D. [id number]
[2024-08-05 17:24] VITALS: BP 146/74; PULSE 68; O2SAT 90
== END 2024-08-05 17:25 | disposition home or self-care (01) ==
PROVIDERS: Emergency Medicine; Emergency Provider Emergency Medicine; PCP Family Medicine
DX: I11.0 Hypertensive heart disease with heart failure (principal); I50.32 Chronic diastolic (congestive) heart failure; Z79.4 Long term (current) use of insulin; Z79.82 Long term (current) use of aspirin; Z79.84 Long term (current) use of oral hypoglycemic drugs; I48.91 Unspecified atrial fibrillation; Z86.73 Personal history of transient ischemic attack (TIA), and cerebral infarction without residual deficits; E11.9 Type 2 diabetes mellitus without complications; E78.5 Hyperlipidemia, unspecified
CPT/HCPCS: 0241U; 36415; 36600; 71045; 80051; 80053; 82330; 82805; 83605; 83880; 84484; 85025; 93005; 96374; 99285; J1940

== ENCOUNTER → 2024-08-23 12:03 | Outpatient (BNVA) | payer MEDICARE, MEDICAID, SELFPAY | PROVIDERS: PCP Family Medicine; Visit Provider Podiatrist Foot & Ankle Surgery | DX: L60.3 Nail dystrophy (principal); E11.42 Type 2 diabetes mellitus with diabetic polyneuropathy; M21.371 Foot drop, right foot; G62.9 Polyneuropathy, unspecified; Z79.4 Long term (current) use of insulin; Z79.84 Long term (current) use of oral hypoglycemic drugs | CPT/HCPCS: 11721 ==

== ENCOUNTER → 2024-10-25 13:57 | Outpatient (BNVA) | payer MEDICARE, MEDICAID, SELFPAY | PROVIDERS: PCP Family Medicine; Visit Provider Podiatrist Foot & Ankle Surgery | DX: L60.3 Nail dystrophy (principal); E11.42 Type 2 diabetes mellitus with diabetic polyneuropathy; M21.371 Foot drop, right foot; G62.9 Polyneuropathy, unspecified; L84 Corns and callosities; Z79.4 Long term (current) use of insulin; Z79.84 Long term (current) use of oral hypoglycemic drugs | CPT/HCPCS: 11056; 11721 ==

== ENCOUNTER → 2025-01-30 12:42 | Outpatient (BNVA) | payer MEDICARE, MEDICAID, SELFPAY | PROVIDERS: PCP Family Medicine; Visit Provider Podiatrist Foot & Ankle Surgery | DX: E11.42 Type 2 diabetes mellitus with diabetic polyneuropathy (principal); L60.3 Nail dystrophy; L84 Corns and callosities; M21.371 Foot drop, right foot; G62.9 Polyneuropathy, unspecified; L03.032 Cellulitis of left toe; Z79.4 Long term (current) use of insulin; Z79.84 Long term (current) use of oral hypoglycemic drugs | CPT/HCPCS: 11056; 11721; 11730 ==

== ENCOUNTER → 2025-02-05 08:29 | Outpatient (BNVA) | payer MEDICARE, MEDICAID, SELFPAY | PROVIDERS: PCP Family Medicine; Visit Provider Orthopaedic Surgery | DX: M54.2 Cervicalgia (principal) | CPT/HCPCS: 72050; 99203 ==

== ENCOUNTER 2025-02-19 10:54 | Outpatient (CLI) | payer MEDICARE, MEDICAID, SELFPAY ==
--- NOTE | 2025-02-19 11:00 | MR_ITS ---
WS: [id number] MRI CERVICAL SPINE NONCONTRAST HISTORY: cervical pain, fall several months ago. COMPARISON: Radiographs 02/05/2025 Technique: Multiplanar, multisequence noncontrast imaging of the cervical spine. Straightening of the normal cervical lordosis. C3 anterolisthesis by 2.7 mm. Disc spaces are mildly narrowed and desiccated, most significant at C6-7. No vertebral body marrow edema. There is marrow edema in the RIGHT C3 articular facet. There is edema within the interspinous ligaments and surrounding the C3 facet joint. It is difficult to tell exactly where the inferior articular process terminates. There may be slight subluxation and perching of the facet on the RIGHT at C3-4. Signal within the cervical cord is normal. Visualized posterior fossa is unremarkable. Craniocervical junction, C1 and C2 relationship, odontoid process and soft tissues are normal. C2-C3: Small foraminal osteophytes. No stenosis. C3-C4: Significant amount of edema surrounding the C3-4 facet joint and within the interspinous ligaments. Annular disc bulging. Mild central and foraminal stenosis. C4-C5: Normal. C5-C6: Normal. C6-C7: Mild annular disc bulging and small osteophytes. Mild central and bilateral foraminal stenosis. C7-T1: Normal. No cervical chain lymph nodes. SI joint arthritis. MR/MR cervical spin wo con* [id number] IMPRESSION: 1. No acute vertebral body fracture. 2. C3 anterolisthesis by 2.7 mm. 3. Focal marrow edema in the RIGHT C3 articular facet with surrounding intrasp inous ligament edema. There may be very slight subluxation and perching of the RIGHT facet joint. Recommend follow-up cervical spine CT. 4. No signal abnormality within the cord. Notified Colton Chávez DO at 02/19/2025 11:58 AM. Message left with the [email or web address] answering service at the office.
== END 2025-02-19 10:55 | disposition home or self-care (01) ==
PROVIDERS: PCP Family Medicine; Visit Provider Orthopaedic Surgery
DX: M48.02 Spinal stenosis, cervical region (principal); M43.12 Spondylolisthesis, cervical region; R93.7 Abnormal findings on diagnostic imaging of other parts of musculoskeletal system; M50.323 Other cervical disc degeneration at C6-C7 level; M25.78 Osteophyte, vertebrae; M50.31 Other cervical disc degeneration, high cervical region; M46.1 Sacroiliitis, not elsewhere classified
CPT/HCPCS: 72141

== ENCOUNTER → 2025-02-28 13:58 | Outpatient (BNVA) | payer MEDICARE, MEDICAID, SELFPAY | PROVIDERS: PCP Family Medicine; Visit Provider Orthopaedic Surgery | DX: M47.22 Other spondylosis with radiculopathy, cervical region (principal) | CPT/HCPCS: 99214 ==

== ENCOUNTER → 2025-03-05 14:55 | Outpatient (BNVA) | payer MEDICARE, MEDICAID, SELFPAY | PROVIDERS: PCP Family Medicine; Visit Provider Nurse Practitioner Family | DX: M47.22 Other spondylosis with radiculopathy, cervical region (principal); Z87.891 Personal history of nicotine dependence | CPT/HCPCS: 99214 ==

== ENCOUNTER → 2025-03-11 13:50 | Outpatient (BNVA) | payer MEDICARE, MEDICAID, SELFPAY | PROVIDERS: PCP Family Medicine; Visit Provider Nurse Practitioner Family | DX: M47.22 Other spondylosis with radiculopathy, cervical region (principal); M54.2 Cervicalgia | CPT/HCPCS: 20553; 99214; J1010; J3490 ==

== ENCOUNTER → 2025-03-25 13:37 | Outpatient (BNVA) | payer MEDICARE, MEDICAID, SELFPAY | PROVIDERS: PCP Family Medicine; Visit Provider Nurse Practitioner Family | DX: M54.2 Cervicalgia (principal); M47.22 Other spondylosis with radiculopathy, cervical region | CPT/HCPCS: 99214 ==

== ENCOUNTER → 2025-04-03 13:07 | Outpatient (BNVA) | payer MEDICARE, MEDICAID, SELFPAY | PROVIDERS: PCP Family Medicine; Visit Provider Podiatrist Foot & Ankle Surgery | DX: E11.42 Type 2 diabetes mellitus with diabetic polyneuropathy (principal); L60.3 Nail dystrophy; L84 Corns and callosities; M21.371 Foot drop, right foot; G62.9 Polyneuropathy, unspecified; M20.41 Other hammer toe(s) (acquired), right foot; M20.42 Other hammer toe(s) (acquired), left foot; Z79.4 Long term (current) use of insulin; Z79.84 Long term (current) use of oral hypoglycemic drugs | CPT/HCPCS: 11056; 11721; 99213 ==

== ENCOUNTER → 2025-04-11 12:18 | Outpatient (BNVA) | payer MEDICARE, MEDICAID, SELFPAY | PROVIDERS: PCP Family Medicine; Visit Provider Internal Medicine | DX: I48.20 Chronic atrial fibrillation, unspecified (principal); E11.65 Type 2 diabetes mellitus with hyperglycemia; I11.0 Hypertensive heart disease with heart failure; I50.32 Chronic diastolic (congestive) heart failure; G47.33 Obstructive sleep apnea (adult) (pediatric); E66.9 Obesity, unspecified; Z68.42 Body mass index [BMI] 45.0-49.9, adult; Z79.01 Long term (current) use of anticoagulants; Z79.4 Long term (current) use of insulin; Z87.891 Personal history of nicotine dependence | CPT/HCPCS: 99214 ==

== ENCOUNTER 2025-04-16 09:23 | Outpatient (RCR) | payer MEDICARE, MEDICAID, SELFPAY | END 2025-05-13 23:59 | disposition home or self-care (01) | LOC: SPT 09:23 | PROVIDERS: PCP Family Medicine; Visit Provider Nurse Practitioner Family | DX: M47.22 Other spondylosis with radiculopathy, cervical region (principal) | CPT/HCPCS: 97110; 97161 ==

== ENCOUNTER 2025-05-10 12:03 | Emergency (ER) | payer MEDICARE, MEDICAID, SELFPAY ==
--- OUTSIDE RECORDS SUMMARY | 2025-05-07 14:40 | XMS_ITS | Encounter Summary ---
Author Organization [facility] Address [address] [place] [address] Care Team Providers Care Administrative Hearing Officer Name Role Phone Kelsey Burgos DO Primary Care Provider [phone]- [phone] Reason for Referral * Eval and Treat (Routine) - Pending Review Specialty Diagnoses / Procedures Referred By Ruben t Referred To Contact Wound Care Diagnoses Wound of right leg, initial encounter Wound of left lower extremity, initial encounter Procedures RI OFFICE/OUTPATIENT ESTABLISHED MOD MDM 30 MIN RI OFFICE/OUTPATIENT NEW MODERATE MDM 45 MINUTES Lety SavannahDANNY [address] [place] [address] Phone: tel: fax: [place] [address] [place] [address] Phone: tel: fax: Referral ID Status Reason Start Date Expiration Date V isits Requested Visits Authorized [id number] Pending Review 05/07/2025 05/07/2026 1 1 Reason for Visit * Reason Comments Chronic Conditions Coordination Follow Up Ongoing issues with legs Encounter Details Date Type Department Care Team (Late st Contact Info) Description 05/07/2025 2:40 PM CDT Office Visit [facility] [place] [address] [place] [address] Savannah Davidson FNP [address] [place] [address] Wound of right leg, initial encounter (Primary Dx); Wound of left lower extremity, initial encounter Social History Tobacco Use Types Packs/Day Years Used Date Smoking Tobacco: Former Cigarettes Q uit: 09/14/2009 Passive Smoke Exposure: Past Smokeless Tobacco: Never Alcohol Use Standard Drinks/Week Comments No 0 (1 standard drink = 0.6 oz pur e alcohol) Financial Resource Strain Answer Date R ecorded How hard is it for you to pa y for the very basics like food, housing, medical care, and heating? Not hard at all 01/28/2023 Food Insecurity Answer Date Recorded In the past 12 months, have you worried that your food would run out before you had money to buy more? Never true 01/28/2023 In the past 12 months, did y ou run out of food and didn't have money to buy more? Never true 01/28/2023 Transportation Needs Answer Date Record ed In the past 12 months, has l ack of transportation kept you from medical appointments or from getting medications? 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 Gender Identity Not on file Sexual Orientation Not on file documented as of this encounter Last Filed Vital Signs Vital Sign Reading Time Taken Comments Blood Pressure 122/64 05/07/2025 2:39 PM CDT Pulse 77 05/07/2025 2:39 PM CDT Temperature 36.7 C (98.1 F) 05/07/2025 2:39 PM CDT Respiratory Rate 18 05/07/2025 2:39 PM CDT Oxygen Saturation 90% 05/07/2025 2:39 PM CDT Inhaled Oxygen Concentration - - Weight 155.1 kg (342 lb) 05/07/2025 2:39 PM CDT Height 182.9 cm (6') 05/07/2025 2:39 PM CDT Body Mass Index 46.38 05/07/2025 2:39 PM CDT documented in this encounter Progress Notes * Lety February, SPECIAL SERVICES DIRECTOR - 05/07/2025 2:48 PM CDT Chief Complaint Patient presents with Chronic Conditions Coordination Follow Up Ongoing issues with legs History of Present Illness The patient is a 69-year-old male who presents to the clinic for ongoing issues with his legs. He reports the presence of blisters on his legs, which he has been managing by draining them with scissors. Yesterday, he experienced significant swelling in his legs that required a wrap. Approximately an hour after applying the wrap, he felt pain in his leg and noticed that the area was swollen, prompting him to remove the bandage. He describes the sensation in his leg as bumpy and notes that the blisters tend to fill up. He has been using Band-Aids to cover the blisters, but they have been leaking through the Band-Aid and soaking his bed sheets, causing large wet spots. He has been attempting to keep the area clean and dry, but finds that this often results in irritation. He has been elevating his legs as much as possible. 10 point review of systems is otherwise negative except as mentioned above. Past Medical History: Diagnosis Date Arthritis Hands, shoulder BPH (benign prostatic hyperplasia) CHF (congestive heart failure) ([facility]) Diverticulosis of colon Hypercholesteremia Hypertension Does not take any medications for this Hypothyroidism MRSA (methicillin resistant staph aureus) culture positive 06/21/2013 Rigth leg Obesity SHEYLA (obstructive sleep apnea) 06/27/2012 CPAP Paroxysmal atrial fibrillation ([facility]) Pulmonary fibrosis ([facility]) Secondary polycythemia TIA (transient ischemic attack) Type 2 diabetes mellitus with hyperglycemia, with long-term current use of insulin ([facility]) 03/15/2016 Current Outpatient Medications Medication Instructions albuterol sulfate HFA 90 mcg/actuation aerosol inhaler INHALE 2 PUFFS EVERY 6 HOURS NEEDED FOR SHORTNESS OF BREATH alfuzosin (UROXATRAL) 10 mg, Oral, DAILY atorvastatin (LIPITOR) 40 mg, Oral, DAILY azelastine (ASTELIN) 137 mcg/actuation nasal spray 2 Sprays, Both Nostrils, TWO TIMES DAILY Blood-Glucose Meter,Continuous (FreeStyle Josue 3 [place]) Use with sensor to monitor glucose continuously. Blood-Glucose Sensor (FreeStyle Josue 3 Plus Sensor) Device Use to monitor glucose continuously. Replace sensor every 15 days. buPROPion HCL (WELLBUTRIN SR) 150 mg Sustained Release 12 hour tablet TAKE 1 TABLET(150 MG) BY MOUTH TWICE DAILY CALCIUM CITRATE-VITAMIN D3 ORAL Take by mouth. 600/400 IU daily CPAP / BIPAP supplies Length of need: 99 months Mask Type: mask with headgear every 6 monthsTubing: heated 1 every 3 months, water chamber 1 every 6 months, chin strap 1 every 6 months, filters disposable 2 per month, filters reusable 1 per 6 months. 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 Length of need:99 months; use prior mask and may replace every 3 to 6 months; tubing 1 every 3 months, water chamber 1 every 6 months, chin strap 1 every 6 months, filters disposable 2 per month, filters reusable 1 per 6 months. cyanocobalamin 1,000 mcg, DAILY diclofenac sodium (VOLTAREN) 4 Grams, Topical, FOUR TIMES DAILY dress,[id number]-[id number]-cmc 4 X 4 Bandage 1 Dressing, Topical, DAILY empagliflozin (Jardiance) 25 mg tablet TAKE 1 TABLET (25 MG) BY MOUTH DAILY IN THE MORNING flash glucose scanning reader (FreeStyle Josue 2 [place]) Misc 1 Each, Misc.(Non- Drug; Combo Route),DAILY fluticasone propionate (FLONASE) 50 mcg/spray [place], Suspension nasal inhaler 2 Sprays, Both Nostrils, DAILY FreeStyle Josue 2 Sensor Kit CHANGE sensor every 14 DAYS furosemide (LASIX) 40 mg tablet TAKE 1 AND 1/2 TABLETS BY MOUTH IN THE MORNING THEN TAKE 1/2 TABLETBY MOUTH IN THE EVENING gabapentin (NEURONTIN) 100 mg, Oral, THREE TIMES DAILY HYDROcodone-acetaminophen (NORCO) 10-325 mg Tablet TAKE ONE TO TWO TABLETS BY MOUTH EVERY FOUR hours as needed for pain insulin lispro (HumaLOG KwikPen Insulin) 100 unit/mL pen syringe Inject SubQ 15 units at breakfast,15 units with lunch and 18 units with supper + sliding scale. MDD 60 units. Insulin [place], Disposable, (Olga Pen Needle) 32 gauge x 5/32 Needle Use with insulin five times PER DAY. E11.65 Lantus Solostar U-100 Insulin 24 Units, subCUT, DAILY LATE, Titrate as directed. MDD 50 units levothyroxine (SYNTHROID) 75 mcg, Oral, DAILY EARLY lisinopriL (PRINIVIL) 5 mg, Oral, DAILY metFORMIN (GLUCOPHAGE) 500 mg tablet take one tablet by mouth twice daily with meals metoprolol tartrate (LOPRESSOR) 25 mg, Oral, TWO TIMES DAILY mexiletine (MEXITIL) 150 mg, Oral, THREE TIMES DAILY OMEGA-3 FATTY ACIDS-FISH OIL ORAL 1,200 mg, DAILY potassium chloride (KLOR-CON M20) 20 mEq Extended Release tablet 20 mEq, Oral, TWO TIMES DAILY WITHMEALS rivaroxaban (XARELTO) 20 mg, Oral, DAILY Soliqua 100/33 100 unit-33 mcg/mL Insulin Pen INJECT 50 UNITS under the skin ONE HOUR PRIOR TO FIRST MEAL tamsulosin (FLOMAX) 0.4 mg, Oral, TWO TIMES DAILY triamcinolone acetonide (KENALOG) 0.5 % Cream Topical, TWO TIMES DAILY Past Surgical History: Procedure Laterality Date HX CATARACT REMOVAL Left HX EGD 2019 HX FINGER AMPUTATION Right middle and third finger tips HX HAND SURGERY Left thumb HX SHOULDER SURGERY Right Rotator cuff Past social, family, and medical history reviewed. BP 122/64 Pulse 77 Temp 98.1 ??F (36.7 ??C) Resp 18 Ht 6' (1.829 m) Wt (!) 155.1 kg (342 lb) SpO2 90% BMI 46.38 kg/m?? Physical Exam Physical Exam Constitutional: Appearance: Normal appearance. HENT: Head: Normocephalic. Right Ear: External ear normal. Left Ear: External ear normal. Mouth/Throat: Mouth: Mucous membranes are moist. Eyes: Conjunctiva/sclera: Conjunctivae normal. Cardiovascular: Rate and Rhythm: Normal rate and regular rhythm. Pulses: Normal pulses. Heart sounds: Normal heart sounds. Pulmonary: Effort: Pulmonary effort is normal. Breath sounds: Normal breath sounds. Abdominal: General: Bowel sounds are normal. Palpations: Abdomen is soft. Musculoskeletal: General: Normal range of motion. Cervical back: Neck supple. Right lower leg: Edema present. Left lower leg: Edema present. Skin: Comments: There are multiple shallow ulcers to bilateral lower extremities. No signs of infection. Neurological: General: No focal deficit present. Mental Status: He is alert. Psychiatric: Mood and Affect: Mood normal. Assessment & Plan 1. Wound of right leg, initial encounter (Primary) - Wounds are not currently infected but are increasing in number and difficult to manage. - Discussed the importance of keeping the wounds covered and avoiding picking at them to prevent infection. Referral to wound care for further management has been made. - Patient advised to elevate legs as much as possible and monitor for signs of infection. Dressing will be applied by the emergency medical services coordinator. - AMB REFERRAL TO WOUND CLINIC 2. Wound of left lower extremity, initial encounter - AMB REFERRAL TO WOUND CLINIC DIMA Chow The author of this note, patient (or authorized sales representative metals), and all other persons present consent to the audio recording of this visit for charting documentation purposes. This note was automatically generated, edited by a [employer], and finalized by DANNY Chow. documented in this encounter Plan of Treatment Upcoming Encounters Date Type Department Care Team (Late st Contact Info) Description 07/16/2025 1:00 PM CDT Office Visit [facility] [address] [place] [address] Savannah Davidson FNP [address] [place] [address] 10/15/2025 1:00 PM METEOROLOGICAL OBSERVER Office Visit [facility] [address] [place] [address] Savannah Davidson FNP [address] [place] [address] Scheduled Referrals Name Type Priority Associated Diagnoses Orde r Schedule AMB REFERRAL TO WOUND CLINIC Outpatient Referral Routine Wound of right leg, initial encounter Wound of left lower extremity, initial encounter Ordered: 05/07/2025 documented as of this encounter Visit Diagnoses Diagnosis Wound of right leg, initial encounter- Primary Wound of left lower extremity, initial encounter documented in this encounter Care Teams Administrative Hearing Officer Relationship Specialty Start Date End Date Kelsey Burgos DO [address] [place] [address] PCP - General Family Practice 08/10/10 documented as of this encounter
[2025-05-10 12:05] VITALS: BP 109/55; PULSE 60; RESP 16; TEMP 36.5; O2SAT 94; BMI 43.4
--- OUTSIDE RECORDS SUMMARY | 2025-05-10 12:12 | XMS_ITS | Encounter Summary ---
Author Organization [facility] Address [address] 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
--- OUTSIDE RECORDS SUMMARY | 2025-05-10 12:12 | XMS_ITS | Encounter Summary ---
Author Organization [facility] Address 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 Information reviewed with Franklyn RAMSEY. He stated the patient needs to go to an ED for evaluation. Patients nurse behavioral health care informed of the above. central office technician requested for an ambulance to be called. Ambulance arrived shortly after. documented in this encounter Plan of Treatment Upcoming Encounters Date Type Department Care Team (Late st Contact Info) Description 07/16/2025 1:00 PM CDT Office Visit [facility] [address] [place] [address] February, [employer] [place] [address] 10/15/2025 1:00 PM CRM BUSINESS ANALYST Office Visit [facility] [address] [place] [address] February, [employer] [address] [place] [address] documented as of this encounter Visit Diagnoses Not on filedocumented in this encounter Care Teams Associate Professor Of Psychology Relationship Specialty Start Date End Date Kelsey Burgos DO [address] [facility] [place] [address] PCP - General Family Practice 9/27/10 documented as of this encounter
--- OUTSIDE RECORDS SUMMARY | 2025-05-10 12:12 | XMS_ITS | Encounter Summary ---
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 Gender Identity Not on file Sexual Orientation Not on file documented as of this encounter Plan of Treatment Not on file documented as of this encounter Procedures Procedure Name Priority Date/Time Associated Diagnosis Comments T4 TOTAL Routine 12/18/2004 10:29 AM PUBLIC RELATIONS ACCOUNT EXECUTIVE T3 Routine 12/18/2004 10:29 AM PUBLIC RELATIONS ACCOUNT EXECUTIVE TSH Routine 12/18/2004 10:29 AM PUBLIC RELATIONS ACCOUNT EXECUTIVE documented in this encounter Results * T3 (12/18/2004 10:29 AM PUBLIC RELATIONS ACCOUNT EXECUTIVE) T3 See Sep Report INTERFACE SYSTEM 12/18/2004 10:2 9 AM PUBLIC RELATIONS ACCOUNT EXECUTIVE us Logan LEE CHEMISTRY ORDERABLES Final Re sult INTERFACE SYSTEM Refer to clinic/hospital department * T4 TOTAL (12/18/2004 10:29 AM PUBLIC RELATIONS ACCOUNT EXECUTIVE) T4 TOTAL 7.5 5.2 - 12.0 mcg/dl INTERFACE SYSTEM 12/18/2004 10:2 9 AM PUBLIC RELATIONS ACCOUNT EXECUTIVE Logan LEE CHEMISTRY ORDERABLES Final Re sult Performing Organization Address [facility] de Phone Number INTERFACE SYSTEM Refer to clinic/hospital department * TSH (12/18/2004 10:29 AM PUBLIC RELATIONS ACCOUNT EXECUTIVE) TSH 3.07 0.49 - 4.67 uIU/ml INTERFACE SYSTEM 12/18/2004 10:2 9 AM PUBLIC RELATIONS ACCOUNT EXECUTIVE Logan LEE CHEMISTRY ORDERABLES Final Re sult Performing Organization Address [facility] Phone Number INTERFACE SYSTEM Refer to clinic/hospital department documented in this encounter Visit Diagnoses Not on filedocumented in this encounter Additional Health Concerns Infection Onset Date Last Indicated Resolved Time MRSA Comment:Right leg 06/21/13 06/25/2013 06/25/2013 documented as of this encounter Care Teams Senior Care Specialist Relationship Specialty Start Date End Date Kelsey Burgos DO [address] [place] [address] PCP - General Family Practice 08/10/10 documented as of this encounter
--- OUTSIDE RECORDS SUMMARY | 2025-05-10 12:12 | XMS_ITS | Clinical Summary ---
Author Organization [facility] Address [address] [address] Care Team Providers Care Staffing Associate Name Role Phone Kelsey Burgos Primary Care Provider [phone] Allergies Active Allergy Reactions Criticality Noted Date Comments Alpha-Gal (Lsxplzkdn-Wqbdq-3,3-Ga lactose) Nausea and Vomiting Low 02/09/2022 Clindamycin Nausea and Vomiting Low 11/25/2016 Influenza Vac Typ A,B Surf Ant Other (See Comments) High 10/07/2009 Blisters and severe illness Levofloxacin Dizziness Low 04/07/2023 Penicillins [place] Syndrome High 04/16/2009 Sulfamethoxazole-Trimet hoprim Rash Low 12/09/2015 Tetracycline Rash Low 04/16/2009 Medications flash glucose scanning reader (BuddyTVyle Josue 2 Mineral) MiscIndications:T ype 2 diabetes mellitus with hyperglycemia, with long-term current use of insulin ([facility]) 1 Each by [facility].(Non-Drug; Combo Route) route daily. 1 Each 021 Active diclofenac sodium (VOLTAREN) 1 % gelIndications:Ac sundar right-sided low back pain without sciatica Apply 4 Grams to affected area 4 times daily. 100 Gram 3 022 Active dress,collagn-kameron g-trkbzng-qmh 4 X 4 BandageIndication s:Wound of left lower extremity, initial encounter Apply 1 Dressing to affected area daily. 10 Each 3 023 Active albuterol sulfate HFA 90 mcg/actuation aerosol inhalerIndication s:Chest congestion,RAD (reactive airway disease), mild intermittent, uncomplicated INHALE 2 PUFFS EVERY 6 HOURS NEEDED FOR SHORTNESS OF BREATH 8.5 Gram 3 023 Active tamsulosin (FLOMAX) 0.4 mg capsule Take 1 Capsule (0.4 mg) by mouth 2 times daily. 180 Capsule 4 024 Active azelastine (ASTELIN) 137 mcg/actuation nasal sprayIndications: Seasonal allergic rhinitis due to pollen Administer 2 Sprays in each nostril 2 times daily. 30 mL 4 024 Active fluticasone propionate (FLONASE) 50 mcg/spray Gate, Suspension nasal inhalerIndication s:Seasonal allergic rhinitis due to pollen Administer 2 Sprays in each nostril daily. 16 Gram 3 024 Active cpap medical deviceIndications :Obstructive sleep apnea Use prior cpap settings. Length of need:99 months; use prior mask and may replace every 3 to 6 months; tubing 1 every 3 months, water chamber 1 every 6 months, chin strap 1 every 6 months, filters disposable 2 per month, filters reusable 1 per 6 months. 1 Each 024 Active metFORMIN (GLUCOPHAGE) 500 mg tablet take one tablet by mouth twice daily with meals 180 Tablet 3 024 Active atorvastatin (LIPITOR) 40 mg tabletIndications :Mixed hyperlipidemia take 1 tablet by mouth once daily 100 Tablet 3 024 Active OMEGA-3 FATTY ACIDS-FISH OIL ORAL Take 1,200 mg by mouth daily. Active CALCIUM CITRATE-VITAMIN D3 ORAL Take by mouth. 600/400 IU daily Active cyanocobalamin 1,000 mcg Tablet Take 1,000 mcg by mouth daily. Active potassium chloride (KLOR-CON M20) 20 mEq Extended Release tabletIndications :Acute on chronic combined systolic and diastolic congestive heart failure, NYHA class 3 (CMS/HCC),Leg swelling Take 1 Tablet (20 mEq) by mouth 2 times daily with meals. 180 Tablet 2 024 Active metoprolol tartrate (LOPRESSOR) 25 mg tabletIndications :Paroxysmal atrial fibrillation (CMS/HCC) Take 1 Tablet (25 mg) by mouth 2 times daily. 180 Tablet 4 024 Active furosemide (LASIX) 40 mg tabletIndications :Acute on chronic combined systolic and diastolic congestive heart failure, NYHA class 3 (CMS/HCC) TAKE 1 AND 1/2 TABLETS BY MOUTH IN THE MORNING THEN TAKE 1/2 TABLET BY MOUTH IN THE EVENING 180 Tablet 3 024 Active CPAP / BIPAP suppliesIndicatio ns:Obstructive sleep apnea Length of need: 99 months Mask Type: mask with headgear every 6 monthsTubing: heated 1 every 3 months, water chamber 1 every 6 months, chin strap 1 every 6 months, filters disposable 2 per month, filters reusable 1 per 6 months. 1 Each 024 Active HYDROcodone-aceta minophen (NORCO) 10-325 mg TabletIndications :Chronic right shoulder pain,Chronic neck pain TAKE ONE TO TWO TABLETS BY MOUTH EVERY FOUR hours as needed for pain 30 Tablet 024 Active insulin glargine (Lantus Solostar U-100 Insulin) 100 unit/mL pen syringeIndication s:Type 2 diabetes mellitus with hyperglycemia, with long-term current use of insulin ([facility]),[place] hypoglycemia in patient with type 2 diabetes mellitus ([facility]) Inject 24 Units by subcutaneous injection late in the day. Titrate as directed. MDD 50 units 15 mL 11 025 Active lisinopriL (PRINIVIL) 5 mg tablet TAKE ONE TABLET BY MOUTH DAILY 90 Tablet 025 Active buPROPion HCL (WELLBUTRIN SR) 150 mg Sustained Release 12 hour tabletIndications :Morbid obesity with body mass index of 40.0-49.9 ([facility]) TAKE 1 TABLET(150 MG) BY MOUTH TWICE DAILY 180 Tablet 3 025 Active alfuzosin (UROXATRAL) 10 mg Extended Release 24 hour tabletIndications :Benign prostatic hyperplasia with urinary frequency Take 1 Tablet (10 mg) by mouth daily. 90 Tablet 4 025 Active empagliflozin (Jardiance) 25 mg tabletIndications :Type 2 diabetes mellitus with hyperglycemia, with long-term current use of insulin ([facility]) TAKE 1 TABLET (25 MG) BY MOUTH DAILY IN THE MORNING 100 Tablet 4 025 Active gabapentin (NEURONTIN) 100 mg capsuleIndication s:Acute right-sided low back pain without sciatica Take 1 Capsule (100 mg) by mouth 3 times daily. 270 Capsule 025 Active rivaroxaban (Xarelto) 20 mg TabletIndications :Paroxysmal atrial fibrillation (CMS/HCC) Take 1 Tablet (20 mg) by mouth daily. 90 Tablet 4 025 Active levothyroxine 75 mcg tabletIndications :Hypothyroidism due to acquired atrophy of thyroid Take 1 Tablet (75 mcg) by mouth daily in the morning. 90 Tablet 1 025 Active FreeStyle Josue 2 Sensor KitIndications:Ty pe 2 diabetes mellitus with hyperglycemia, with long-term current use of insulin (CMS/HCC) CHANGE sensor every 14 DAYS 1 Kit 025 Active Insulin [place], Disposable, (Olga Pen Needle) 32 gauge x 5/32 NeedleIndications :Type 2 diabetes mellitus with hyperglycemia, with long-term current use of insulin (CMS/[facility]),Uses self-applied continuous glucose monitoring device,Mixed hyperlipidemia,Es sential hypertension Use with insulin five times PER DAY. E11.65 500 Each 025 Active mexiletine (MEXITIL) 150 mg capsule TAKE ONE CAPSULE BY MOUTH THREE TIMES DAILY. 270 Capsule 3 025 Active insulin lispro (HumaLOG KwikPen Insulin) 100 unit/mL pen syringe Inject SubQ 15 units at breakfast, 15 units with lunch and 18 units with supper + sliding scale. MDD 60 units. 60 mL 5 025 Active Blood-Glucose Sensor (FreeStyle Josue 3 Plus Sensor) DeviceIndications :Type 2 diabetes mellitus with hyperglycemia, with long-term current use of insulin ([facility]) Use to monitor glucose continuously. Replace sensor every 15 days. 6 Each 3 025 Active Blood-Glucose Meter,Continuous (FreeStyle Josue 3 Mineral)Indication s:Type 2 diabetes mellitus with hyperglycemia, with long-term current use of insulin ([facility]) Use with sensor to monitor glucose continuously. 1 Each 025 Active triamcinolone acetonide (KENALOG) 0.5 % Cream Apply to affected area 2 times daily. 60 Gram 2 025 2024 Active Soliqua 100/33 100 unit-33 mcg/mL Insulin PenIndications:Ty pe 2 diabetes mellitus with hyperglycemia, with long-term current use of insulin (CMS/[facility]),[place] hypoglycemia in patient with type 2 diabetes mellitus (CMS/HCC) INJECT 50 UNITS under the skin ONE HOUR PRIOR TO FIRST MEAL 15 mL 3 025 Active triamcinolone acetonide (KENALOG) 0.5 % CreamIndications: Pruritic rash Apply to affected area 2 times daily. 30 Gram 2 020 2024 Discontinued(R eorder) insulin aspart U-100 (NovoLOG Flexpen U-100 Insulin) 100 unit/mL pen syringe Inject 15 units AT breakfast, 15 units with LUNCH, AND 18 units with SUPPER plus sliding scale. Max DOSE of 60 units daily. inject under the skin. 54 mL 024 2024 Discontinued Soliqua 100/33 100 unit-33 mcg/mL Insulin PenIndications:Ty pe 2 diabetes mellitus with hyperglycemia, with long-term current use of insulin ([facility]),[place] hypoglycemia in patient with type 2 diabetes mellitus ([facility]) INJECT 50 UNITS under the skin ONE HOUR PRIOR TO FIRST MEAL 15 mL 3 025 2024 Discontinued insulin aspart U-100 (NovoLOG Flexpen U-100 Insulin) 100 unit/mL pen syringe Inject 15 units AT breakfast, 15 units with LUNCH, AND 18 units with SUPPER plus sliding scale. Max DOSE of 60 units daily. inject under the skin. 60 mL 5 025 2024 Discontinued(F ormulary Change) cephALEXin (KEFLEX) 500 mg capsule Take 1 Capsule (500 mg) by mouth 2 times daily for 7 days. 14 Capsule 025 2024 Active Problems Patient Care Coordination No te Formatting of this note migh t be different from the original. DM Care Coordination CGM: [place] Josue 2 Using with: Lamp Developer How to view data: Patient reads numbers off supervisor order takers Ordered from: [facility] [place], [place] Problem Noted Date Diagnosed Date Benign prostatic hyperplasia without lower urinary tract symptoms 04/23/2025 Frail elderly 04/23/2025 Chronic heart failure with preserved ejection fr action 04/23/2025 DDD (degenerative disc disease), cervical 2023 Nocturnal hypoglycemia in pa lexie with type 2 diabetes mellitus 01/24/2024 Morbid obesity with body mass index of 40.0-49.9 08/13/2022 Recurrent major depressive disorder, in full rem ission 06/10/2022 Overview (06/10/2022): Added per 06.09.2022 PVQ. amp Secondary polycythemia 03/04/2017 Male hypogonadism 11/23/2016 Type 2 diabetes mellitus wit h hyperglycemia, with long-term current use of insulin 03/15/2016 Paroxysmal atrial fibrillation 07/14/2014 Hypothyroidism due to acquired atrophy of thyroi d 06/27/2012 Obstructive sleep apnea 06/27/2012 Gastroesophageal reflux disease without esophagi tis 08/28/2009 Essential hypertension 08/20/2009 Mixed hyperlipidemia Resolved Problems Problem Noted Date Diagnosed Date Resolved Date Morbid obesity 06/29/2022 01/24/2024 Overview (06/29/2022): Added per 06.10.2022 PVQ Chronic respiratory failure 06/10/2022 02/07/2023 Overview (06/10/2022): Added per 06.09.2022 PVQ. amp Chronic kidney disease, stage 3a 06/10/2022 08/13/2022 Overview (06/10/2022): Added per 06.09.2022 PVQ Reactive airway disease 10/10/201808/15 MRSA (methicillin resistant staph aureus) culture positive 06/21/2013 02/24/2018 Overview (03/11/2021): Rigth leg PVCs (premature ventricular contractions) 07/09/2011 03/29/2014 Paroxysmal Non-Sustained VT 07/09/2011 07/14/2014 Hypoxia 04/19/2011 07/14/2014 Morbid obesity with alveolar hypoventilation 1 01/24/2024 Depression with anxiety 08/13/201006/16 Metabolic syndrome 07/27/2010 4 Tobacco abuse 08/28/2009 07/14/2014 Arthritis 07/14/2014 Overview (03/11/2021): Hands, shoulder Obesity 07/14/2014 Thyroid disease 07/14/2014 Overview (03/11/2021): Hyperthroidism - treated with pill Encounters Date Type Department Care Team Description 05/10/2025 Telephone [facility] [address] [place] [address] Chance Dixon, CORE STACKER Information 05/07/2025 2:40 PM CDT Office Visit [facility] [address] [place] [address] February, CORE STACKER Wound of right leg, initial encounter (Primary Dx); Wound of left lower extremity, initial encounter 05/07/2025 External Device Data ST[facility] ABSTRACTION Provider, Abstract 04/30/2025 Refill [facility] [address] [place] [address] Chance Dixon, CORE STACKER Type 2 diabetes mellitus with hyperglycemia, with long-term current use of insulin ([facility]); Nocturnal hypoglycemia in patient with type 2 diabetes mellitus ([facility]) 04/23/2025 9:40 AM CDT Office Visit [facility] [address] [place] [address] Kelsey Burgos DO Type 2 diabetes mellitus with hyperglycemia, with long-term current use of insulin ([facility]) (Primary Dx); Morbid obesity with body mass index of 40.0-49.9 ([facility]); Paroxysmal atrial fibrillation; Essential hypertension; Hypothyroidism due to acquired atrophy of thyroid; Mixed hyperlipidemia; Recurrent major depressive disorder, in full remission; Gastroesophageal reflux disease without esophagitis; Male hypogonadism; DDD (degenerative disc disease), cervical; Obstructive sleep apnea; Benign prostatic hyperplasia without lower urinary tract symptoms; Frail elderly; Chronic heart failure with preserved ejection fraction ([facility]) 04/16/2025 External Device Data STL ABSTRACTION Provider, Abstract 04/12/2025 Orders Only [facility] Diabetes Care Team [address] [place] [address] Zenaida Lowe DNP 04/11/2025 Refill [facility] Diabetes Care Team [address] [place] [address] Zenaida Lowe DNP 04/09/2025 External Device Data [place] ABSTRACTION Provider, Abstract 04/01/2025 8:30 AM CDT Telephone Check Up [facility] Diabetes Care Team [address] [place] [address] Zenaida Lowe DNP Type 2 diabetes mellitus with hyperglycemia, with long-term current use of insulin ([facility]) (Primary Dx); Uses self-applied continuous glucose monitoring device; Mixed hyperlipidemia; Essential hypertension; Long-term (current) use of injectable non-insulin antidiabetic drugs 03/25/2025 Refill [facility] [address] [place] [address] Kelsey Burgos DO 03/09/2025 Refill [facility] [address] [place] [address] Chance Dixon FNP 02/28/2025 Refill [facility] Diabetes Care Team [address] [place] [address] Zenaida Lowe DNP Type 2 diabetes mellitus with hyperglycemia, with long-term current use of insulin ([facility]); Uses self-applied continuous glucose monitoring device; Mixed hyperlipidemia; Essential hypertension 02/19/2025 Refill [facility] [address] [place] [address] Kelsey Burgos DO Type 2 diabetes mellitus with hyperglycemia, with long-term current use of insulin ([facility]) 02/14/2025 1:20 PM CDT Office Visit [facility] [address] [place] [address] Kelsey Burgos DO Cellulitis of left lower extremity (Primary Dx); Chronic systolic congestive heart failure; Morbid obesity with body mass index of 40.0-49.9 (CMS/[facility]); Paroxysmal atrial fibrillation; Type 2 diabetes mellitus with hyperglycemia, with long-term current use of insulin (CMS/[facility]); Essential hypertension; Hypothyroidism due to acquired atrophy of thyroid; Mixed hyperlipidemia; Recurrent major depressive disorder, in full remission; Gastroesophageal reflux disease without esophagitis; Male hypogonadism 02/11/2025 8:30 AM CDT Telephone Check Up [facility] Diabetes Care Team [address] [facility] [address] [place] [address] Zenaida Lowe DNP Type 2 diabetes mellitus with hyperglycemia, with long-term current use of insulin (CMS/HCC) (Primary Dx); Uses self-applied continuous glucose monitoring device; Essential hypertension; Mixed hyperlipidemia from Last 3 Months Immunizations Immunization Administration Dates Next Due (ADACEL/BOOSTRIX)(10 YR UP) TDAP VACCINE, 0.5ML, IM 10/28/2021 Family History Medical History Relation Name Comments Cancer Brother 1 Testicular Canc er Coronary Artery Disease Father Heart Failure Father Hypertension Father Alzheimer's Disease Maternal Grandmother Alzheimer's Disease Mother Aneurysm Paternal Grandfather Relation Name Status Comments Brother 1 Brother 2 Alive Brother 3 Cancer Father Maternal Grandmother Mother Paternal Grandfather Social History Tobacco Use Types Packs/Day Years Used Date Smoking Tobacco: Former Cigarettes Q uit: 09/14/2009 Passive Smoke Exposure: Past Smokeless Tobacco: Never Tobacco Cessation:Counseling Given: No Alcohol Use Standard Drinks/Week Comments No 0 [...] on file Legal Sex Male 5:38 AM MANAGER CULINARY Gender Identity Not on file Sexual Orientation Not on file Last Filed Vital Signs Vital Sign Reading [...] Mass Index 46.38 05/07/2025 2:39 PM CDT Plan of Treatment Upcoming Encounters Date Type Department Care Team (Late st Contact Info) Description 07/16/2025 1:00 PM CDT Office Visit [facility] [address] [place] [address] February, [facility] [address] [place] [address] 10/15/2025 1:00 PM MANAGER CULINARY Office Visit [facility] [address] [place] [address] February, [facility] [address] [place] [address] Health Maintenance Due Date Last Done Comments PNEUMOCOCCAL VACCINE 50+ YEA RS (1 of 2 - PCV) 1974 Flex Sig/CT Colonography Q 5 years 2000 ZOSTER VACCINE (1 of 2) 2005 RSV VACCINE (60+ or ) (1 - Risk 60-74 years 1-dose series) 2015 FIT/FOBT Q 1 year 01/13/2020 01/12/2019, 10/01/2017 Abdominal Aortic Aneurysm (A AA) Screening 2020 COLORECTAL SCREENING 08/13/2021 08/13/2011 DIABETES ANNUAL FOOT EXAM 08/03/20232021, 09/16/2020, 09/16/2020, Additional history exists DIABETES: A1C (Auto Order) 04/27/202501/25, 09/11/2024, 05/04/2024, Additional history exists DIABETES HBA1C Q 6 MONTHS 07/28/20252024, 09/11/2024, 05/04/2024, Additional history exists DIABETES ANNUAL RETINAL EXAM 08/23/202508/2024, 06/20/2024, 10/05/2022, Additional history exists DIABETES MICROALBUMIN ANNUAL SCREEN 01/25/2026 01/25/2025, 10/18/2024, 01/24/2024, Additional history exists LDL CHOLESTEROL ANNUAL 01/25/2026 , 09/11/2024, 05/04/2024, Additional history exists Colorectal Cancer Screening 02/09/2027 FIT-DNA Q 3 years 02/09/2027 02/10/2024 DTAP/TDAP/TD VACCINES (2 - T d or Tdap) 10/28/2031 10/28/2021 INFLUENZA VACCINE Completed 07/27/2024, , 08/28/2021, Additional history exists KHE eGFR (Auto Order) Completed 01/25/2025 , 09/11/2024, 08/14/2024, Additional history exists KHE uACR (Auto Order) Completed 01/25/2025 , 10/18/2024, 01/24/2024, Additional history exists Medicare Advantage ([place]) Preventative Visit/Annual Wellness Visit Completed 01/25/2025, 01/30/2024, 01/28/2023, Additional history exists Procedures Procedure Name Priority Date/Time Associated Diagnosis Comments MICROALBUMIN/CREATININ E RATIO, RANDOM UR Routine 01/25/2025 11:35 AM CDT Type 2 diabetes mellitus with hyperglycemia, with long-term current use of insulin ([facility]) COMPREHENSIVE METABOLIC PANEL Routine 01/25/2025 11:05 AM CDT Type 2 diabetes mellitus with hyperglycemia, with long-term current use of insulin ([facility]) LIPID PANEL Routine 01/25/2025 11:05 AM CDT Type 2 diabetes mellitus with hyperglycemia, with long-term current use of insulin ([facility]) HEMOGLOBIN A1C Routine 01/25/2025 11:05 AM CDT Type 2 diabetes mellitus with hyperglycemia, with long-term current use of insulin ([facility]) DIABETES EYE EXAM Routine 08/23/2024 10:20 AM CDT COLON CANCER SCREEN, STOOL DNA Routine 02/10/2024 3:25 PM CDT Encounter for colorectal cancer screening DIABETES FOOT EXAM 09/16/2020 12:00 AM MANAGER CULINARY OCCULT BLOOD IMMUNOASSAY, COLORECTAL SCREEN 01/12/2019 12:00 AM MANAGER CULINARY from Last 3 Months or Most Recently Relevant to Health Maintenance Results * MICROALBUMIN/CREATININE RATIO, RANDOM UR (01/25/2025 11:35 AM CDT) Creatinine, Urine 78 20 - 320 mg/dL [facility] MICROALBUMIN, URINE 1.5 See Note: mg/dL [facility] Comment: Reference Range: Reference Range Not established MICROALBUMIN/CREAT RATIO, UR 19 <30 mg/g creat [facility] Comment: The ADA defines abnormalities in albumin excretion as follows: Albuminuria Category Result (mg/g creatinine) Normal to Mildly increased <30 Moderately increased 30-299 Severely increased > OR = 300 The ADA recommends that at least two of three specimens collected within a 3-6 month period be abnormal before considering a patient to be within a diagnostic category. Test Performed at: [facility] [id number] [address] Pat Ulrich MD Urine URINE SPECIMEN OBTAINED BY CLEAN CATCH PROCEDURE / Unknown 01/25/2025 11:35 AM CDT 01/26/2025 6:09 AM CDT February CORE STACKER URINE ORDERABLES Final Result [facility] [phone] [facility] [address] [place] [address] * (ABNORMAL) HEMOGLOBIN A1C (01/25/2025 11:05 AM CDT) Pathologist [facility] HEMOGLOBIN A1C 8.6(H) <5.7 % of total Hgb [facility] Comment: For someone without known diabetes, a hemoglobin A1c value of 6.5% or greater indicates that they may have diabetes and this should be confirmed with a follow-up test. For someone with known diabetes, a value <7% indicates that their diabetes is well controlled and a value greater than or equal to 7% indicates suboptimal control. A1c targets should be individualized based on duration of diabetes, age, comorbid conditions, and other considerations. Currently, no consensus exists regarding use of hemoglobin A1c for diagnosis of diabetes for children. ESTIMATED AVERAGE GLUCOSE (MG/DL) 200 mg/dL [facility] ESTIMATED AVERAGE GLUCOSE (MMOL/L) 11.1 mmol/L [facility] Comment: Test Performed at: [facility] [address] [place] [id number] Pat Ulrich MD Blood 01/25/2025 11:0 5 AM CDT 01/26/2025 5:20 AM CDT February [facility] CHEMISTRY ORDERABLES Final Resul t [facility] [phone] [facility] [place] [address] * LIPID PANEL (01/25/2025 11:05 AM CDT) CHOLESTEROL 111 <200 mg/dL [facility] HDL 42 > OR = 40 mg/dL [facility] TRIGLYCERIDE 84 <150 mg/dL [facility] LDL CALCULATED 53 mg/dL (calc) [facility] Comment: Reference range: <100 Desirable range <100 mg/dL for primary prevention; <70 mg/dL for patients with CHD or diabetic patients with > or = 2 CHD risk factors. LDL-C is now calculated using the Wilberto-Santiago calculation, which is a validated novel method providing better accuracy than the Friedewald equation in the estimation of LDL-C. Wilberto SS et al. GONZALES. 2013;310(18): 0485-9298 (http://education.Maps InDeed/faq/OPK410) CHOL/HDL RATIO 2.6 <5.0 (calc) [facility] NON-HDL CHOLESTEROL 69 <130 mg/dL (calc) [facility] Comment: For patients with diabetes plus 1 major ASCVD risk factor, treating to a non-HDL-C goal of <100 mg/dL (LDL-C of <70 mg/dL) is considered a therapeutic option. Test Performed at: [facility] [address] [facility] [place] [address] Pat Ulrich MD Blood 01/25/2025 11:0 5 AM CDT 01/26/2025 5:20 AM CDT February [facility] CHEMISTRY ORDERABLES Final Resul t [facility] [phone] [facility] [address] [facility] [place] [address] * (ABNORMAL) COMPREHENSIVE METABOLIC PANEL (01/25/2025 11:05 AM CDT) GLUCOSE 103(H) 65 - 99 mg/dL [facility] Comment: Fasting reference interval For someone without known diabetes, a glucose value between 100 and 125 mg/dL is consistent with prediabetes and should be confirmed with a follow-up test. BUN 23 7 - 25 mg/dL [facility] CREATININE 1.03 0.70 - 1.35 mg/dL [facility] GFR 79 > OR = 60 mL/min/1. 73m2 [facility] BUN/CREAT RATIO SEE NOTE: 6 - 22 (calc) [facility] Comment: Not Reported: BUN and Creatinine are within reference range. SODIUM 140 135 - 146 mmol/L [facility] POTASSIUM 4.5 3.5 - 5.3 mmol/L [facility] CHLORIDE 100 98 - 110 mmol/L [facility] CO2 34(H) 20 - 32 mmol/L [facility] CALCIUM 9.5 8.6 - 10.3 mg/dL [facility] TOTAL PROTEIN 7.7 6.1 - 8.1 g/dL [facility] ALBUMIN 4.2 3.6 - 5.1 g/dL [facility] GLOBULIN 3.5 1.9 - 3.7 g/dL (calc) [facility] ALBUMIN/GLOBULIN RATIO 1.2 1.0 - 2.5 (calc) [facility] BILIRUBIN TOTAL 1.0 0.2 - 1.2 mg/dL [facility] ALKALINE PHOSPHATASE 64 35 - 144 U/L [facility] AST 19 10 - 35 U/L [facility] ALT 22 9 - 46 U/L [facility] Comment: Test Performed at: [facility] [address] [place] [address] Pat Ulrich MD Blood 01/25/2025 11:0 5 AM CDT 01/26/2025 5:20 AM CDT February CORE STACKER CHEMISTRY ORDERABLES Final Resul t [facility] [phone] [facility] [address] [place] [address] * (ABNORMAL) DIABETES EYE EXAM (08/23/2024 10:20 AM CDT) Abstract Provider HEALTH MAINTENANCE Edited Resu lt - Final * (ABNORMAL) COLON CANCER SCREEN, STOOL DNA (02/10/2024 3:25 PM CDT) COLOGUARD RESULT Positive( A) Negative [facility] Comment: POSITIVE TEST RESULT. A positive Cologuard result should be followed with a colonoscopy or visual examination of the colon. The normal value (reference range) for this assay is negative. TEST DESCRIPTION: Composite algorithmic analysis of stool DNA-biomarkers with hemoglobin immunoassay. Quantitative values of individual biomarkers are not reportable and are not associated with individual biomarker result reference ranges. Cologuard is intended for colorectal cancer screening of adults of either sex, 45 years or older, who are at average-risk for colorectal cancer (CRC). Cologuard has been approved for use by the U.S. FDA. The performance of Cologuard was established in a cross sectional study of average-risk adults aged 50-84. Cologuard performance in patients ages 45 to 49 years was estimated by sub-group analysis of near-age groups. Colonoscopies performed for a positive result may find as the most clinically significant lesion: colorectal cancer [4.0%], advanced adenoma (including sessile serrated polyps greater than or equal to 1cm diameter) [20%] or non- advanced adenoma [31%]; or no colorectal neoplasia [45%]. These estimates are derived from a prospective cross-sectional screening study of 10,000 individuals at average risk for colorectal cancer who were screened with both Cologuard and colonoscopy. (Jered Collier al, N Engl J Med 2014;370(14):5115-4948.) Cologuard may produce a false negative or false positive result (no colorectal cancer or precancerous polyp present at colonoscopy follow up). A negative Cologuard test result does not guarantee the absence of CRC or advanced adenoma (pre-cancer). The current Cologuard screening interval is every 3 years. ([place] [employer] Society and U.S. Multi-Society Task Force). Cologuard performance data in a 10,000 patient pivotal study using colonoscopy as the reference method can be accessed at the following location: www.[employer].com/results. Additional description of the Cologuard test process, warnings and precautions can be found at www.[facility].com. Stool STOOL SPECIMEN / Unknown 02/10/2024 3:25 PM CDT 02/14/2024 1:31 PM CDT Chance Dixon CORE STACKER BODY FLUIDS AND STOOLS Fin al Result Performing Organization Address City/State/[facility] Co de Phone Number [facility] CLIA # [id number] [address] , [address] [place] [address] * DIABETES FOOT EXAM (09/16/2020 12:00 AM MANAGER CULINARY) us Sabina Garduno CORE STACKER HEALTH MAINTENANCE Edite d Result - Final * OCCULT BLOOD IMMUNOASSAY, COLORECTAL SCREEN (01/12/2019 12:00 AM MANAGER CULINARY) us Sgf Scanning BODY FLUIDS AND STOOLS Final Res ult from Last 3 Months or Most Recently Relevant to Health Maintenance Insurance [place]ICAID [place] [facility] [id number] Care Teams Staffing Associate Relationship Specialty Start Date End Date Kelsey Burgos DO [address] [place] [id number] PCP - General Family Practice 08/10/10
--- OUTSIDE RECORDS SUMMARY | 2025-05-10 12:12 | XMS_ITS | Encounter Summary ---
Author Organization [facility] Address [address] [place] [address] Care Team Providers Care Supervisor Pressing Department Name Role Phone Kelsey Burgos DO Primary Care Provider [phone] Encounter Details Date Type Department Care Team (Latest Contact Info) Description 07/27/2006 Outpatient Historical [address] [phone] Logan Madrigal PA NO ADDRESS ON FILE Urinary Frequency (Primary Dx); Unspecified Essential Hypertension Social History Tobacco Use Types Packs/Day Years Used Date Smoking Tobacco: Never Assessed Sex and Gender Information Value Date Recorded Sex Assigned at Not on file 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 Gender Identity Not on file Sexual Orientation Not on file documented as of this encounter Plan of Treatment Not on file documented as of this encounter Visit Diagnoses Diagnosis Urinary frequency- Primary Unspecified essential hypertension documented in this encounter Additional Health Concerns Infection Onset Date Last Indicated Resolved Time MRSA Comment:Right leg 06/21/13 06/25/2013 06/25/2013 documented as of this encounter Care Teams Supervisor Pressing Department Relationship Specialty Start Date End Date Kelsey Burgos DO [address] [place] [address] PCP - General Family Practice 08/10/10 documented as of this encounter
--- OUTSIDE RECORDS SUMMARY | 2025-05-10 12:12 | XMS_ITS | Encounter Summary ---
Author Organization [facility] Address [address] [place] [address] Care Team Providers Care Ruling Machine Feeder Name Role Phone Kelsey Burgos DO Primary Care Provider Encounter Details Date Type Department Care Team (Late st Contact Info) Description 02/17/2016 Ancillary Orders [facility] [address] [place] [address] Kelsey Burgos DO [address] [place] [address] Wrist pain, acute, left (Primary Dx) Social History Tobacco Use Types Packs/Day Years Used Date Smoking Tobacco: Former Cigarettes 1 40 1 11/14/1968 - 09/14/2009 Smokeless Tobacco: Never Alcohol Use Standard Drinks/Week Comments No 0 (1 standard drink = 0.6 oz pur e alcohol) Sex and Gender Information Value Date Recorded Sex Assigned at Not on file 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 No acute injury to the bony left wrist. [id number] Narrative 02/18/2016 3:01 PM CDT Exam: XR WRIST 3+ VW LEFT Date/Time of Exam: 02/17/2016 5:14 PM Reason For Exam: Wrist pain, acute, left. Findings: AP, lateral and oblique projections of the left wrist demonstrate the radial and ulnar styloid process to be intact. Carpal and metacarpal bones are normal. There are no radiopaque soft tissue foreign bodies. Scaphoid bone is intact and lunate or perilunate dislocation is not evident. There are no soft tissue calcifications. Kelsey Burgos DO DIAGNOSTIC IMAGING ORDERABL ES Final Result documented in this encounter Visit Diagnoses Diagnosis Wrist pain, acute, left Wrist pain, acute, left- Primary documented in this encounter Additional Health Concerns Infection Onset Date Last Indicated Resolved Time MRSA Comment:Right leg 06/21/13 06/25/2013 06/25/2013 documented as of this encounter Care Teams Ruling Machine Feeder Relationship Specialty Start Date End Date Kelsey Burgos DO [address] [place] [address] PCP - General Family Practice 08/10/10 documented as of this encounter
--- OUTSIDE RECORDS SUMMARY | 2025-05-10 12:12 | XMS_ITS | Encounter Summary ---
Author Organization [facility] Address [address] [place] [address] Care Team Providers Care Manager Investment Banking Name Role Phone Kelsey Burgos DO Primary Care Provider [phone]- [phone] Encounter Details Date Type Department Care Team (Latest Contact Info) Description 12/07/2004 Outpatient Historical [address] [phone] Logan Madrigal PA NO ADDRESS ON FILE EDEMA (Primary Dx); DERMATITIS OTHER NEC Social History Tobacco Use Types Packs/Day Years Used Date Smoking Tobacco: Never Assessed Sex and Gender Information Value Date Recorded Sex Assigned at Not on file 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 Gender Identity Not on file Sexual Orientation Not on file documented as of this encounter Plan of Treatment Not on file documented as of this encounter Visit Diagnoses Diagnosis Edema- Primary Contact dermatitis and other eczema due to other specified agent documented in this encounter Additional Health Concerns Infection Onset Date Last Indicated Resolved Time MRSA Comment:Right leg 06/21/13 06/25/2013 06/25/2013 documented as of this encounter Care Teams Manager Investment Banking Relationship Specialty Start Date End Date Kelsey Burgos DO [address] [place] [address] PCP - General Family Practice 08/10/10 documented as of this encounter
--- OUTSIDE RECORDS SUMMARY | 2025-05-10 12:12 | XMS_ITS | Encounter Summary ---
Author Organization [facility] Address [address] [place] [address] Care Team Providers Care Shuttle Inspector Name Role Phone Kelsey Burgos DO Primary Care Provider [phone]- [phone] Encounter Details Date Type Department Care Team (Latest Contact Info) Description 09/07/2006 Outpatient Historical [facility] Medicine [place] [address] [facility] [address] [place] [address] Logan Madrigal PA NO ADDRESS ON FILE Other and Unspecified Hyperlipidemia (Primary Dx); Dysuria Social History Tobacco Use Types Packs/Day Years Used Date Smoking Tobacco: Never Assessed Sex and Gender Information Value Date Recorded Sex Assigned at Not on file 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 Gender Identity Not on file Sexual Orientation Not on file documented as of this encounter Plan of Treatment Not on file documented as of this encounter Visit Diagnoses Diagnosis Other and unspecified hyperlipidemia- Primary Dysuria documented in this encounter Additional Health Concerns Infection Onset Date Last Indicated Resolved Time MRSA Comment:Right leg 06/21/13 06/25/2013 06/25/2013 documented as of this encounter Care Teams Shuttle Inspector Relationship Specialty Start Date End Date Kelsey Burgos DO [address] [place] [address] PCP - General Family Practice 08/10/10 documented as of this encounter
--- OUTSIDE RECORDS SUMMARY | 2025-05-10 12:12 | XMS_ITS | Encounter Summary ---
Author Organization [facility] Address [address] [place] [address] Care Team Providers Care Recoil Spring Winder Name Role Phone Kelsey Burgos DO Primary Care Provider [phone]- [phone] Encounter Details Date Type Department Care Team (Latest Contact Info) Description 04/20/2000 Outpatient Historical [facility] Medicine [place] [address] [facility] [address] [place] [phone] Camila Antoine NO ADDRESS ON FILE Spinal stenosis, unspecified region other than cervical (Primary Dx); Displacement of intervertebral disc, site unspecified, without myelopathy Social History Tobacco Use Types Packs/Day Years Used Date Smoking Tobacco: Never Assessed Sex and Gender Information Value Date Recorded Sex Assigned at Not on file 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 Gender Identity Not on file Sexual Orientation Not on file documented as of this encounter Plan of Treatment Not on file documented as of this encounter Visit Diagnoses Diagnosis Spinal stenosis, unspecified region other than cervical- Primary Displacement of intervertebral disc, site unspecified, without myelopathy documented in this encounter Additional Health Concerns Infection Onset Date Last Indicated Resolved Time MRSA Comment:Right leg 06/21/13 06/25/2013 06/25/2013 documented as of this encounter Care Teams Recoil Spring Winder Relationship Specialty Start Date End Date Kelsey Burgos DO [address] [place] [address] PCP - General Family Practice 08/10/10 documented as of this encounter
--- OUTSIDE RECORDS SUMMARY | 2025-05-10 12:12 | XMS_ITS | Encounter Summary ---
Author Organization [facility] Address [address] [place] [address] Care Team Providers Care Bloom Conveyor Operator Name Role Phone Kelsey Burgos Primary Care Provider [phone] Encounter Details Date Type Department Care Team (Late st Contact Info) Description 05/07/2025 External Device Data [facility] ABSTRACTION Provider, Abstract NO ADDRESS ON FILE Social History Tobacco [...] on file Legal Sex Male 5:38 AM PLASTER MECHANIC Gender Identity Not on file Sexual Orientation Not on file documented as of this encounter Plan of Treatment Upcoming Encounters Date Type Department Care Team (Late st Contact Info) Description 07/16/2025 1:00 PM CDT Office Visit [facility] [address] [place] [facility] [address] February, CD REACTOR OPERATOR [address] [place] [address] 10/15/2025 1:00 PM PLASTER MECHANIC Office Visit [facility] [address] [place] [facility] [address] February, CD REACTOR OPERATOR [address] [place] [address] documented as of this encounter Visit Diagnoses Not on filedocumented in this encounter Care Teams Bloom Conveyor Operator Relationship Specialty Start Date End Date Kelsey Burgos DO [address] [place] [address] PCP - General Family Practice 08/10/10 documented as of this encounter
--- OUTSIDE RECORDS SUMMARY | 2025-05-10 12:12 | XMS_ITS | Encounter Summary ---
Author Organization [facility] Address [address] [place] [address] Care Team Providers Care Ice Cream Freezer Assistant Name Role Phone Kelsey Burgos DO Primary Care Provider [phone]- [phone] Encounter Details Date Type Department Care Team (Latest Contact Info) Description 04/06/2000 Outpatient Historical [address] [phone] Landon Anderson DO [address] [place] [address] Backache, unspecified (Primary Dx); Skin sensation disturb; Urinary tract infection, site not specified Social History Tobacco Use Types Packs/Day Years Used Date Smoking Tobacco: Never Assessed Sex and Gender Information Value Date Recorded Sex Assigned at Not on file Legal Sex Male 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 Gender Identity Not on file Sexual Orientation Not on file documented as of this encounter Plan of Treatment Not on file documented as of this encounter Visit Diagnoses Diagnosis Backache, unspecified- Primary Skin sensation disturb Disturbance of skin sensation Urinary tract infection, site not specified documented in this encounter Additional Health Concerns Infection Onset Date Last Indicated Resolved Time MRSA Comment:Right leg 06/21/13 06/25/2013 06/25/2013 documented as of this encounter Care Teams Ice Cream Freezer Assistant Relationship Specialty Start Date End Date Kelsey Burgos DO [address] [place] [address] PCP - General Family Practice 08/10/10 documented as of this encounter
--- OUTSIDE RECORDS SUMMARY | 2025-05-10 12:12 | XMS_ITS | Clinical Summary ---
Author Organization [facility] Address [address] [place] [address] Care Team Providers Care Consumer Insights Intern Name Role Phone AubreyKelsey lópez Francois BOYD Primary Care Provider Allergies Active Allergy Reactions Criticality Noted Date Comments Clindamycin Nausea and Vomiting Low 11/25/2016 Influenza Vac Typ A,B Surf Ant Other (See Comments) High 10/07/2009 Blisters and severe illness Penicillins [place] Syndrome High 04/16/2009 Sulfamethoxazole-Trimet hoprim Rash Low 12/09/2015 Tetracycline Rash Low 04/16/2009 Medications OTHERIndications:O SA (obstructive sleep apnea),Hypoxia,Hyp ercapnia Heated humidifier for BiPAP machine 1 Each 0 04/09/20 11 Active OTHERIndications:H ypoxia,Sleep apnea Bi PAP settings to 18/14 cm until follow up with Dr. Fletcher 06/10/2011 1 Each 0 05/11/20 11 Active jvjgy-3e-ziu-epa-f antwon oil 300-1,000 mg Capsule, Delayed Release(E.C.) Take 1 Cap by mouth daily. Active Ca-D3-mag me-cqju-wlf-sarath-b or (CALCIUM 600-D3 PLUS) 600 mg calcium- 800 unit-50 mg TabletIndications: Hypocalcemia,Vitam in D insufficiency Take 1 Tablet by mouth daily. 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 Active CPAP / BIPAP suppliesIndication s:Obstructive sleep apnea syndrome Cpap/Bipap supplies: Full face mask and headgear A7030/A7035 1/6mo, mask only A7030 1/3mo, cushions A7031 1/mo, non heated tubing ,A7037 1/3mo, water chamber A7046 1/6mo, filter disposable filters A7038 2/mo, reusable filters A7039 1/6mo. Chin Strap A7036 1/6 mo Length of need; 99 mo DX : G47.33 1 Each 02/19/20 20 Active bi-level machineIndications :Obstructive sleep apnea syndrome CPAP with heated humidifier. Length of Need: 99 mo full face with headgear 1 per 6 mo, mask only 1 per 3 mo,1 cushions per mo, Tubing heated 1 per 3 mo, water chamber 1 per 6 months, chin strap 1 per 6 months, filters disposable 2 per month, filters reusable 1 per 6 months 1 Each 03/02/20 20 Active portable oxygen Face to Face completed within 30 days: yes Length of Need: 99 months By: Nasal Cannula Continuously at 2 L/min. 1 Each 07/07/20 20 Active oxygen home delivery Home Oxygen Concentrator yes at 2 L/M Rest, 2 L/M Activity, 2 L/M Sleep, Delivery Device: Nasal Cannula Portability: yes, 2 L/M Rest, 2 L/M Activity, May provide device best for patient needs(E system,home fill, conserving device) Length of Need: 99 months 1 Each 07/07/20 20 Active rivaroxaban (Xarelto) 20 mg TabletIndications: Paroxysmal atrial fibrillation (CMS/HCC) TAKE 1 TABLET(20 MG) BY MOUTH DAILY 90 Tablet 4 09/16/20 20 Active metoprolol tartrate (LOPRESSOR) 25 mg tablet Take 25 mg by mouth 2 times daily. 08/12/20 20 Active empagliflozin (Jardiance) 25 mg tabletIndications: Type 2 diabetes mellitus with hyperglycemia, with long-term current use of insulin (CMS/HCC) Take 1 Tablet (25 mg) by mouth daily in the morning. 90 Tablet 4 10/30/20 20 Active albuterol HFA 90 mcg inhalerIndications :RAD (reactive airway disease), mild intermittent, uncomplicated INHALE 2 PUFFS EVERY 6 HOURS NEEDED FOR SHORTNESS OF BREATH 8.5 Gram 5 11/28/19 Active metFORMIN (GLUCOPHAGE) 500 mg tablet TAKE 1 TABLET(500 MG) BY MOUTH TWICE DAILY WITH MEALS 180 Tablet 4 12/22/19 Active meclizine (ANTIVERT) 25 mg tablet Take 25 mg by mouth 3 times daily as needed for Dizziness. Active BD Olga 2nd Gen Pen Needle 32 gauge x 5/32 Needle USE DIRECTED 11/26/19 Active atorvastatin (LIPITOR) 40 mg tabletIndications: Mixed hyperlipidemia TAKE 1 TABLET BY MOUTH EVERY DAY 90 Tablet 1 02/06/20 Active buPROPion HCL (WELLBUTRIN SR) 150 mg Sustained Release 12 hour tabletIndications: Morbid obesity with body mass index of 40.0-49.9 (CMS/HCC) Take 1 Tablet (150 mg) by mouth 2 times daily. 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 180 Tablet 5 03/04/20 Active Additional Information Patient taking differently:20 mEq OralTWO TIMES DAILY PRN, Reported on 03/04/2021 insulin glargine-lixisenat trace (Soliqua 100/33) 100 unit-33 mcg/mL Insulin PenIndications:Typ e 2 diabetes mellitus with hyperglycemia, with long-term current use of insulin ([facility]) Inject 50 Units by subcutaneous injection daily before breakfast. Take within the hour prior to the first meal of the day. After 1 week you may increase by 5 units every week with a max of 60 units a day. 15 mL 3 03/04/20 Active Additional Information Patient taking differently: 55 UnitssubCUT DAILY BEFORE BREAKFAST, Take within the hour prior to the first meal of the day. After 1 week you may increase by 5 units every week with a max of 60 units a day., Reported on 05/08/2021 dapagliflozin (Farxiga) 10 mg TabletIndications: Type 2 diabetes mellitus with hyperglycemia, with long-term current use of insulin (CMS/[facility]) Take 1 Tablet (10 mg) by mouth daily. 30 Tablet 3 03/04/20 Active levothyroxine 150 mcg tabletIndications: Hypothyroidism, unspecified type TAKE 1 TABLET(150 MCG) BY MOUTH DAILY 30 Tablet 3 04/02/20 21 Active silver sulfADIAZINE (Silvadene) 1 % Cream Apply to affected area daily. 1000 Gram 2 05/08/20 21 Active furosemide (LASIX) 40 mg tabletIndications: Acute on chronic combined systolic and diastolic congestive heart failure, NYHA class 3 (CMS/HCC) Take 1 Tablet (40 mg) by mouth see administration instructions. Take 1.5 tab in am and 1/2 tab in pm 90 Tablet 2 05/08/20 Active mexiletine (MEXITIL) 150 mg capsule TAKE 1 CAPSULE BY MOUTH THREE TIMES DAILY 270 Capsule 3 05/08/20 21 Active lisinopriL (PRINIVIL) 10 mg tabletIndications: Essential hypertension Take 0.5 Tablets (5 mg) by mouth daily. 90 Tablet 3 05/08/20 Active alfuzosin (UROXATRAL) 10 mg Extended Release 24 hour tabletIndications: Benign prostatic hyperplasia with urinary frequency Take 1 Tablet (10 mg) by mouth daily. 30 Tablet 2 05/08/20 Active HYDROcodone-acetam inophen (NORCO) 10-325 mg TabletIndications: Chronic right shoulder pain 1 to 2 tabs by mouth every 4 hours as needed for pain 30 Tablet 05/08/20 21 Active Hospital, Clinic, or Other Facility Administered Medication Ordered Dose Route Frequency Start Date End Date Status testosterone cypionate (DEPO-TESTOSTERONE) 200 mg/mL injection 200 mgIndications:Male hypogonadism 200 mg IM EVERY TWO WEEKS 09/14/2019 Active Active Problems Problem Noted Date Diagnosed Date Secondary polycythemia 03/04/2017 Male hypogonadism 11/23/2016 Type 2 diabetes mellitus with hyperglycemia 12/2015 Paroxysmal atrial fibrillation 07/14/2014 Hypothyroidism due to acquired atrophy of thyroi d 06/27/2012 SHEYLA (obstructive sleep apnea) 06/27/2012 Morbid obesity with alveolar hypoventilation 10/2011 Gastroesophageal reflux disease without esophagi tis 08/28/2009 Essential hypertension 08/20/2009 Mixed hyperlipidemia Chronic systolic congestive heart failure Resolved Problems Problem Noted Date Diagnosed Date Resolved Date Reactive airway disease 10/10/201808/15 MRSA (methicillin resistant staph aureus) culture positive 06/21/2013 02/24/2018 Overview (06/25/2013): Rigth leg PVCs (premature ventricular contractions) 07/09/2011 03/29/2014 Paroxysmal Non-Sustained VT 07/09/2011 07/14/2014 Hypoxia 04/19/2011 07/14/2014 Depression with anxiety 08/13/201006/16 Metabolic syndrome 07/27/2010 4 Tobacco abuse 08/28/2009 07/14/2014 Thyroid disease 07/14/2014 Overview (04/16/2009): Hyperthroidism - treated with pill Arthritis 07/14/2014 Overview (04/16/2009): Hands, shoulder Obesity 07/14/2014 Family History Medical History Relation Name Comments Cancer Brother 3 Testicular Canc er Coronary Artery Disease Father Heart Failure Father Hypertension Father Alzheimer's Disease Maternal Grandmother Alzheimer's Disease Mother Aneurysm Paternal Grandfather Relation Name Status Comments Brother 1 Cancer Brother 2 Alive Brother 3 Father Maternal Grandmother Mother Paternal Grandfather Social History Tobacco Use Types Packs/Day Years Used Date Smoking Tobacco: Former Cigarettes 1 40 1 11/14/1968 - 09/14/2009 Smokeless Tobacco: Never Tobacco Cessation:Counseling Given: Yes Alcohol Use Standard Drinks/Week Comments No 0 (1 standard drink = 0.6 oz pur e alcohol) Sex and Gender Information Value Date Recorded Sex Assigned at Not on file Legal Sex Male 5:20 AM INTERN RETAIL Gender Identity Not on file Sexual Orientation Not on file Last Filed Vital Signs Vital Sign Reading Time Taken Comments Blood Pressure 115/63 05/08/2021 9:31 AM CDT Pulse 81 05/08/2021 9:31 AM CDT Temperature 35.9 C (96.6 F) 05/08/2021 9:31 AM CDT Respiratory Rate 20 02/11/2021 1:42 PM CDT Oxygen Saturation 95% 05/08/2021 9:31 AM CDT Inhaled Oxygen Concentration - - Weight 146.2 kg (322 lb 6.4 oz) 05/08/2021 9:31 AM CDT Height 182.9 cm (6') 05/08/2021 9:31 AM CDT Body Mass Index 43.73 05/08/2021 9:31 AM CDT Plan of Treatment Health Maintenance Due Date Last Done Comments FIT/ DNA Q 3 YEARS (AUTO ORDER) 1973 FLEX SIG/CT COLONOGRAPHY Q 5 YEARS (AUTO ORDER) 1973 PNEUMOCOCCAL VACCINE 50+ YEA RS (1 of 2 - PCV) 1974 FIT-DNA Q 3 years 2000 Flex Sig/CT Colonography Q 5 years 2000 ZOSTER VACCINE (1 of 2) 2005 RSV VACCINE (60+ or ) (1 - Risk 60-74 years 1-dose series) 2015 FIT/FOBT Q 1 YEAR (AUTO ORDER) 01/13/2020 01/12/2019 , 10/01/2017 FIT/FOBT Q 1 year 01/13/2020 01/12/2019, 10/01/2017 COLORECTAL CANCER SCREENING (AUTO ORDER) 08/13/2021 08/13/2011 COLORECTAL SCREENING 08/13/2021 08/13/2011 Colorectal Cancer Screening (AUTO ORDER) 08/13/2021 Colorectal Cancer Screening 08/13/2021 DIABETES ANNUAL FOOT EXAM 09/16/20212019, 09/16/2020, 03/25/2015, Additional history exists DIABETES MICROALBUMIN ANNUAL SCREEN 09/16/2021 09/16/2020, 04/01/2016, 03/25/2015, Additional history exists DIABETES HBA1C Q 6 MONTHS 11/07/20212020, 12/26/2020, 09/16/2020, Additional history exists LDL CHOLESTEROL ANNUAL 05/08/2022 1, 12/26/2020, 09/16/2020, Additional history exists INFLUENZA VACCINE (#1) 2024 0, 09/16/2020, 08/16/2019, Additional history exists [place] ([place]) Preventative Visit/Annual Wellness Visit 11/14/2024 01/26/2021, 04/21/2020 DIABETES ANNUAL RETINAL EXAM 08/23/202508/2024, 06/20/2024, 10/05/2022, Additional history exists DTAP/TDAP/TD VACCINES (2 - T d or Tdap) 03/31/2030 03/31/2020 Procedures Procedure Name Priority Date/Time Associated Diagnosis Comments LIPID PANEL Routine 05/08/2021 9:59 AM CDT Mixed hyperlipidemia HEMOGLOBIN A1C Routine 05/08/2021 9:59 AM CDT 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) HM DIABETES FOOT EXAM Routine 09/16/2020 HM DIABETES EYE EXAM Routine 04/23/2020 OCCULT BLOOD IMMUNOASSAY, COLORECTAL SCREEN Routine 01/12/2019 ENDOSCOPY, COLON, DIAGNOSTIC Routine 08/13/2011 from Last 3 Months or Most Recently Relevant to Health Maintenance Results * (ABNORMAL) HEMOGLOBIN A1C (05/08/2021 9:59 AM CDT) HEMOGLOBIN A1C 11.9(H) <5.7 % of total Hgb [facility] Comment: For someone without known diabetes, a [...] A1c for diagnosis of diabetes for children. Test Performed at: [facility] [address] [place] [address] Khoi De La Rosa D.O., MPH Blood 05/08/2021 9:59 AM CDT 05/09/2021 1:36 AM CDT Sabina Garduno PRINCIPAL ENGINEER CHEMISTRY ORDERABLES Fin al Result [facility] [address] [place] [address] * LIPID PANEL (05/08/2021 9:59 AM CDT) CHOLESTEROL 141 <200 mg/dL [facility] HDL 49 > OR = 40 mg/dL [facility] TRIGLYCERIDE 127 <150 mg/dL [facility] LDL CALCULATED 71 mg/dL (calc) [facility] Comment: Reference range: <100 Desirable range <100 mg/dL for primary prevention; <70 mg/dL for patients with CHD or diabetic patients with > or = 2 CHD risk factors. LDL-C is now calculated using the Yocasta calculation, which is a validated novel method providing better accuracy than the Friedewald equation in the estimation of LDL-C. Wilberto SS et al. GONZALES. 2013;310(19): 5324-8279 (http://education.DocVue/faq/GCN078) CHOL/HDL RATIO 2.9 <5.0 (calc) [facility] TOTAL NON-HDL CHOL(LDL+VLDL) 92 <130 mg/dL (calc) [facility] Comment: For patients with diabetes plus 1 major ASCVD risk factor, treating to a non-HDL-C goal of <100 mg/dL (LDL-C of <70 mg/dL) is considered a therapeutic option. Test Performed at: [facility] [address] [address] [place] [address] Khoi De La Rosa D.O., MPH Blood 05/08/2021 9:59 AM CDT 05/09/2021 1:36 AM CDT Sabina Garduno [facility] CHEMISTRY ORDERABLES Fin al Result [facility] [address] [place] [address] * MICROALBUMIN/CREATININE RATIO, RANDOM UR (09/16/2020 9:17 AM INTERN RETAIL) MICROALBUMIN, URINE <1.2 No Reference Range mg/dL 09/16/2020 9:46 PM INTERN RETAIL [facility] CREATININE, URINE 93.1 40.0 - 278.0 mg/dL 09/16/2020 9:46 PM [facility] Comment:Reference Range vari es with fluid intake and diet. MICROALBUMIN/C REAT RATIO, UR <12.9 <17.0 mg/g 09/16/2020 9:46 PM [facility] Urine URINE SPECIMEN OBTAINED BY CLEAN CATCH PROCEDURE / Unknown Collection / Unknown 09/16/2020 9:17 AM INTERN RETAIL 09/16/2020 9:10 PM INTERN RETAIL Narrative [facility] - 09/16/2020 9:46 PM INTERN RETAIL Condition Microalbumin/Creat ratio Normal Males <17 Normal Females <25 Microalbuminuria Males 17-299 Microalbuminuria Females 25-299 Overt proteinuria >=300 Result [facility] URINE ORDERABLES Final R esult [facility] [place]# [id number] [facility] [place] [address] * DIABETES FOOT EXAM (09/16/2020) Sabina Garduno [facility] HEALTH MAINTENANCE Edite d Result - Final * DIABETES EYE EXAM (04/23/2020) Abstract [facility] Provider HEALTH MAINTENANCE Final R esult * OCCULT BLOOD IMMUNOASSAY, COLORECTAL SCREEN (01/12/2019) Stool STOOL SPECIMEN / Unknown Abstract Sp Provider BODY FLUIDS AND STOOLS Fin al Result * ENDOSCOPY, COLON, DIAGNOSTIC (08/13/2011) Abstract Sp Provider GI PROCEDURE ORDERABLES Fi nal Result from Last 3 Months or Most Recently Relevant to Health Maintenance Additional Health Concerns Infection Onset Date Last Indicated MRSA Comment:Right leg 06/21/13 06/25/2013 06/25/2013 Insurance MEDICAID [facility] Care Teams Consumer Insights Intern Relationship Specialty Start Date End Date Kelsey Burgos DO [address] [place] [address] PCP - General Family Practice 08/10/10
--- OUTSIDE RECORDS SUMMARY | 2025-05-10 12:12 | XMS_ITS | Encounter Summary ---
Author Organization [facility] Address [address] [place] [address] Care Team Providers Care Trench Trimmer Fine Name Role Phone Kelsey Burgos DO Primary Care Provider [phone] Encounter Details Date Type Department Care Team (Latest Contact Info) Description 04/01/2000 Outpatient Historical [address] [address] Landon Anderson DO [address] [place] [id number] Sciatica (Primary Dx); Nonallopathic lesion of pelvic region, not elsewhere classified; Sprain of unspecified site of sacroiliac region Social History Tobacco Use Types Packs/Day Years Used Date Smoking Tobacco: Never Assessed Sex and Gender Information Value Date Recorded Sex Assigned at Not on file Legal Sex Male 5:20 AM MATH AND SCIENCE DIVISION CHAIR Gender Identity Not on file Sexual Orientation Not on file documented as of this encounter Plan of Treatment Not on file documented as of this encounter Visit Diagnoses Diagnosis Sciatica- Primary Nonallopathic lesion of pelvic region, not elsewhere classified Sprain of unspecified site of sacroiliac region documented in this encounter Additional Health Concerns Infection Onset Date Last Indicated Resolved Time MRSA Comment:Right leg 06/21/13 06/25/2013 06/25/2013 documented as of this encounter Care Teams Trench Trimmer Fine Relationship Specialty Start Date End Date Kelsey Burgos DO [address] [place] [address] PCP - General Family Practice 08/10/10 documented as of this encounter
[2025-05-10 12:17] LABS: Glucose Point of Care 91 mg/dL (70-110)
[2025-05-10 12:26] LABS: Basophils # 0.1 10^3/uL (0.0-0.1); Basophils % 0.6 %; Eosinophils # 0.2 10^3/uL (0.0-0.8); Eosinophils % 2.6 %; Hematocrit 44.7 % (37-53); Lymphocytes # 1.2 10^3/uL (0.8-4.8); Lymphocytes % 14.7 %; Mean Corpuscular Hemoglobin 25.3 pg (27-33); Mean Corpuscular Volume 84.3 fl (82-101); Mean Platelet Volume 9.7 fL (7.4-10.4); Monocytes # 0.7 10^3/uL (0.2-0.9); Neutrophils # 5.68 10^3/uL (1.8-7.7); Neutrophils % 72.7 %; Nucleated Red Blood Cells % 0 %; Platelet Count 187 10^3/cmm (157-399); Red Cell Distribution Width 19.8 % (12.1-15.1); White Blood Count 7.81 10^3/uL (3.29-11.43)
[2025-05-10 12:45] LABS: Alanine Aminotransferase 20 U/L (0-41); Alkaline Phosphatase 78 U/L (40-130); Aspartate Amino Transferase 18 U/L (0-40); Blood Urea Nitrogen 31 mg/dL (8-23); Calcium 9.4 mg/dL (8.5-10.5); Carbon Dioxide 31 mmol/L (22-29); Chloride 98 mmol/L (98-107); Globulin 3.1 g/dL (1.3-4.6); Glucose 77 mg/dL (65-115); Osmolality Calculated 293 mOsm/kg (285-295); Sodium 139 mmol/L (136-145); Total Bilirubin 0.6 mg/dL (0.15-1.2); Total Protein 7.1 g/dL (6.6-8.7); Troponin(5th) Baseline 25 ng/L (0-15)
[2025-05-10 13:07] LABS: Bilirubin Urine Negative (Negative); Blood Urine Negative (Negative); Glucose Urine UA 1+ (Normal); Ketones Urine Negative (Negative); Leukocyte Esterase Urine Negative (Negative); Nitrate Urine Negative (Negative); Protein Urine Negative (Negative); Specific Gravity, Urine 1.012 (1.005-1.030); Urine Appearance Clear (CLEAR); Urine Color Yellow (Yellow); Urobilinogen Urine 0.2 mg/dL (Negative)
[2025-05-10 13:12] LABS: Bacteria Urine None Seen /hpf; Hyaline Casts Urine 1.65 /lpf; RBC Urine 0-2 /hpf (0-2); Squamous Epithelial Cell Urine 0-5 /hpf (0-5); WBC Urine 0-5 /hpf (0-5)
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
--- NOTE | 2025-05-10 13:49 | ECG_ITS ---
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: : 1955 Requested By: Majo Parrish Order Number: [id number] Reading MD: Measurements Intervals Cameron Rate: 57 P: 0 VA: 0 QRS: -58 QRSD: 107 T: 47 QT: 415 QTc: 407 Interpretive Statements ATRIAL FIBRILLATION WITH SLOW VENTRICULAR RESPONSE WITH ABERRANT CONDUCTION OR VENTRICULAR PREMATURE COMPLEXES POSSIBLE ANTERIOR MYOCARDIAL INFARCTION , PROBABLY OLD [30 ms Q WAVE IN V3/V4, OR R < 0.2 mV IN V4] INFERIOR MYOCARDIAL INFARCTION , PROBABLY OLD [40+ ms Q WAVE AND/OR ST/T ABNORMALITY IN II/aVF] [id number]
[2025-05-10 14:40] LABS: Troponin 5 2HR 24.79 ng/L (0-15)
--- NOTE | 2025-05-10 14:41 | PC.PHAR ---
Pt states he took his am medications without eating anything.
[2025-05-10 14:42] LABS: Troponin 5 2HR Delta -0.21 ABS# (0-10)
[2025-05-10 14:55] VITALS: BP 119/50; PULSE 71; O2SAT 95
[2025-05-10 15:03] VITALS: BP 119/50; PULSE 85; O2SAT 95
== END 2025-05-10 15:04 | disposition home or self-care (01) ==
PROVIDERS: Emergency Medicine; Emergency Provider Emergency Medicine; PCP Family Medicine
DX: I73.9 Peripheral vascular disease, unspecified (principal); I48.20 Chronic atrial fibrillation, unspecified; R42 Dizziness and giddiness; Z79.82 Long term (current) use of aspirin; Z79.84 Long term (current) use of oral hypoglycemic drugs; E78.5 Hyperlipidemia, unspecified; Z86.73 Personal history of transient ischemic attack (TIA), and cerebral infarction without residual deficits; I11.0 Hypertensive heart disease with heart failure; I50.9 Heart failure, unspecified
CPT/HCPCS: 36415; 36416; 80053; 81001; 82962; 84484; 85025; 93005; 99284

== ENCOUNTER → 2025-05-16 11:05 | Outpatient (BNVA) | payer MEDICARE, MEDICAID, SELFPAY | PROVIDERS: PCP Family Medicine; Visit Provider Thoracic Surgery (Cardiothoracic Vascular Surgery) | DX: E11.52 Type 2 diabetes mellitus with diabetic peripheral angiopathy with gangrene (principal); E11.622 Type 2 diabetes mellitus with other skin ulcer; L97.811 Non-pressure chronic ulcer of other part of right lower leg limited to breakdown of skin; L97.821 Non-pressure chronic ulcer of other part of left lower leg limited to breakdown of skin; E11.621 Type 2 diabetes mellitus with foot ulcer; L97.521 Non-pressure chronic ulcer of other part of left foot limited to breakdown of skin | CPT/HCPCS: 97597; 97598; 99213 ==

== ENCOUNTER → 2025-05-23 13:51 | Outpatient (BNVA) | payer MEDICARE, MEDICAID, SELFPAY | PROVIDERS: PCP Family Medicine; Visit Provider Thoracic Surgery (Cardiothoracic Vascular Surgery) | DX: E11.52 Type 2 diabetes mellitus with diabetic peripheral angiopathy with gangrene (principal); E11.622 Type 2 diabetes mellitus with other skin ulcer; L97.811 Non-pressure chronic ulcer of other part of right lower leg limited to breakdown of skin; L97.821 Non-pressure chronic ulcer of other part of left lower leg limited to breakdown of skin; I87.2 Venous insufficiency (chronic) (peripheral); Z09 Encounter for follow-up examination after completed treatment for conditions other than malignant neoplasm | CPT/HCPCS: 97597; A6197 ==

== ENCOUNTER → 2025-05-27 14:59 | Outpatient (BNVA) | payer OTHER, MEDICAID, SELFPAY | PROVIDERS: PCP Family Medicine; Visit Provider Thoracic Surgery (Cardiothoracic Vascular Surgery) | DX: E11.52 Type 2 diabetes mellitus with diabetic peripheral angiopathy with gangrene (principal); E11.622 Type 2 diabetes mellitus with other skin ulcer; L97.811 Non-pressure chronic ulcer of other part of right lower leg limited to breakdown of skin; L97.821 Non-pressure chronic ulcer of other part of left lower leg limited to breakdown of skin; Z09 Encounter for follow-up examination after completed treatment for conditions other than malignant neoplasm | CPT/HCPCS: 97597 ==

== ENCOUNTER → 2025-05-28 10:29 | Outpatient (BNVA) | payer OTHER, MEDICAID, SELFPAY | PROVIDERS: PCP Family Medicine; Visit Provider Nurse Practitioner Family | DX: M47.22 Other spondylosis with radiculopathy, cervical region (principal); M54.2 Cervicalgia | CPT/HCPCS: 99214 ==

== ENCOUNTER → 2025-05-29 15:13 | Outpatient (BNVA) | payer OTHER, MEDICAID, SELFPAY | PROVIDERS: PCP Family Medicine; Visit Provider Thoracic Surgery (Cardiothoracic Vascular Surgery) | DX: I87.313 Chronic venous hypertension (idiopathic) with ulcer of bilateral lower extremity (principal) | CPT/HCPCS: 29581; A6197; A6253 ==

== ENCOUNTER → 2025-05-30 09:22 | Outpatient (BNVA) | payer OTHER, MEDICAID, SELFPAY | PROVIDERS: PCP Family Medicine; Visit Provider Orthopaedic Surgery | DX: M47.22 Other spondylosis with radiculopathy, cervical region (principal) | CPT/HCPCS: 99213 ==

== ENCOUNTER → 2025-06-05 11:52 | Outpatient (BNVA) | payer OTHER, MEDICAID, SELFPAY | PROVIDERS: PCP Family Medicine; Visit Provider Thoracic Surgery (Cardiothoracic Vascular Surgery) | DX: E11.52 Type 2 diabetes mellitus with diabetic peripheral angiopathy with gangrene (principal); E11.622 Type 2 diabetes mellitus with other skin ulcer; L97.811 Non-pressure chronic ulcer of other part of right lower leg limited to breakdown of skin; L97.821 Non-pressure chronic ulcer of other part of left lower leg limited to breakdown of skin | CPT/HCPCS: 97597; A6197 ==

== ENCOUNTER → 2025-06-17 09:39 | Outpatient (BNVA) | payer OTHER, MEDICAID, SELFPAY | PROVIDERS: PCP Family Medicine; Visit Provider Thoracic Surgery (Cardiothoracic Vascular Surgery) | DX: E11.52 Type 2 diabetes mellitus with diabetic peripheral angiopathy with gangrene (principal); E11.622 Type 2 diabetes mellitus with other skin ulcer; L97.821 Non-pressure chronic ulcer of other part of left lower leg limited to breakdown of skin; Z09 Encounter for follow-up examination after completed treatment for conditions other than malignant neoplasm; I87.2 Venous insufficiency (chronic) (peripheral) | CPT/HCPCS: 97597 ==

== ENCOUNTER 2025-06-20 09:25 | Outpatient (CLI) | payer OTHER, MEDICAID, SELFPAY ==
--- NOTE | 2025-06-20 09:30 | USR_ITS ---
PROCEDURE INFORMATION: Exam: US Duplex Lower Extremity Veins, Bilateral Exam date and time: 06/20/2025 9:57 AM Age: 69 years old Clinical indication: Injury or trauma; Other: Non healing wounds; Wound, open; Left; Lower extremity, lower leg level; Dorsal artery; Additional info: Chronic unhealed ble wounds TECHNIQUE: Imaging protocol: Real-time duplex ultrasound of the bilateral extremities with 2-D anderson scale, color Doppler flow and spectral waveform analysis including responses to compression and other maneuvers (when performed) with image documentation. Complete exam focused on the lower extremity veins. COMPARISON: No relevant prior studies available. FINDINGS: Right deep veins: Unremarkable. The common femoral, femoral and popliteal veins are patent without thrombus. Normal Doppler waveforms. Normal compressibility and/or augmentation response. Normal reflux times. Left deep veins: Unremarkable. The common femoral, femoral and popliteal veins are patent without thrombus. Normal Doppler waveforms. Normal compressibility and/or augmentation response. Normal reflux times. Superficial veins: Greater saphenous veins at the saphenofemoral junctions are patent bilaterally without thrombus. Right proximal GSV reflux time is 3.3 seconds. Right distal GSV reflux time is 4 seconds. Left sided GSV reflux times were not reported. Soft tissues: Unremarkable. US/CV [place] dup insukatarina [facility] [id number] IMPRESSION: 1. No evidence of deep vein thrombosis. 2. Elongated right GSV reflux times compatible with venous insufficiency.
== END 2025-06-20 09:26 | disposition home or self-care (01) ==
LOC: RAD 09:26
PROVIDERS: PCP Family Medicine; Visit Provider Thoracic Surgery (Cardiothoracic Vascular Surgery)
DX: L97.811 Non-pressure chronic ulcer of other part of right lower leg limited to breakdown of skin (principal); L97.821 Non-pressure chronic ulcer of other part of left lower leg limited to breakdown of skin
CPT/HCPCS: 93970

== ENCOUNTER → 2025-06-24 10:04 | Outpatient (BNVA) | payer OTHER, MEDICAID, SELFPAY | PROVIDERS: PCP Family Medicine; Visit Provider Thoracic Surgery (Cardiothoracic Vascular Surgery) | DX: E11.52 Type 2 diabetes mellitus with diabetic peripheral angiopathy with gangrene (principal); E11.622 Type 2 diabetes mellitus with other skin ulcer; L97.821 Non-pressure chronic ulcer of other part of left lower leg limited to breakdown of skin; I87.2 Venous insufficiency (chronic) (peripheral); Z09 Encounter for follow-up examination after completed treatment for conditions other than malignant neoplasm | CPT/HCPCS: 97597; A6197 ==

== ENCOUNTER → 2025-07-01 10:11 | Outpatient (BNVA) | payer OTHER, MEDICAID, SELFPAY | PROVIDERS: PCP Family Medicine; Visit Provider Thoracic Surgery (Cardiothoracic Vascular Surgery) | DX: Z09 Encounter for follow-up examination after completed treatment for conditions other than malignant neoplasm (principal); Z87.2 Personal history of diseases of the skin and subcutaneous tissue | CPT/HCPCS: 99202 ==

== ENCOUNTER → 2025-08-21 10:40 | Outpatient (BNVA) | payer OTHER, MEDICAID, SELFPAY | PROVIDERS: PCP Family Medicine; Visit Provider Podiatrist Foot & Ankle Surgery | DX: E11.42 Type 2 diabetes mellitus with diabetic polyneuropathy (principal); L60.3 Nail dystrophy; L84 Corns and callosities; M21.371 Foot drop, right foot; G62.9 Polyneuropathy, unspecified; M20.41 Other hammer toe(s) (acquired), right foot; M20.42 Other hammer toe(s) (acquired), left foot; Z79.4 Long term (current) use of insulin; Z79.84 Long term (current) use of oral hypoglycemic drugs | CPT/HCPCS: 11721; 99213 ==

== ENCOUNTER → 2025-09-03 09:24 | Outpatient (BNVA) | payer OTHER, MEDICAID, SELFPAY | PROVIDERS: PCP Family Medicine; Visit Provider Nurse Practitioner Family | DX: M47.22 Other spondylosis with radiculopathy, cervical region (principal) | CPT/HCPCS: 99214 ==

== ENCOUNTER 2025-09-20 09:30 | Emergency (ER) | payer MEDICARE, MEDICAID, SELFPAY ==
--- OUTSIDE RECORDS SUMMARY | 2025-09-20 09:42 | XMS_ITS | Encounter Summary ---
Author Organization [facility] Address [address] [place] [address] Care Team Providers Care Watcher [facility] Name Role Phone Kelsey Burgos DO Primary Care Provider [phone] Encounter Details Date Type Department Care Team (Latest Contact Info) Description 07/27/2006 Outpatient Historical [address] [phone] Logan Madrigal PA NO ADDRESS ON FILE Urinary Frequency (Primary Dx); Unspecified Essential Hypertension Social History Tobacco Use Types Packs/Day Years Used Date Smoking Tobacco: Never Assessed Sex and Gender Information Value Date Recorded Sex Assigned at Not on file Legal Sex Male 5:20 AM [employer] Gender Identity Not on file Sexual Orientation Not on file documented as of this encounter Plan of Treatment Not on file documented as of this encounter Visit Diagnoses Diagnosis Urinary frequency- Primary Unspecified essential hypertension documented in this encounter Additional Health Concerns Infection Onset Date Last Indicated Resolved Time MRSA Comment:Right leg 06/21/13 06/25/2013 06/25/2013 documented as of this encounter Care Teams Watcher [facility] Relationship Specialty Start Date End Date Kelsey Burgos DO [address] [place] [id number] PCP - General Family Practice 08/10/10 documented as of this encounter
--- OUTSIDE RECORDS SUMMARY | 2025-09-20 09:42 | XMS_ITS | Clinical Summary ---
Author Organization [facility] Address [address] [place] [address] Care Team Providers Care Disassembler Product Name Role Phone AubreyKelsey lópez Francois BOYD [...] 06/10/2011 1 Each 0 05/11/20 11 Active xguvl-1t-ktz-epa-f antwon oil 300-1,000 mg Capsule, Delayed Release(E.C.) Take 1 Cap by mouth daily. 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 Gender Identity Not on file Sexual Orientation [...] Flex Sig/CT Colonography Q 5 years 2000 RSV VACCINE (60+ or ) (1 - Risk 50-74 years 1-dose series) 2005 ZOSTER VACCINE (1 of 2) 2005 FIT/FOBT Q 1 YEAR (AUTO ORDER) 01/13/2020 [...] Additional history exists LDL CHOLESTEROL ANNUAL 05/08/2022 , 12/26/2020, 09/16/2020, Additional history exists Medicare Advantage ([place]) Preventative Visit/Annual Wellness Visit 11/14/2024 01/26/2021, 04/21/2020 INFLUENZA VACCINE (#1) 2025 09/16/2020, 2017 DIABETES ANNUAL RETINAL EXAM 08/23/202508/2024, 06/20/2024, 10/05/2022, [...] RATIO, RANDOM UR Routine 09/16/2020 9:17 AM DIRECTOR OF PUBLICATIONS Type 2 diabetes mellitus with hyperglycemia, with long-term current use of insulin ([facility]) HM DIABETES FOOT EXAM Routine 09/16/2020 HM DIABETES EYE EXAM Routine 04/23/2020 OCCULT BLOOD IMMUNOASSAY, COLORECTAL SCREEN Routine 01/12/2019 ENDOSCOPY, COLON, DIAGNOSTIC Routine 08/13/2011 from Last 3 Months or Most Recently Relevant to Health Maintenance Results * (ABNORMAL) HEMOGLOBIN A1C (05/08/2021 9:59 AM CDT) HEMOGLOBIN A1C 11.9(H) <5.7 % of total Hgb [address] Comment: For someone without known diabetes, a [...] of diabetes for children. Test Performed at: [facility] [address] [place] [address] Khoi De La Rosa D.O., MPH Blood 05/08/2021 9:59 AM CDT 05/09/2021 1:36 AM CDT Sabina MARTINP CHEMISTRY ORDERABLES Fin al Result [address] [place] [address] * LIPID PANEL (05/08/2021 9:59 AM CDT) CHOLESTEROL 141 <200 mg/dL [facility] HDL 49 > OR = 40 mg/dL [facility] TRIGLYCERIDE 127 <150 mg/dL [facility] LDL CALCULATED 71 mg/dL (calc) [facility] Comment: Reference range: <100 Desirable range <100 mg/dL for primary prevention; <70 mg/dL for patients with CHD or diabetic patients with > or = 2 CHD risk factors. LDL-C is now calculated using the Yocasta calculation, which is a validated novel method providing better accuracy than the Friedewald equation in the estimation of LDL-C. Wilberto SS et al. GONZALES. 2013;310(25): 6785-8215 (http://education.IS Decisions/faq/ISX976) CHOL/HDL RATIO 2.9 <5.0 (calc) [facility] TOTAL NON-HDL CHOL(LDL+VLDL) 92 <130 mg/dL (calc) [facility] Comment: For patients with diabetes plus 1 major ASCVD risk factor, treating to a non-HDL-C goal of <100 mg/dL (LDL-C of <70 mg/dL) is considered a therapeutic option. Test Performed at: [facility] [address] [place] [address] Khoi De La Rosa D.O., MPH Blood 05/08/2021 9:59 AM CDT 05/09/2021 1:36 AM CDT Sabina Garduno FIELD MARKETING SPECIALIST CHEMISTRY ORDERABLES Fin al Result [facility] [address] [place] [address] * MICROALBUMIN/CREATININE RATIO, RANDOM UR (09/16/2020 9:17 AM DIRECTOR OF PUBLICATIONS) MICROALBUMIN, URINE <1.2 No Reference Range mg/dL 09/16/2020 9:46 PM DIRECTOR OF PUBLICATIONS [facility] CREATININE, URINE 93.1 40.0 - 278.0 mg/dL 09/16/2020 9:46 PM [facility] Comment:Reference Range vari es with fluid intake and diet. MICROALBUMIN/C REAT RATIO, UR <12.9 <17.0 mg/g 09/16/2020 9:46 PM [facility] Urine URINE SPECIMEN OBTAINED BY CLEAN CATCH PROCEDURE / Unknown Collection / Unknown 09/16/2020 9:17 AM DIRECTOR OF PUBLICATIONS 09/16/2020 9:10 PM DIRECTOR OF PUBLICATIONS Narrative [facility] - 09/16/2020 9:46 PM DIRECTOR OF PUBLICATIONS Condition Microalbumin/Creat ratio Normal Males <17 Normal Females <25 Microalbuminuria Males 17-299 Microalbuminuria Females 25-299 Overt proteinuria >=[address] [facility] URINE ORDERABLES Final R esult [facility] IA# [id number] [facility] [place] [address] * DIABETES FOOT EXAM (09/16/2020) Result [facility] Sabina Garduno [facility] HEALTH MAINTENANCE Edite d Result - Final * DIABETES EYE EXAM (04/23/2020) Abstract Sp Provider HEALTH MAINTENANCE Final R esult * OCCULT BLOOD IMMUNOASSAY, COLORECTAL SCREEN (01/12/2019) Stool STOOL SPECIMEN / Unknown us Abstract Sp Provider BODY FLUIDS AND STOOLS Fin al Result * ENDOSCOPY, COLON, DIAGNOSTIC (08/13/2011) Abstract Sp Provider GI PROCEDURE ORDERABLES Fi nal Result from Last 3 Months or Most Recently Relevant to Health Maintenance Additional Health Concerns Infection Onset Date Last Indicated MRSA Comment:Right leg 06/21/13 06/25/2013 06/25/2013 Insurance [place] [place] [address] Care Teams Disassembler Product Relationship Specialty Start Date End Date Kelsey Burgos DO [address] [place] [address] PCP - General Family Practice 08/10/10
--- OUTSIDE RECORDS SUMMARY | 2025-09-20 09:42 | XMS_ITS | Encounter Summary ---
Author Organization 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 Gender Identity Not on file Sexual Orientation Not on file documented as of this encounter Plan of Treatment Not on file documented as of this encounter Procedures Procedure Name Priority Date/Time Associated Diagnosis Comments T4 TOTAL Routine 12/18/2004 10:29 AM INCOME TAX PREPARER T3 Routine 12/18/2004 10:29 AM INCOME TAX PREPARER TSH Routine 12/18/2004 10:29 AM INCOME TAX PREPARER documented in this encounter Results * T3 (12/18/2004 10:29 AM INCOME TAX PREPARER) T3 See Sep Report INTERFACE SYSTEM 12/18/2004 10:2 9 AM INCOME TAX PREPARER us Logan LEE CHEMISTRY ORDERABLES Final Re sult INTERFACE SYSTEM Refer to clinic/hospital department * T4 TOTAL (12/18/2004 10:29 AM INCOME TAX PREPARER) T4 TOTAL 7.5 5.2 - 12.0 mcg/dl INTERFACE SYSTEM 12/18/2004 10:2 9 AM INCOME TAX PREPARER Logan LEE CHEMISTRY ORDERABLES Final Re sult Performing Organization Address [facility] Phone Number INTERFACE SYSTEM Refer to clinic/hospital department * TSH (12/18/2004 10:29 AM INCOME TAX PREPARER) TSH 3.07 0.49 - 4.67 uIU/ml INTERFACE SYSTEM 12/18/2004 10:2 9 AM INCOME TAX PREPARER Logan LEE CHEMISTRY ORDERABLES Final Re sult Performing Organization Address [facility] Phone Number INTERFACE SYSTEM Refer to clinic/hospital department documented in this encounter Visit Diagnoses Not on filedocumented in this encounter Additional Health Concerns Infection Onset Date Last Indicated Resolved Time MRSA Comment:Right leg 06/21/13 06/25/2013 06/25/2013 documented as of this encounter Care Teams Projection Engineer Relationship Specialty Start Date End Date Kelsey Burgos DO [address] [place] [address] PCP - General Family Practice 08/10/10 documented as of this encounter
--- OUTSIDE RECORDS SUMMARY | 2025-09-20 09:42 | XMS_ITS | Encounter Summary ---
Author Organization 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 [id number] Narrative 02/18/2016 3:01 PM CDT Exam: XR [...] documented as of this encounter Care Teams Silviculturist Relationship Specialty Start Date End Date Kelsey Burgos DO [address] [place] [address] PCP - General Family Practice 08/10/10 documented as of this encounter
--- OUTSIDE RECORDS SUMMARY | 2025-09-20 09:42 | XMS_ITS | Encounter Summary ---
Author Organization [facility] Address 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 If pt returns call please schedule him an appointment with one of our providers. Anais SARAVIA M DRIER OPERATOR * Telephone Encounter - Anais Geiger LPN - 09/13/2025 8:59 AM CDT 09/13/2025 8:59 AM I attempted to contact pt to let him know he would need to be seen for refill on antibiotic, no answer, LVM for a call back. If pt returns call please schedule him an appointment with one of our providers. Anais SARAVIA * Telephone Encounter - Anais Geiger LPN - 09/12/2025 9:34 AM CDT 09/12/2025 9:34 AM I attempted to contact pt to let him know he would need to be seen for refill on antibiotic, no answer, LVM for a call back. If pt returns call please schedule him an appointment with one of our providers. Anais SARAVIA * Telephone Encounter - Anais Geiger LPN - 09/11/2025 2:34 PM CDT 09/11/2025 2:34 PM Called pharmacy for more information and they said pt has been using this antibiotic to heal sores on his legs. Galina said she would let pt know he needs to schedule an appointment if he comes back in to check on refill. I attempted to contact pt to let him know he would need to be seen for refill on antibiotic, no answer, LVM for a call back. If pt returns call please schedule him an appointmentwith one of our providers. Anais SARAVIA * Telephone Encounter - Humberto Chacko - 09/11/2025 2:24 PM CDT Copied from [facility] #[id number]. Topic: Medication Request >> Sep 11, 2025 2:23 PM Humberto Sapp wrote: Pharmacy Calling: [facility] Pharmacy Contact Name: Galina Pharmacy Number: [phone] Medication: cephALEXin (KEFLEX) 500 mg Gtmtcco54/ Sig - Route: Take 1 Capsule (500 mg) by mouth 2 times daily for 7 days. - Oral Sent to pharmacy as: cephalexin 500 mg capsule (KEFLEX) Class: E-Prescribe E-Prescribing Status: Receipt confirmed by pharmacy (04/23/2025 10:32 AM CDT) Call Notes: Caller states patient is trying to have listed medication refilled at [facility] Is the patient there at the pharmacy waiting to fill a prescription? No Is there an encounter open? No documented in this encounter Plan of Treatment Upcoming Encounters Date Type Department Care Team (Late st Contact Info) Description 10/15/2025 1:00 PM STEAM DRIER OPERATOR Office Visit [facility] [place] [address] [facility] [place] [phone] Davidsonfebruary, [employer]ANCE SCOUT [address] [facility] [place] [phone] 10/22/2025 11:30 AM STEAM DRIER OPERATOR Office Visit [facility] Vascular Surgery [place] [address] [place] [phone] Naiad Wakefield MD [address] [phone] 10/25/2025 1:00 PM STEAM DRIER OPERATOR Office Visit [facility] [place] [address] [place] [address] Davidsonfebruary, [employer] [address] [place] [address] documented as of this encounter Visit Diagnoses Not on filedocumented in this encounter Care Teams Swing Frame Grinder Operator Relationship Specialty Start Date End Date Kelsey Burgos DO [address] [place] [address] PCP - General Family Practice 08/10/10 documented as of this encounter
--- OUTSIDE RECORDS SUMMARY | 2025-09-20 09:42 | XMS_ITS | Encounter Summary ---
Author Organization [facility] Address [address] [place] [address] Care Team Providers Care Senior Sql Database Developer Name Role Phone Kelsey Burgos DO Primary Care Provider [phone] Encounter Details Date Type Department Care Team (Latest Contact Info) Description 09/07/2006 Outpatient Historical [facility] Medicine [place] [address] [facility] [address] [place] [address] Loagn Madrigal PA NO ADDRESS ON FILE Other and Unspecified Hyperlipidemia (Primary Dx); Dysuria Social History Tobacco Use Types Packs/Day Years Used Date Smoking Tobacco: Never Assessed Sex and Gender Information Value Date Recorded Sex Assigned at Not on file 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 Male 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 Gender Identity Not on file Sexual Orientation Not on file documented as of this encounter Plan of Treatment Not on file documented as of this encounter Visit Diagnoses Diagnosis Other and unspecified hyperlipidemia- Primary Dysuria documented in this encounter Additional Health Concerns Infection Onset Date Last Indicated Resolved Time MRSA Comment:Right leg 06/21/13 06/25/2013 06/25/2013 documented as of this encounter Care Teams Senior Sql Database Developer Relationship Specialty Start Date End Date Kelsey Burgos DO [address] [place] [address] PCP - General Family Practice 08/10/10 documented as of this encounter
--- OUTSIDE RECORDS SUMMARY | 2025-09-20 09:42 | XMS_ITS | Encounter Summary ---
Author Organization [facility] Address [address] [place] [address] Care Team Providers Care Conference Organizer Name Role Phone Kelsey Burgos DO Primary Care Provider [phone] Encounter Details Date Type Department Care Team (Latest Contact Info) Description 04/20/2000 Outpatient Historical [facility] Medicine [place] [address] [facility] [address] [place] [phone] Camila Antoine NO ADDRESS ON FILE Spinal stenosis, unspecified region other than cervical (Primary Dx); Displacement of intervertebral disc, site unspecified, without myelopathy Social History Tobacco Use Types Packs/Day Years Used Date Smoking Tobacco: Never Assessed Sex and Gender Information Value Date Recorded Sex Assigned at Not on file 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
--- OUTSIDE RECORDS SUMMARY | 2025-09-20 09:42 | XMS_ITS | Encounter Summary ---
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
--- OUTSIDE RECORDS SUMMARY | 2025-09-20 09:42 | XMS_ITS | Clinical Summary ---
Author Organization [facility] Address [address] [place] [address] Care Team Providers Care Weeder Name Role Phone Kelsey Burgos Primary Care Provider [phone] Allergies Active Allergy Reactions Criticality Noted Date Comments Alpha-Gal (Jsjblemzg-Tgvdn-5,3-Ga lactose) Nausea and Vomiting Low 02/09/2022 Clindamycin Nausea and Vomiting Low 11/25/2016 Influenza Vac Typ A,B Surf Ant Other (See Comments) High 10/07/2009 Blisters and severe illness Levofloxacin Dizziness Low 04/07/2023 Penicillins [place] Syndrome High 04/16/2009 Sulfamethoxazole-Trimet hoprim Rash Low 12/09/2015 Tetracycline Rash Low 04/16/2009 Medications flash glucose scanning reader (Particleyle Josue 2 Circle) MiscIndications:Ty pe 2 diabetes mellitus with hyperglycemia, with long-term current use of insulin ([facility]) 1 Each by [facility]Non-Drug; Combo Route) route daily. 1 Each 10/27/20 21 Active diclofenac sodium (VOLTAREN) 1 % gelIndications:Acu te right-sided low back pain without sciatica Apply 4 Grams to affected area 4 times daily. 100 Gram 3 04/06/20 22 Active dress,collagn-silv -alginat-cmc 4 X 4 BandageIndications :Wound of left lower extremity, initial encounter Apply 1 Dressing to affected area daily. 10 Each 3 03/22/20 23 Active albuterol sulfate HFA 90 mcg/actuation aerosol inhalerIndications :Chest congestion,RAD (reactive airway disease), mild intermittent, uncomplicated INHALE 2 PUFFS EVERY 6 HOURS NEEDED FOR SHORTNESS OF BREATH 8.5 Gram 3 07/12/20 23 Active azelastine (ASTELIN) 137 mcg/actuation nasal sprayIndications:S easonal allergic rhinitis due to pollen Administer 2 Sprays in each nostril 2 times daily. 30 mL 4 01/31/20 24 Active fluticasone propionate (FLONASE) 50 mcg/spray [place], Suspension nasal inhalerIndications :Seasonal allergic rhinitis due to pollen Administer 2 Sprays in each nostril daily. 16 Gram 3 01/31/20 24 Active cpap medical deviceIndications: Obstructive sleep apnea Use prior cpap settings. Length of need:99 months; use prior mask and may replace every 3 to 6 months; tubing 1 every 3 months, water chamber 1 every 6 months, chin strap 1 every 6 months, filters disposable 2 per month, filters reusable 1 per 6 months. 1 Each 02/01/20 24 Active OMEGA-3 FATTY ACIDS-FISH OIL ORAL Take 1,200 mg by mouth daily. Active CALCIUM CITRATE-VITAMIN D3 ORAL Take by mouth. 600/400 IU daily Active cyanocobalamin 1,000 mcg Tablet Take 1,000 mcg by mouth daily. Active metoprolol tartrate (LOPRESSOR) 25 mg tabletIndications: Paroxysmal atrial fibrillation ([facility]/HCC) Take 1 Tablet (25 mg) by mouth 2 times daily. 180 Tablet 4 08/14/20 24 Active CPAP / BIPAP suppliesIndication s:Obstructive sleep apnea Length of need: 99 months Mask Type: mask with headgear every 6 monthsTubing: heated 1 every 3 months, water chamber 1 every 6 months, chin strap 1 every 6 months, filters disposable 2 per month, filters reusable 1 per 6 months. 1 Each 09/27/20 24 Active HYDROcodone-acetam inophen (NORCO) 10-325 mg TabletIndications: Chronic right shoulder pain,Chronic neck pain TAKE ONE TO TWO TABLETS BY MOUTH EVERY FOUR hours as needed for pain 30 Tablet 10/19/20 24 Active insulin glargine (Lantus Solostar U-100 Insulin) 100 unit/mL pen syringeIndications :Type 2 diabetes mellitus with hyperglycemia, with long-term current use of insulin ([facility]),Nocturna l hypoglycemia in patient with type 2 diabetes mellitus ([facility]) Inject 24 Units by subcutaneous injection late in the day. Titrate as directed. MDD 50 units 15 mL 11 11/21/19 25 Active lisinopriL (PRINIVIL) 5 mg tablet TAKE ONE TABLET BY MOUTH DAILY 90 Tablet 4 12/17/19 25 Active buPROPion HCL (WELLBUTRIN SR) 150 mg Sustained Release 12 hour tabletIndications: Morbid obesity with body mass index of 40.0-49.9 ([facility]) TAKE 1 TABLET(150 MG) BY MOUTH TWICE DAILY 180 Tablet 3 01/26/20 25 Active empagliflozin (Jardiance) 25 mg tabletIndications: Type 2 diabetes mellitus with hyperglycemia, with long-term current use of insulin ([facility]) TAKE 1 TABLET (25 MG) BY MOUTH DAILY IN THE MORNING 100 Tablet 4 01/26/20 25 Active gabapentin (NEURONTIN) 100 mg capsuleIndications :Acute right-sided low back pain without sciatica Take 1 Capsule (100 mg) by mouth 3 times daily. 270 Capsule 3 01/26/20 25 Active rivaroxaban (Xarelto) 20 mg TabletIndications: Paroxysmal atrial fibrillation ([facility]) Take 1 Tablet (20 mg) by mouth daily. 90 Tablet 4 01/26/20 25 Active FreeStyle Josue 2 Sensor KitIndications:Typ e 2 diabetes mellitus with hyperglycemia, with long-term current use of insulin ([facility]) CHANGE sensor every 14 DAYS 1 Kit 02/20/20 25 Active Insulin [place], Disposable, (Olga Pen Needle) 32 gauge x 5/32 NeedleIndications: Type 2 diabetes mellitus with hyperglycemia, with long-term current use of insulin ([facility]),Uses self-applied continuous glucose monitoring device,Mixed hyperlipidemia,Ess ential hypertension Use with insulin five times PER DAY. E11.65 500 Each 02/29/20 25 Active mexiletine (MEXITIL) 150 mg capsule TAKE ONE CAPSULE BY MOUTH THREE TIMES DAILY. 270 Capsule 3 03/25/20 25 Active insulin lispro (HumaLOG KwikPen Insulin) 100 unit/mL pen syringe Inject SubQ 15 units at breakfast, 15 units with lunch and 18 units with supper + sliding scale. MDD 60 units. 60 mL 5 04/12/20 25 Active Blood-Glucose Sensor (FreeStyle Josue 3 Plus Sensor) DeviceIndications: Type 2 diabetes mellitus with hyperglycemia, with long-term current use of insulin ([facility]) Use to monitor glucose continuously. Replace sensor every 15 days. 6 Each 3 04/23/20 25 Active triamcinolone acetonide (KENALOG) 0.5 % Cream Apply to affected area 2 times daily. 60 Gram 2 04/23/20 25 025 Active atorvastatin (LIPITOR) 40 mg tabletIndications: Mixed hyperlipidemia TAKE 1 TABLET BY MOUTH ONCE DAILY 100 Tablet 3 06/16/20 25 Active metFORMIN (GLUCOPHAGE) 500 mg tablet TAKE ONE TABLET BY MOUTH TWICE DAILY with meals 180 Tablet 3 06/18/20 25 Active potassium CHLORIDE (K-DUR,KLOR-CON M20) 20 mEq Extended Release tabletIndications: Acute on chronic combined systolic and diastolic congestive heart failure, NYHA class 3 (CMS/HCC),Leg swelling Take 1 Tablet (20 mEq) by mouth 2 times daily with meals. 180 Tablet 2 07/23/20 25 Active Soliqua 100/33 100 unit-33 mcg/mL Insulin PenIndications:Typ e 2 diabetes mellitus with hyperglycemia, with long-term current use of insulin ([facility]),[place]cturn[place] l hypoglycemia in patient with type 2 diabetes mellitus ([facility]) INJECT 50 UNITS under the skin ONE HOUR PRIOR TO FIRST MEAL 15 mL 3 08/01/20 25 Active alfuzosin (UROXATRAL) 10 mg Extended Release 24 hour tabletIndications: Benign prostatic hyperplasia with urinary frequency Take 1 Tablet (10 mg) by mouth daily. 90 Tablet 4 08/05/20 25 Active tamsulosin (FLOMAX) 0.4 mg capsule Take 1 Capsule (0.4 mg) by mouth 2 times daily. 180 Capsule 4 08/05/20 25 Active levothyroxine 88 mcg tabletIndications: Hypothyroidism due to acquired atrophy of thyroid Take 1 Tablet (88 mcg) by mouth daily in the morning. 90 Tablet 1 08/09/20 25 Active Blood-Glucose Meter,Continuous (FreeStyle Josue 3 Circle)Indications :Type 2 diabetes mellitus with hyperglycemia, with long-term current use of insulin ([facility]) Use with sensor to monitor glucose continuously. 1 Each 08/09/20 25 Active furosemide (LASIX) 40 mg tabletIndications: Acute on chronic combined systolic and diastolic congestive heart failure, NYHA class 3 (CMS/HCC) TAKE 1 AND 1/2 TABLETS BY MOUTH IN THE MORNING THEN TAKE 1/2 TABLET BY MOUTH IN THE EVENING 180 Tablet 3 08/23/20 25 Active cephALEXin (KEFLEX) 500 mg capsule Take 1 Capsule (500 mg) by mouth 2 times daily for 7 days. 14 Capsule 09/17/20 25 025 Active furosemide (LASIX) 40 mg tabletIndications: Acute on chronic combined systolic and diastolic congestive heart failure, NYHA class 3 (CMS/HCC) TAKE 1 AND 1/2 TABLETS BY MOUTH IN THE MORNING THEN TAKE 1/2 TABLET BY MOUTH IN THE EVENING 180 Tablet 3 08/14/20 24 025 Discontin ued(Reord er) Active Problems Patient Care Coordination No te Formatting of this note migh t be different from the original. DM Care Coordination CGM: Kilopass Josue 2 Using with: Real Estate Photographer How to view data: Patient reads numbers off stripe matcher Ordered from: Pharmacy [facility] [place], [place] Problem Noted Date Diagnosed Date Benign prostatic hyperplasia without lower urinary tract symptoms 04/23/2025 Frail elderly 04/23/2025 Chronic heart failure with preserved ejection fr action 04/23/2025 DDD (degenerative disc disease), cervical 2023 Nocturnal hypoglycemia in pa tient with type 2 diabetes mellitus 01/24/2024 Morbid [...] Encounters Date Type Department Care Team Description 09/17/2025 Orders Only [facility] [address] [place] [address] Kelsey Burgos, 09/11/2025 Telephone [facility] [address] [facility] [place] [address] Kelsey Burgos, DO Med Refill 08/23/2025 Refill [facility] [address] [facility] [place] [address] Davidson, February, SUPERVISOR CELL ROOM Acute on chronic combined systolic and diastolic congestive heart failure, NYHA class 3 (CMS/HCC) 08/12/2025 Telephone [facility] [address] [place] [address] Kelsey Burgos, DO Medication Assistance 08/12/2025 Class 1 [facility] [address] [place] [address] Kelsey Burgos DO 08/09/2025 Telephone [facility] [address] [place] [address] Kelsey Burgos, DO Nurse call back 08/09/2025 Orders Only [facility] [address] [place] [address] Davidson, February, SUPERVISOR CELL ROOM Hypothyroidism due to acquired atrophy of thyroid (Primary Dx) 08/06/2025 Results Follow-Up [facility] [address] [place] [address] Davidsonfebruary, SUPERVISOR CELL ROOM LIPID PANEL, CBC WITH DIFFERENTIAL, COMPREHENSIVE METABOLIC PANEL, Additional followed-up results: 2 08/05/2025 12:00 PM CDT Office Visit [facility] [address] [place] [address] Davidsonfebruary, SUPERVISOR CELL ROOM Type 2 diabetes mellitus with hyperglycemia, with long-term current use of insulin ([facility]) (Primary Dx); Mixed hyperlipidemia; Use of cane as ambulatory aid; Benign prostatic hyperplasia with urinary frequency; Wound of left lower extremity, initial encounter; Wound of right leg, initial encounter; Chronic systolic congestive heart failure 08/01/2025 Refill [facility] [address] [place] [address] Chance Dixon, SUPERVISOR CELL ROOM Type 2 diabetes mellitus with hyperglycemia, with long-term current use of insulin ([facility]); Nocturnal hypoglycemia in patient with type 2 diabetes mellitus (CMS/HCC) 07/30/2025 External Device Data STL ABSTRACTION Provider, Abstract 07/23/2025 2:00 PM CDT Office Visit [facility] [place] [address] [phone] Charles Hernandez MD Upton, Brandi E, MD 07/23/2025 1:00 PM CDT Ancillary Procedure [facility]- [address] [phone] Charles Hernandez MD Venous insufficiency 07/23/2025 External Device Data STL ABSTRACTION Provider, Abstract 07/23/2025 External Device Data STL ABSTRACTION Provider, Abstract 07/23/2025 Refill [facility] [place] [address] [place] [phone] Kelsey Burgos DO Acute on chronic combined systolic and diastolic congestive heart failure, NYHA class 3 ([facility]); Leg swelling 07/22/2025 Telephone [facility] [address] [phone] Naida Wakefield MD Question 07/11/2025 Telephone [facility] [address] [phone] Provider, Abstract Follow Up; Referral 07/08/2025 Telephone [facility]- [address] [phone] Jovanny Aldridge NP Referral; Follow Up 07/05/2025 Orders Only [facility]- [address] [phone] Khoi Barger MD 07/05/2025 Abstract [facility]- [address] [phone] Provider, Abstract from Last 3 Months Immunizations Immunization Administration [...] on file Legal 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 Gender Identity Not on file Sexual Orientation Not on file Last Filed Vital Signs Vital Sign Reading Time Taken Comments Blood Pressure 124/68 08/05/2025 11:51 AM CDT Pulse 101 08/05/2025 11:51 AM CDT Temperature 36.3 C (97.3 F) 08/05/2025 11:51 AM CDT Respiratory Rate 18 08/05/2025 11:51 AM CDT Oxygen Saturation 93% 08/05/2025 11:51 AM CDT Inhaled Oxygen Concentration - - Weight 153.3 kg (338 lb) 08/05/2025 11:51 AM CDT Height 182.9 cm (6') 08/05/2025 11:51 AM CDT Body Mass Index 45.84 08/05/2025 11:51 AM CDT Plan of Treatment Upcoming Encounters Date Type Department Care Team (Late st Contact Info) Description 10/15/2025 1:00 PM HAUL DRIVER Office Visit [facility] [address] [place] [phone] DavidsonFebruary, SUPERVISOR CELL ROOM [address] [facility] [place] [phone] 10/22/2025 11:30 AM HAUL DRIVER Office Visit [facility] [place] [address] [place] [address] Naida Wakefield MD [address] [place] [address] 10/25/2025 1:00 PM HAUL DRIVER Office Visit [facility] [address] [place] [phone] DavidsonFebruary, SUPERVISOR CELL ROOM[address] [facility] [place] [phone] Health Maintenance Due Date Last Done Comments PNEUMOCOCCAL VACCINE 50+ YEA RS (1 of 2 - PCV) 1974 Flex Sig/CT Colonography Q 5 years 2000 RSV VACCINE (60+ or ) (1 - Risk 50-74 years 1-dose series) 2005 ZOSTER VACCINE (1 of 2) 2005 FIT/FOBT Q 1 year 01/13/2020 01/12/2019, 10/01/2017 Abdominal Aortic Aneurysm (A AA) Screening 2020 COLORECTAL SCREENING 08/13/2021 08/13/2011 DIABETES ANNUAL FOOT EXAM 08/03/20232021, 09/16/2020, 09/16/2020, Additional history exists INFLUENZA VACCINE (#1) 2025 , 09/16/2020, 09/26/2018 DIABETES ANNUAL RETINAL EXAM 08/23/202508/2024, 06/20/2024, 10/05/2022, Additional history exists DIABETES: A1C (Auto Order) 11/04/202508/05, 01/25/2025, 09/11/2024, Additional history exists DIABETES MICROALBUMIN ANNUAL SCREEN 01/25/2026 01/25/2025, 10/18/2024, 01/24/2024, Additional history exists DIABETES HBA1C Q 6 MONTHS 02/02/20262024, 01/25/2025, 09/11/2024, Additional history exists LDL CHOLESTEROL ANNUAL 08/05/2026 , 01/25/2025, 09/11/2024, Additional history exists Colorectal Cancer Screening 02/09/2027 FIT-DNA Q 3 years 02/09/2027 02/10/2024 DTAP/TDAP/TD VACCINES (2 - T d or Tdap) 10/28/2031 10/28/2021 KHE uACR (Auto Order) Completed 01/25/2025 , 10/18/2024, 01/24/2024, Additional history exists Medicare Advantage ([place]) Preventative Visit/Annual Wellness Visit Completed 01/25/2025, 01/30/2024, 01/28/2023, Additional history exists KHE eGFR (Auto Order) Completed 08/05/2025 , 05/10/2025, 01/25/2025, Additional history exists Procedures Procedure Name Priority Date/Time Associated Diagnosis Comments TSH Routine 08/05/2025 12:58 PM CDT Type 2 diabetes mellitus with hyperglycemia, with long-term current use of insulin ([facility]) HEMOGLOBIN A1C Routine 08/05/2025 12:58 PM CDT Type 2 diabetes mellitus with hyperglycemia, with long-term current use of insulin ([facility]) COMPREHENSIVE METABOLIC PANEL Routine 08/05/2025 12:58 PM CDT Type 2 diabetes mellitus with hyperglycemia, with long-term current use of insulin (CMS/HCC) CBC WITH DIFFERENTIAL Routine 08/05/2025 12:58 PM CDT Type 2 diabetes mellitus with hyperglycemia, with long-term current use of insulin ([facility]) LIPID PANEL Routine 08/05/2025 12:58 PM CDT Type 2 diabetes mellitus with hyperglycemia, with long-term current use of insulin ([facility]) Mixed hyperlipidemia US VENOUS REFLUX BILATERAL Routine 07/23/2025 4:04 PM CDT Venous insufficiency HCHG VENOUS DUPLEX LOWER EXT COMP BI Routine 06/20/2025 2:28 PM CDT MICROALBUMIN/CREATINI NE RATIO, RANDOM UR Routine 01/25/2025 11:35 AM CDT Type 2 diabetes mellitus with hyperglycemia, with long-term current use of insulin ([facility]) DIABETES EYE EXAM Routine 08/23/2024 10:20 AM CDT COLON CANCER SCREEN, STOOL DNA Routine 02/10/2024 3:25 PM CDT Encounter for colorectal cancer screening DIABETES FOOT EXAM 09/16/2020 12:00 AM HAUL DRIVER OCCULT BLOOD IMMUNOASSAY, COLORECTAL SCREEN 01/12/2019 12:00 AM HAUL DRIVER from Last 3 Months or Most Recently Relevant to Health Maintenance Results * (ABNORMAL) CBC WITH DIFFERENTIAL (08/05/2025 12:58 PM CDT) WBC 7.2 3.8 - 10.8 Thousand/u L [facility] RBC 5.38 4.20 - 5.80 Million/uL [facility] HEMOGLOBIN 14.5 13.2 - 17.1 g/dL [facility] HEMATOCRIT 47.0 38.5 - 50.0 % [facility] MCV 87.4 80.0 - 100.0 fL [facility] MCH 27.0 27.0 - 33.0 pg [facility] MCHC 30.9(L) 32.0 - 36.0 g/dL [facility] Comment: For adults, a slight decrease in the calculated MCHC value (in the range of 30 to 32 g/dL) is most likely not clinically significant; however, it should be interpreted with caution in correlation with other red cell parameters and the patient's clinical condition. RDW 15.5(H) 11.0 - 15.0 % [facility] PLATELETS 210 140 - 400 Thousand/u L [facility] MPV 10.7 7.5 - 12.5 fL [facility] NEUTROPHIL ABSOLUTE 5,364 1,500 - 7,800 cells/uL [facility] LYMPHOCYTE ABSOLUTE 1,030 850 - 3,900 cells/uL [facility] MONOCYTE ABSOLUTE 590 200 - 950 cells/uL [facility] EOSINOPHIL ABSOLUTE 173 15 - 500 cells/uL [facility] BASOPHILS ABSOLUTE 43 0 - 200 cells/uL [facility] NEUTROPHIL 74.5 % [facility] LYMPHOCYTES 14.3 % [facility] MONOCYTE 8.2 % [facility] EOSINOPHILS 2.4 % [facility] BASOPHILS 0.6 % [facility] Comment: Test Performed at: [facility] [address] [place] [address] Pat Ulrich MD Blood 08/05/2025 12:5 8 PM CDT 08/06/2025 4:10 AM CDT February [facility] HEMATOLOGY ORDERABLES Final Resu lt [facility] [phone] [facility] [address] [place] [address] * (ABNORMAL) TSH (08/05/2025 12:58 PM CDT) TSH 12.11(H) 0.40 - 4.50 mIU/L [facility] Comment: Test Performed at: [facility] [address] [place] [address] Pat Ulrich MD Blood 08/05/2025 12:5 8 PM CDT 08/06/2025 4:10 AM CDT [facility] Final Resul t [facility] [phone] [facility] [address] [facility] [place] [address] * (ABNORMAL) HEMOGLOBIN A1C (08/05/2025 12:58 PM CDT) Pathologist [facility] HEMOGLOBIN A1C 8.9(H) <5.7 % [facility] Comment: For someone without known diabetes, [...] diabetes for children. ESTIMATED AVERAGE GLUCOSE (MG/DL) 209 mg/dL [facility] ESTIMATED AVERAGE GLUCOSE (MMOL/L) 11.6 mmol/L [facility] Comment: Test Performed at: [facility] [address] [place] [phone] Pat Ulrich MD Blood 08/05/2025 12:5 8 PM CDT 08/06/2025 4:10 AM CDT February Davidson [facility] CHEMISTRY ORDERABLES Final Resul t [facility] [phone] [facility] [address] * LIPID PANEL (08/05/2025 12:58 PM CDT) CHOLESTEROL 127 <200 mg/dL [facility] HDL 45 > OR = 40 mg/dL [facility] TRIGLYCERIDE 126 <150 mg/dL [facility] LDL CALCULATED 61 mg/dL (calc) [facility] Comment: Reference [...] LDL-C. Wilberto SS et al. GONZALES. 2013;310(18): 3538-3995 (http://education.[employer]/faq/ALA084) CHOL/HDL RATIO 2.8 <5.0 (calc) [facility] NON-HDL CHOLESTEROL 82 <130 mg/dL (calc) [facility] Comment: For patients with diabetes plus 1 major ASCVD risk factor, treating to a non-HDL-C goal of <100 mg/dL (LDL-C of <70 mg/dL) is considered a therapeutic option. Test Performed at: [facility] [address] [place] [address] Pat Ulrich MD Blood 08/05/2025 12:5 8 PM CDT 08/06/2025 4:10 AM CDT February [facility] CHEMISTRY ORDERABLES Final Resul t [facility] [phone] [facility] [place] [address] * (ABNORMAL) COMPREHENSIVE METABOLIC PANEL (08/05/2025 12:58 PM CDT) GLUCOSE 136(H) 65 - 99 mg/dL [facility] Comment: Fasting reference interval For someone without known diabetes, a glucose value >125 mg/dL indicates that they may have diabetes and this should be confirmed with a follow-up test. BUN 28(H) 7 - 25 mg/dL [facility] CREATININE 1.13 0.70 - 1.28 mg/dL [facility] GFR 70 > OR = 60 mL/min/1.7 3m2 [facility] BUN/CREAT RATIO 25(H) 6 - 22 (calc) [facility] SODIUM 138 135 - 146 mmol/L [facility] POTASSIUM 4.6 3.5 - 5.3 mmol/L [facility] CHLORIDE 100 98 - 110 mmol/L [facility] CO2 28 20 - 32 mmol/L [facility] CALCIUM 9.5 8.6 - 10.3 mg/dL [facility] TOTAL PROTEIN 7.3 6.1 - 8.1 g/dL [facility] ALBUMIN 4.1 3.6 - 5.1 g/dL [facility] GLOBULIN 3.2 1.9 - 3.7 g/dL (calc) [facility] ALBUMIN/GLOBULIN RATIO 1.3 1.0 - 2.5 (calc) [facility] BILIRUBIN TOTAL 0.6 0.2 - 1.2 mg/dL [facility] ALKALINE PHOSPHATASE 75 35 - 144 U/L [facility] AST 22 10 - 35 U/L [facility] ALT 25 9 - 46 U/L [facility] Comment: Test Performed at: [facility] [id number] [place] [phone] Pat Ulrich MD Blood 08/05/2025 12:5 8 PM CDT 08/06/2025 4:10 AM CDT February SUPERVISOR CELL ROOM CHEMISTRY ORDERABLES Final Resul t [facility] [phone] [facility] [address] [place] [address] * US VENOUS REFLUX BILATERAL (07/23/2025 4:04 PM CDT) Anatomical Region Laterality Modality Lower Extremity Ultrasound 07/23/2025 2:13 PM CDT Narrative 07/24/2025 11:43 AM CDT [facility] [address] [place] [address] Noninvasive Vascular Lab Lower Extremity Vein mapping for Reflux Patient: Everardo Londono Study ID: US VENOUS REFLUX Gender: M : 1955 Age: 69 Room: Height: 182.9cm Weight: 155.1kg BSA: 2.88m^2 Pt status: Outpatient Study Date: 07/23/2025 Study Time: 02:13:33 PM BSA: 2.88m^2 Ordering: Charles Hernandez MD, RPVI Interpreting:Jono Moctezuma [employer] Core Molder: MARIMAR Indications: I87.2 Venous insufficiency. R22.43 Swelling of the lower extremities. History: Cellulitis of both lower extremities. Risk factors: Former smoker - years since quittinyr. Hypertension. IDDM- type II. Obese. Dyslipidemia. CHF. Summary Impression: 1. This is a suboptimal study due to swelling in both lower extremities. No obvious evidence of deep or superficial venous thrombosis involving the right lower extremity and left lower extremity. The calf vessels are poorly seen. 2. Reflux consistent with venous insufficiency involving the right lower extremity and left lower extremity. Incidental findings: Soft tissue edema is noted incidentally in both lower extremities. Lymphadenopathy is noted incidentally in both groins. Calcified arteries are noted incidentally in both lower extremities. Study data: Lower extremity vein mapping for reflux. Height: 182.9cm. Height: 72in. Weight: 155.1kg. Weight: 342lb. BMI: 46.4kg/m^2. BSA: 2.88m^2. Location: Vascular laboratory. Patient status: Outpatient. Study status: Routine. Procedure: A vascular evaluation was performed with the patient in the supine position and standing. Image quality was good. Incidental findings: Soft tissue edema is noted incidentally in both lower extremities. Lymphadenopathy is noted incidentally in both groins. Calcified arteries are noted incidentally in both lower extremities. Arterial flow: - Left posterior tibial distal: Left posterior tibial distal 0.88m/sec Triphasic - Right posterior tibial distal: Right posterior tibial distal 0.69m/sec Triphasic Venous flow and imaging: - Right great saphenous (thigh) prox 8.10mm 24.20mm 1.48 sec reflux - Right great saphenous (thigh) mid No reflux 4.80mm 13.70mm - Right great saphenous (thigh) distal No reflux 3.90mm 9.10mm - Right great saphenous (calf) Reflux greater than 2 sec 3.30mm 10.10mm 2.31 sec reflux - Right small saphenous No reflux - Right common femoral 0.90 sec reflux - Right saphenofemoral junction 12.00mm 34.50mm - Right femoral Prox 1.24 sec reflux Mid 1.2 sec reflux Distal 1.66 sec reflux - Left popliteal Reflux greater than 2 sec 3.81 sec reflux - L anterior accessory saphenous Reflux greater than 2 sec 7.70mm 16.10mm 2.61 sec reflux - L accessory great saphenous, knee level. No reflux 3.20mm - Right anterior tributary Reflux greater than 4 sec 5.50mm 9.80mm 4.13 sec reflux - Left great saphenous (thigh) prox 8.00mm 24.60mm 0.90 sec reflux - Left great saphenous (thigh) mid No reflux 4.20mm 14.20mm - Left great saphenous (thigh) distal No reflux 3.30mm 7.50mm - Left great saphenous (calf) 2.70mm 14.50mm 0.61 sec reflux - Left small saphenous No reflux - Left common femoral Reflux greater than 2 sec - Left saphenofemoral junction 10.00mm 38.20mm 1.12 sec reflux - Left femoral Prox 2.21 sec reflux Mid competent distal 0.63 sec reflux - Left popliteal 0.53 sec reflux - L anterior accessory saphenous No reflux 4.00mm 6.50mm - L accessory great saphenous, knee level. Reflux greater than 2 sec 4.10mm 1.30mm 2.15 sec reflux - Left anterior tributary 3.10mm 4.30mm 1.54 sec reflux. - L posterior arch 2.60mm 6.60mm 0.78 sec reflux [facility] is accredited with the [facility] Commission for the Accreditation of Vascular Laboratories (ICAVL) Prepared and Electronically Authenticated Jono Moctezuma Confirmed 07/24/2025 11:43 Procedure Note Jono Moctezuma MD - 07/24/2025 [facility] [address] [place] [id number] Noninvasive Vascular Lab Lower Extremity Vein mapping for Reflux Patient: Everardo Londono Study ID: US VENOUS REFLUX Gender: Kirk : 1955 Age: 69 Room: Height: 182.9cm Weight: 155.1kg BSA: 2.88m^2 Pt status: Outpatient Study Date: 07/23/2025 Study Time: 02:13:33 PM BSA: 2.88m^2 Ordering: Charles Hernandez MD, RPVI Interpreting:Jono Moctezuma Softball Core Molder: MARIMAR Indications: I87.2 Venous insufficiency. R22.43 Swelling of the lower extremities. History: Cellulitis of both lower extremities. Risk factors: Formersmoker - years since quittinyr. Hypertension. IDDM- type II. Obese. Dyslipidemia. CHF. Summary Impression: 1. This is a suboptimal study due to swelling in both lower extremities.No obvious evidence of deep or superficial venous thrombosis involvingthe right lower extremity and left lower extremity. The calf vessels arepoorly seen. 2. Reflux consistent with venous insufficiency involving the right lower extremity and left lower extremity. Incidental findings: Soft tissue edema is noted incidentally in bothlower extremities. Lymphadenopathy is noted incidentally in both groins.Calcified arteries are noted incidentally in both lower extremities. Study data: Lower extremity vein mapping for reflux. Height:182.9cm. Height: 72in. Weight: 155.1kg. Weight: 342lb. BMI: 46.4kg/m^2.BSA: 2.88m^2. Location: Vascular laboratory. Patient status: Outpatient. Study status: Routine. Procedure: A vascular evaluation was performedwith the patient in the supine position and standing. Image quality was good. Incidental findings: Soft tissue edema is noted incidentally in bothlower extremities. Lymphadenopathy is noted incidentally in both groins.Calcified arteries are noted incidentally in both lower extremities. Arterial flow: - Left posterior tibial distal: Left posterior tibial distal 0.88m/sec Triphasic - Right posterior tibial distal: Right posterior tibial distal 0.69m/sec Triphasic Venous flow and imaging: - Right great saphenous (thigh) prox 8.10mm 24.20mm 1.48 sec reflux - Right great saphenous (thigh) mid No reflux 4.80mm 13.70mm - Right great saphenous (thigh) distal No reflux 3.90mm 9.10mm - Right great saphenous (calf) Reflux greater than 2 sec 3.30mm 10.10mm2.31 sec reflux - Right small saphenous No reflux - Right common femoral 0.90 sec reflux - Right saphenofemoral junction 12.00mm 34.50mm - Right femoral Prox 1.24 sec reflux Mid 1.2 sec reflux Distal 1.66 sec reflux - Left popliteal Reflux greater than 2 sec 3.81 sec reflux - L anterior accessory saphenous Reflux greater than 2 sec 7.70mm 16.10mm2.61 sec reflux - L accessory great saphenous, knee level. No reflux 3.20mm - Right anterior tributary Reflux greater than 4 sec 5.50mm 9.80mm 4.13sec reflux - Left great saphenous (thigh) prox 8.00mm 24.60mm 0.90 sec reflux - Left great saphenous (thigh) mid No reflux 4.20mm 14.20mm - Left great saphenous (thigh) distal No reflux 3.30mm 7.50mm - Left great saphenous (calf) 2.70mm 14.50mm 0.61 sec reflux - Left small saphenous No reflux - Left common femoral Reflux greater than 2 sec - Left saphenofemoral junction 10.00mm 38.20mm 1.12 sec reflux - Left femoral Prox 2.21 sec reflux Mid competent distal 0.63 sec reflux - Left popliteal 0.53 sec reflux - L anterior accessory saphenous No reflux 4.00mm 6.50mm - L accessory great saphenous, knee level. Reflux greater than 2 sec4.10mm 1.30mm 2.15 sec reflux - Left anterior tributary 3.10mm 4.30mm 1.54 sec reflux. - L posterior arch 2.60mm 6.60mm 0.78 sec reflux [facility] is accredited withthe [facility]ters[facility] Commission for the Accreditation of Vascular Laboratories (ICAVL) Prepared and Electronically Authenticated Jono Moctezuma Confirmed 07/24/2025 11:43 Charles Hernandez MD ORDERABLES Final Result * [facility] VENOUS DUPLEX LOWER EXT COMP BI (06/20/2025 2:28 PM CDT) Khoi Barger MD [facility] ULTRASOUND Final R esult * MICROALBUMIN/CREATININE RATIO, RANDOM UR (01/25/2025 11:35 AM CDT) Creatinine, Urine 78 20 - 320 mg/dL [facility] MICROALBUMIN, URINE 1.5 See Note: mg/dL [facility] Comment: Reference Range: Reference Range [...] within a diagnostic category. Test Performed at: [facility] [address] [place] [address] Pat Ulrich MD Urine URINE SPECIMEN OBTAINED BY CLEAN CATCH PROCEDURE / Unknown 01/25/2025 11:35 AM CDT 01/26/2025 6:09 AM CDT February Lety SUPERVISOR CELL ROOM URINE ORDERABLES Final Result Drive [facility] [phone] [facility] [address] [place] [address] * (ABNORMAL) DIABETES EYE EXAM (08/23/2024 10:20 AM CDT) Abstract Provider HEALTH MAINTENANCE Edited Resu lt - Final * (ABNORMAL) COLON CANCER SCREEN, STOOL DNA (02/10/2024 3:25 PM CDT) COLOGUARD RESULT Positive( A) Negative [facility] Comment: POSITIVE TEST RESULT. A positive Cologuard [...] (Jered Collier al, N Engl J Med 2014;370(14):2750-0464.) Cologuard may produce a false negative or false positive result (no colorectal cancer or precancerous polyp present at colonoscopy follow up). A negative Cologuard test result does not guarantee the absence of CRC or advanced adenoma (pre-cancer). The current Cologuard screening interval is every 3 years. ([place] [employer] Society and U.S. Multi-Society Task Force). Cologuard performance data in a 10,000 patient pivotal study using colonoscopy as the reference method can be accessed at the following location: www.[employer].com/results. Additional description of the Cologuard test process, warnings and precautions can be found at www.cologuard.com. Stool STOOL SPECIMEN / Unknown 02/10/2024 3:25 PM CDT 02/14/2024 1:31 PM CDT Chance Dixon SUPERVISOR CELL ROOM BODY FLUIDS AND STOOLS Fin al Result [facility] CLIA # [id number] [address], [address] [place] [address] * HM DIABETES FOOT EXAM (09/16/2020 12:00 AM HAUL DRIVER) Sabina Garduno SUPERVISOR CELL ROOM HEALTH MAINTENANCE Edite d Result - Final * OCCULT BLOOD IMMUNOASSAY, COLORECTAL SCREEN (01/12/2019 12:00 AM HAUL DRIVER) Sgf Scanning BODY FLUIDS AND STOOLS Final Res ult from Last 3 Months or Most Recently Relevant to Health Maintenance Insurance MEDICAID [place] [facility] DUAL COMPLETE [facility]MO [facility] [id number] Care Teams Weeder Relationship Specialty Start Date End Date Kelsey Burgos DO [address] [place] [address] PCP - General Family Practice 08/10/10
--- OUTSIDE RECORDS SUMMARY | 2025-09-20 09:42 | XMS_ITS | Encounter Summary ---
Author Organization [facility] Address 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 Gender Identity Not on file Sexual Orientation Not on file documented as of this encounter Plan of Treatment Upcoming Encounters Date Type Department Care Team (Late st Contact Info) Description 10/15/2025 1:00 PM LABOR AND EMPLOYMENT PARALEGAL Office Visit [facility] [address] [place] [phone] February, [place] [phone] 10/22/2025 11:30 AM LABOR AND EMPLOYMENT PARALEGAL Office Visit [facility] [place] [address] [place] [address] Naida Wakefield MD [address] [place] [address] 10/25/2025 1:00 PM LABOR AND EMPLOYMENT PARALEGAL Office Visit [facility] [address] [place] [phone] February, [facility] [address] [place] [phone] documented as of this encounter Visit Diagnoses Not on filedocumented in this encounter Care Teams Bacon Skin Lifter Relationship Specialty Start Date End Date Kelsey Burgos DO [address] [place] [phone] PCP - General Family Practice 08/10/10 documented as of this encounter
--- OUTSIDE RECORDS SUMMARY | 2025-09-20 09:42 | XMS_ITS | Encounter Summary ---
Author Organization [facility] Address [address] [place] [address] Care Team Providers Care Intellectual Property Lawyer Name Role Phone Kelsey Burgos DO Primary Care Provider [phone] Encounter Details Date Type Department Care Team (Latest Contact Info) Description 04/06/2000 Outpatient Historical [address] [address] Landon Anderson DO [address] [place] [address] Backache, unspecified (Primary Dx); Skin sensation disturb; Urinary tract infection, site not specified Social History Tobacco Use Types Packs/Day Years Used Date Smoking Tobacco: Never Assessed Sex and Gender Information Value Date Recorded Sex Assigned at Not on file 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
--- OUTSIDE RECORDS SUMMARY | 2025-09-20 09:42 | XMS_ITS | Encounter Summary ---
Author Organization [facility] Address [address] [place] [address] Care Team Providers Care Senior Account Manager Name Role Phone Kelsey Burgos DO Primary Care Provider [phone] Encounter Details Date Type Department Care Team (Latest Contact Info) Description 04/01/2000 Outpatient Historical [address] [address] Landon Anderson DO [address] [place] [address] Sciatica (Primary Dx); Nonallopathic lesion of pelvic region, not elsewhere classified; Sprain of unspecified site of sacroiliac region Social History Tobacco Use Types Packs/Day Years Used Date Smoking Tobacco: Never Assessed Sex and Gender Information Value Date Recorded Sex Assigned at Not on file Legal Sex Male 5:20 AM 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
--- OUTSIDE RECORDS SUMMARY | 2025-09-20 09:42 | XMS_ITS | Encounter Summary ---
Author Organization [facility] Address [address] Banksn: Epic Prelude ADT SARAY BRYANT [address] Care Team Providers Care Meals On Wheels Driver Name Role Phone Kelsey Burgos DO Primary Care Provider Encounter Details Date Type Department Care Team (Late st Contact Info) Description 10/14/2000 Outpatient Historical Kenan Chang MD [address] [place] [address] Social History Tobacco Use Types Packs/Day Years Used Date Smoking Tobacco: Never Assessed Sex and Gender Information Value Date Recorded Sex Assigned at Not on file Legal Sex Male 5:20 AM CLINICAL TEAM MANAGER Gender Identity Not on file Sexual Orientation Not on file documented as of this encounter Plan of Treatment Not on file documented as of this encounter Visit Diagnoses Not on filedocumented in this encounter Additional Health Concerns Infection Onset Date Last Indicated Resolved Time MRSA Comment:Right leg 06/21/13 06/25/2013 06/25/2013 documented as of this encounter Care Teams Meals On Wheels Driver Relationship Specialty Start Date End Date Kelsey Burgos DO [address] [facility] [place] [address] PCP - General Family Practice 08/10/10 documented as of this encounter
[2025-09-20 09:44] VITALS: BP 158/78; PULSE 70; RESP 17; TEMP 36.6; O2SAT 93; BMI 43.4
--- NOTE | 2025-09-20 09:48 | ECG_ITS ---
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 Measurements Intervals [place] Rate: 61 P: 0 NV: 0 QRS: -71 QRSD: 97 T: 55 QT: 401 QTc: 405 Interpretive Statements ATRIAL FIBRILLATION INFERIOR MYOCARDIAL INFARCTION , PROBABLY OLD [40+ ms Q WAVE AND/OR ST/T ABNORMALITY IN II/aVF] ANTEROSEPTAL MYOCARDIAL INFARCTION , OF INDETERMINATE AGE [40+ ms Q WAVE IN V1-V4] Compared to ECG 05/10/2025 13:49:47 Ventricular premature complex(es) no longer present Aberrant conduction of supraventricular beat(s) no longer present Myocardial infarct finding still present Electronically Signed On 09-21-2025 12:59:58 CLINICAL BIOSTATISTICIAN by John Rodney M.D. [id number] [id number]
--- NOTE | 2025-09-20 10:06 | CT_ITS ---
WS: [id number] CT HEAD TECHNIQUE: Noncontrast CT of the head obtained from the skullbase to the vertex. CLINICAL INFORMATION: multiple falls, headache COMPARISON: 2022 DLP: 1148.[address] scans at [facility] use at least one of these dose optimization techniques: automated exposure control; mA and/or kV adjustment per patient size (includes targeted exams where dose is matched to clinical indication); or iterative reconstruction. FINDINGS: No evidence of intracranial hemorrhage or mass effect. Ventricular system and basal cisterns are patent. Mild small vessel changes with moderate parenchymal volume loss. No extra-axial fluid collections. No evidence of mass or mass effect. Vascular calcification Paranasal sinuses and mastoid air cells are well aerated. .Soft tissue edema overlying the inferior frontal calvarium CT/CT head wo con* [id number] IMPRESSION: 1. No evidence of intracranial hemorrhage or mass effect. 2. No acute intracranial findings.
--- NOTE | 2025-09-20 10:06 | XRR_ITS ---
PROCEDURE INFORMATION: Exam: XR Chest Exam date and time: 09/20/2025 10:50 AM Age: 70 years old Clinical indication: Pain; Angina pectoris; Additional info: HX chf, afib, p/w weakness, falls TECHNIQUE: Imaging protocol: Radiologic exam of the chest. Views: 1 view. COMPARISON: CR XR chest 1V portable [id number] 08/05/2024 2:12 PM FINDINGS: Lungs: Increased patchy opacity projecting over both lower lungs. Otherwise, grossly unremarkable. Pleural spaces: Unremarkable. No pleural effusion. No pneumothorax. Heart/Mediastinum: Unchanged mild cardiomegaly. Bones/joints: Unremarkable. Other findings: Limited by the patient's large size. XR/XR chest 1V portable [id number] IMPRESSION: 1. Increased patchy opacity projecting over both lower lungs. Unclear if this is edema and/or pneumonitis or if this is superimposition of large amounts of overlying soft tissue. 2. Unchanged mild cardiomegaly.
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
[2025-09-20 10:22] LABS: Glucose Urine UA 3+ (Normal); Nitrate Urine Negative (Negative); Specific Gravity, Urine 1.020 (1.005-1.030)
[2025-09-20 10:25] LABS: Hematocrit 45.9 % (37-53); Hemoglobin 13.80 g/dL (11.27-16.99); Mean Corpuscular HGB Conc 30.1 g/dL (30-55); Mean Corpuscular Hemoglobin 26.0 pg (27-33); Mean Corpuscular Volume 86.6 fl (82-101); Nucleated Red Blood Cells % 0 %; Platelet Count 164 10^3/cmm (157-399); Red Blood Count 5.30 10^6/uL (3.85-5.65); White Blood Count 7.01 10^3/uL (3.29-11.43)
[2025-09-20 10:39] LABS: INR 1.76 (0.8-1.2); Prothrombin Time 21.60 SECONDS (12.1-14.9)
[2025-09-20 10:40] LABS: Partial Thromboplastin Time 33.5 SECONDS (23.9-36.7)
[2025-09-20] MEDS: metoclopramide 5 mg/mL SDV 2 mL 10 MG IVP (10:41)
[2025-09-20 10:47] LABS: Troponin(5th) Baseline 24 ng/L (0-15)
[2025-09-20 10:48] VITALS: BP 106/52; PULSE 51; RESP 19; O2SAT 91
[2025-09-20 10:55] LABS: Alanine Aminotransferase 26 U/L (0-41); Albumin Level 4.3 g/dL (3.5-5.2); Alkaline Phosphatase 85 U/L (40-130); Anion Gap 17.8 (5-19); Aspartate Amino Transferase 23 U/L (0-40); Blood Urea Nitrogen 38 mg/dL (8-23); Calcium 8.9 mg/dL (8.5-10.5); Carbon Dioxide 24 mmol/L (22-29); Chloride 101 mmol/L (98-107); Creatinine Clr Calc Pharmacy 92.4672; Free T4 Free Thyroxine 1.06 ng/dL (0.82-1.77); Globulin 2.7 g/dL (1.3-4.6); Glucose 255 mg/dL (65-115); Magnesium 2.6 mg/dL (1.7-2.3); NT Pro B Type Natriuretic Pept 597 pg/mL (0-125); Osmolality Calculated 304 mOsm/kg (285-295); Potassium 4.8 mmol/L (3.5-5.1); Sodium 138 mmol/L (136-145); Thyroid Stimulating Hormone 8.14 uIU/mL (0.27-4.20); Total Protein 7.0 g/dL (6.6-8.7)
[2025-09-20 10:56] LABS: ABG PCO2 44.8 mmHg (35-45); ABG PH Result 7.36 (7.35-7.45); Arterial Blood Gas Hematocrit 41.0 % (42-52); Blood Gas Allen Test Pos; Blood Gas Operator Identificat MONRO; Blood Gas Sample Site Radial, right; Blood Gas Sample Type Arterial; Carboxyhemoglobin 2.9 %THgb (0.4-20.1); HCO3 ABG 25.3 mmol/L (22-26); Methemoglobin 0.1 % (0.4-1.5); PO2 ABG 77.6 mmHg (80.0-100.0); PO2 FiO2 Ratio Arterial Blood 369
[2025-09-20 11:00] VITALS: BP 117/71; PULSE 54; RESP 17; O2SAT 90
--- NOTE | 2025-09-20 11:04 | PC.PHAR ---
Pt states he has switched from Riddhi to Alen John
[2025-09-20 11:30] VITALS: BP 118/56; PULSE 51; RESP 17; O2SAT 91
[2025-09-20 11:53] LABS: Respiratory Syncytial Virus Ce NEGATIVE (Negative); SARS-CoV-2 PCR NEGATIVE (Negative)
--- NOTE | 2025-09-20 12:12 | PC.NURSE ---
Dr. Ladd requested ambulation trial. pt was able to ambulate around the nurses station with walker. pt uses a cane/walker at home.
[2025-09-20 12:20] VITALS: BP 132/56; PULSE 51; RESP 22; O2SAT 92
[2025-09-20 12:24] LABS: Troponin 5 2HR 23.28 ng/L (0-15)
[2025-09-20 12:28] LABS: Troponin 5 2HR Delta -0.72 ABS# (0-10)
== END 2025-09-20 12:25 | disposition home or self-care (01) ==
PROVIDERS: Emergency Provider Student in an Organized Health Care Education/Training Program; PCP Family Medicine
DX: R51.9 Headache, unspecified (principal); R53.1 Weakness; R42 Dizziness and giddiness; Z11.52 Encounter for screening for COVID-19; Z87.891 Personal history of nicotine dependence; Z86.73 Personal history of transient ischemic attack (TIA), and cerebral infarction without residual deficits; E11.9 Type 2 diabetes mellitus without complications; E78.5 Hyperlipidemia, unspecified; I11.0 Hypertensive heart disease with heart failure; I50.9 Heart failure, unspecified
CPT/HCPCS: 36415; 36600; 70450; 71045; 80053; 81001; 82805; 83735; 83880; 84439; 84443; 84484; 85025; 85610; 85730; 87637; 93005; 96374; 99285; J2765; J7030; J9999